=== PATIENT | female | born 1955 | race Caucasian/White ===

== ENCOUNTER 2020-03-09 13:12 | Inpatient (IN) | payer OTHER, MEDICAID ==
[~2020-03-09] VITALS: Ht 152.4 cm; Wt 48.9 kg
[~2020-03-09 13:12] MED LIST: AMIT50TA PO; ARIP2TAB3 PO; AZIT250T6 PO; DOXY100T PO; FLUO20CA16 PO; HYDR-2761 PO; IPRA4AER IH; LEVO75TA5 PO; LORA0.5T PO; POTA10TA12 PO; PRED-220 PO; SIMV40TA18 PO; SULF1TAB24 PO
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
[2020-03-09] MEDS ORDERED: IPRATRPIUM/ALBUTEROL 0.5/2.5MG 3 ML NEBU. NEB ONE (13:30)
[2020-03-09] MEDS ORDERED: IV NORMAL SALINE 1000ML BAG 1,000 ML IV ONE ×2 (13:30→14:30)
[2020-03-09] MEDS ORDERED: ASPIRIN CHEWABLE 81 MG TABLET. PO ONE (13:30)
[2020-03-09] MEDS ORDERED: predniSONE 20 MG TABLET PO ONE (13:30)
--- NOTE | 2020-03-09 13:42 | EKG ---
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
[2020-03-09 13:58] LABS: BASO # 0.1 x10^3/uL (0.0-0.2); BASO % 1 % (0-3); EOS # 0.1 x10^3/uL (0.0-0.7); EOS % 1 % (0-3); HEMATOCRIT 27.5 % (36.0-47.0); HEMOGLOBIN 9.2 g/dL (12.0-15.5); LYMPH # 0.8 x10^3/uL (1.0-4.8); LYMPH % 14 % (24-48); MEAN CORPUSCULAR HEMOGLOBIN 31 pg (25-35); MEAN CORPUSCULAR HGB CONC 34 g/dL (31-37); MEAN CORPUSCULAR VOLUME 92 fL (79-100); MONO # 0.2 x10^3/uL (0.0-1.1); MONO % 4 % (0-9); NEUT # 4.7 x10^3/uL (1.8-7.7); NEUT % 80 % (31-73); PLATELET COUNT 336 x10^3/uL (140-400); RED CELL DISTRIBUTION WIDTH 12.9 % (11.5-14.5); WHITE BLOOD COUNT 5.9 x10^3/uL (4.0-11.0)
[2020-03-09 14:05] LABS: CALCIUM 8.6 mg/dL (8.5-10.1); CREATININE 3.4 mg/dL (0.6-1.0); GFR 13.6; POTASSIUM 4.2 mmol/L (3.5-5.1)
[2020-03-09 14:13] LABS: ALBUMIN 3.9 g/dL (3.4-5.0); ALBUMIN/GLOBULIN RATIO 1.1 (1.0-1.7); MAGNESIUM 1.9 mg/dL (1.8-2.4); TOTAL BILIRUBIN 0.3 mg/dL (0.2-1.0); TOTAL PROTEIN 7.5 g/dL (6.4-8.2)
[2020-03-09] MEDS ORDERED: LIDOCAINE 1% Multi-Dose 20 ML VIAL. ONE (14:26)
--- NOTE | 2020-03-09 14:26 | RAD ---
CHEST AP ONLY 03/09/2020 1:21 PM INDICATION: Chest pain COMPARISON: 03/10/2016 TECHNIQUE: Portable frontal view of the chest is provided. FINDINGS: The cardiomediastinal silhouette is within normal limits. There is a large right sided pneumothorax with right apical pleural separation measuring 2.3 cm, lateral mid thoracic pleural separation measuring 6.7 cm and right basilar pleural separation of 6.8 cm. No significant mediastinal shift. There is atelectasis of the right lower lobe. Chronic interstitial changes are present. No new airspace consolidation is identified. Pulmonary emphysematous changes are suspected. Biapical pleural-parenchymal scarring. No suspicious osseous abnormality. IMPRESSION: Large right-sided pneumothorax without definite mediastinal shift. Chronic interstitial changes are present without new airspace consolidation. FOR INTERNAL CODING PURPOSES Critical result: Findings discussed with ONIEL VANCE at 03/09/2020 2:23 PM. RESULT CODE: (C) Electronically signed by: Krista Painter MD (03/09/2020 2:24 PM) [id number]
[2020-03-09] MEDS ORDERED: fentaNYL PF VIAL 100 MCG/2 ML VIAL IVP ONE (14:30)
[2020-03-09] MEDS ORDERED: LIDOCAINE 1% Multi-Dose 20 ML VIAL. INJ ONE (14:30)
--- NOTE | 2020-03-09 15:28 | RAD ---
CHEST AP ONLY 03/09/2020 12:00 AM INDICATION: Chest tube placement COMPARISON: 03/09/2020 TECHNIQUE: Portable frontal view of the chest is provided. FINDINGS: The cardiomediastinal silhouette is within normal limits. Right-sided thoracostomy catheter is identified projecting over the right midlung. Near complete resolution of right-sided pneumothorax with 4 mm persistent pleural separation. Patchy interstitial changes within the lungs may be chronic. No significant reexpansion edema is noted. Left lung is similar in appearance. No suspicious osseous abnormality. IMPRESSION: Right-sided thoracostomy tube has been placed with interval reexpansion the right lung with tiny persistent right-sided pneumothorax. Electronically signed by: Krista Painter MD (03/09/2020 3:25 PM) [id number]
[2020-03-09] MEDS ORDERED: ONDANSETRON PF 4 MG/2 ML VIAL. IV PRN (15:45)
--- NOTE | 2020-03-09 17:54 | RAD ---
EXAM: AP View of the chest DATE: 03/09/2020 5:22 PM INDICATION: Shortness of breath COMPARISON: 03/09/2020 FINDINGS/ IMPRESSION: Right chest tube is in position. Trace right apical pneumothorax is again seen, grossly unchanged. There are now new/increasing airspace opacities in the right mid and lower lung may represent atelectasis or consolidation although reexpansion syndrome is not excluded. Nodular opacity left midlung may represent focal consolidation. Imaging follow-up to resolution is recommended. No pleural effusion. Electronically signed by: Ady Colon MD (03/09/2020 5:51 PM) ANGELI
--- NOTE | 2020-03-09 19:15 | NUR ---
ADMISSION Pt arrival to room 256 at this time via ER bed. Pt transferred from bed to bed with assist. Pt has patent R upper chest tube in place. No sub Q air palpated at this time. Pt chest tube placed to continuous suction at -20. No air leak noted, connections all secured with tape. Dressing is CDI. Chest tube is draining a small amount of serosanguineous drainage into chest tube chamber. Admission questions completed with patient at this time. She complains of R sided chest tenderness, especially after coughing an intermittent dry cough. Pt updated on plan of care and education done about chest tube, pt verbalized understanding and questions answered. Dr. Reyez was called regarding pain management, home medications and code status as pt states she is a DNR with paperwork on file here at the hospital. Orders received. Order to change code status to DNR also received with Beni Peña RN as witness for this telephone order. service was also paged to notify of new consult with acute renal failure. 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 Pt resting comfortably in bed, items and call light in reach. [place] tray provided for meal.
[2020-03-09 19:25] VITALS: BP 143/73
[2020-03-09] MEDS ORDERED: LEVO88TA4 PO (20:00)
[2020-03-09] MEDS ORDERED: ASPI1TAB31 PO (20:00)
[2020-03-09] MEDS: HYDROcodone/APAP 5/325MG 1 TAB TABLET PO PRN (21:18)
[2020-03-09] MEDS: AMITRIPTYLINE HCL 25 MG TABLET. PO SCH (21:18)
[2020-03-09] MEDS: IV NORMAL SALINE 1000ML BAG 1,000 ML IV SCH (21:23)
[2020-03-09] MEDS: LORazepam 0.5 MG TABLET PO PRN (21:36)
[2020-03-09 23:00] VITALS: BP 121/72
[2020-03-10 03:03] VITALS: BP 129/64
[2020-03-10 05:06] LABS: BASO % 0 % (0-3); EOS % 0 % (0-3); HEMATOCRIT 22.7 % (36.0-47.0); HEMOGLOBIN 7.8 g/dL (12.0-15.5); LYMPH # 0.5 x10^3/uL (1.0-4.8); LYMPH % 5 % (24-48); MEAN CORPUSCULAR HEMOGLOBIN 31 pg (25-35); MEAN CORPUSCULAR HGB CONC 34 g/dL (31-37); MEAN CORPUSCULAR VOLUME 91 fL (79-100); MONO # 0.4 x10^3/uL (0.0-1.1); MONO % 3 % (0-9); NEUT # 11.2 x10^3/uL (1.8-7.7); NEUT % 92 % (31-73); PLATELET COUNT 266 x10^3/uL (140-400); RED CELL DISTRIBUTION WIDTH 13.4 % (11.5-14.5); WHITE BLOOD COUNT 12.1 x10^3/uL (4.0-11.0)
[2020-03-10 05:34] LABS: ALBUMIN 2.5 g/dL (3.4-5.0); ALBUMIN/GLOBULIN RATIO 0.9 (1.0-1.7); CREATININE 3.2 mg/dL (0.6-1.0); GFR 14.6; POTASSIUM 4.1 mmol/L (3.5-5.1); TOTAL BILIRUBIN 0.2 mg/dL (0.2-1.0); TOTAL PROTEIN 5.4 g/dL (6.4-8.2)
[2020-03-10] MEDS: HYDROcodone/APAP 5/325MG 1 TAB TABLET PO PRN ×3 (05:39→23:29)
[2020-03-10] MEDS: IV NORMAL SALINE 1000ML BAG 1,000 ML IV SCH ×2 (05:40→21:21)
--- NOTE | 2020-03-10 06:20 | RAD ---
Examination: Ultrasound kidneys HISTORY: History of renal failure COMPARISON: None available FINDINGS: The right kidney measures 8.0 x 4.5 x 4.2 cm. The left kidney measures 8.7 x 3.9 x 3.2 cm. Echogenic appearing bilateral kidneys. Small cysts identified in the bilateral kidneys. Urinary bladder is mildly distended. Partially visualized right pleural effusion. IMPRESSION: 1.Echogenic appearing bilateral kidneys probably medical renal disease. 2. Cystic structures identified in the bilateral kidneys probably cysts. Electronically signed by: Jean Carlos Blanc MD (03/10/2020 6:17 AM) [id number]
[2020-03-10 07:00] VITALS: BP 163/77
[2020-03-10 07:37] LABS: % BANDS 1 % (0-9); % LYMPHS 6 % (24-48); % MONOS 2 % (0-10); % SEGS 91 % (35-66); PLT ESTIMATE ADEQUATE (ADEQUATE)
[2020-03-10] MEDS ORDERED: FLU VACC QS 2020-21(6MOS+)/PF 0.5 ML SYRINGE. VAX IM ONE (09:00)
--- NOTE | 2020-03-10 09:47 | RAD ---
PORTABLE CHEST 1V Clinical indications: Chest tube. Follow-up study COMPARISON: March 09, 2020. FINDINGS/ IMPRESSION: Right-sided chest tube is unchanged in position. No pneumothorax is seen. No pleural effusion is seen. Consolidative infiltrate within the right lower lung zone is unchanged. There is an increase in interstitial infiltrate within the left midlung zone. Heart size and mediastinum are stable. There is moderate gaseous distention of the stomach. Electronically signed by: Darwin Rob MD (03/10/2020 9:44 AM) [id number]
[2020-03-10] MEDS: LEVOTHYROXINE 88 MCG TABLET PO SCH (10:51)
--- NOTE | 2020-03-10 10:54 | PDOC ---
Provider Note Date of Service: DATE: 03/10/20 TIME: 10:53 Provider Note Pt seen.H&P dictated.#[id number]. Justifications for Admission Other Justification SUZAN HEARD MD Mar 10, 2020 10:54
[2020-03-10 11:00] VITALS: BP 150/75
--- NOTE | 2020-03-10 11:39 | HP ---
ADMIT DATE: 03/09/2020 REASON FOR ADMISSION TO THE HOSPITAL: Spontaneous pneumothorax. HISTORY OF PRESENT ILLNESS: The patient is a 64-year-old female with chronic COPD, on home oxygen; poor functional status; anxiety; depression. She noticed to have worsening shortness of breath yesterday. She denies any injury or fall and was brought to the hospital. She had pneumothorax in the right. She has had a chest tube placed, was admitted to the second floor. The patient was seen by Pulmonology. PAST MEDICAL HISTORY: Has chronic COPD, anxiety, depression, chronic kidney disease. PAST SURGICAL HISTORY: Previous surgeries, no major surgeries. ALLERGIES: PENICILLIN. PERSONAL HISTORY: Former smoker, smoked for at least 30 years, 1 pack, stopped smoking 20 years ago. Denies alcohol or street drugs. MEDICATIONS AT HOME: The patient is on Excedrin p.r.n., amitriptyline 50 mg daily, hydrocodone 5/325 twice a day, levothyroxine 88 mcg daily, lorazepam 0.5 three times a day. She is on home oxygen. FAMILY HISTORY: Her mom had severe COPD and bad lungs; she . Dad had some cardiac problems, . REVIEW OF SYSTEMS: Denies any chest pain, worsening shortness of breath when she came in, she feels better, had some pain at the chest tube site. Denies any fever, denies any fall or injuries. PHYSICAL EXAMINATION: GENERAL: The patient looks chronically older than her age. VITAL SIGNS: Temperature 98, pulse 111, respirations 28, blood pressure 195/102, 95 on room air. The patient is on oxygen. HEENT: Head is atraumatic. Pupils equal. Oral cavity, no teeth. NECK: Supple. . CHEST: Chronic obstructive pulmonary disease. She is emaciated. CARDIOVASCULAR: S1, S2. LUNGS: Has a chest tube on the right side, diminished breath sounds. ABDOMEN: Soft, no mass palpable. The patient has a Gaspar catheter. RECTAL: Deferred. EXTREMITIES: No calf tenderness, no edema. The patient is having a conversation. NEUROLOGIC: Moving upper extremities and lower extremities. LABORATORY DATA: White count 6, hemoglobin 9, platelets 336. Electrolytes show sodium 140, potassium 4.2, chloride 105, bicarb 15, anion gap 20, BUN 33, creatinine 3.4. Lactic acid 0.6, magnesium 1.9. LFTs normal. Troponin is negative. Chest x-ray at admission shows pneumothorax on the right side. FINAL IMPRESSION: 1. Spontaneous right pneumothorax. 2. Chronic obstructive pulmonary disease with emphysema. 3. Chronic kidney disease, creatinine of 3. 4. Hypothyroidism. 5. Anxiety with depression. PLAN: At this time, the patient was admitted to the hospital, had a chest tube placed in the Emergency Room with water seal. Patient was admitted to the second floor. Pulmonary is consulted and the patient also has kidney failure with creatinine of 3.5 and 1.5 two years ago. We will do ultrasound of the kidneys, renal consult, cautious hydration and see if that improves her renal function. SUZAN HEARD MD DR: ANGELA/lei JOB#: [id number] / [id number]
--- NOTE | 2020-03-10 11:39 | CONS ---
DATE OF CONSULTATION: PULMONARY CONSULTATION ATTENDING PHYSICIAN: Tita Reyez MD REASON FOR CONSULTATION: Pneumothorax. HISTORY OF PRESENT ILLNESS: The patient is a 64-year-old who has history of tobacco use for 25-30 years, but quit 20 years ago. She is not on home oxygen. She came into the hospital with complaint of chest pain. It was mostly heaviness over the last 2 weeks. She has some dyspnea for the same duration. No headaches. No trauma. No nausea, vomiting or diarrhea. No significant weight loss. She was seen in the Emergency Room and she was found to have a large pneumothorax. As a result, she underwent chest tube. The lung is now almost reexpanded. However, there were some interstitial infiltrates seen bilaterally, which did increase since admission. She is getting IV fluids for SY versus CKD. She still has an air leak. This is the first time she has a pneumothorax. PAST MEDICAL HISTORY: Significant for COPD, unknown FEV1. History of CHF, dementia, depression, migraines and pneumonia. History of lupus. Anemia and anxiety. PAST SURGICAL HISTORY: No surgeries. SOCIAL HISTORY: Quit tobacco 20 years ago, before the smoke for about 25-30 years. ALLERGIES: PENICILLIN. MEDICATIONS: Reviewed as listed in the MRAD. REVIEW OF SYSTEMS: A 12-point system review obtained. Pertinent positives discussed in my history of present illness, otherwise noncontributory. All systems that were negative were reviewed as well. FAMILY HISTORY: non contributary to lungs PHYSICAL EXAMINATION: VITAL SIGNS: Reviewed, pulse ox 100% on 2 liters. NECK: Supple. LUNGS: With few crackles, right base. CARDIOVASCULAR: With a regular rate. ABDOMEN: Soft. EXTREMITIES: With no pitting edema. LABORATORY DATA: Reviewed. White cell count 12.1, hemoglobin 7.8, and platelets are 266. Her BUN and creatinine are 39 and 3.2. IMPRESSION: 1. Nontraumatic spontaneous right-sided pneumothorax. This is the first time she had the pneumothorax, likely related to chronic obstructive pulmonary disease. 2. Interstitial infiltrates, more on the right than on the left. Could be related to mild interstitial edema. She is getting IV fluids for her acute kidney injury versus chronic kidney disease. Need to closely watch. At this point, her saturations are stable on 2 liters. 3. Underlying chronic obstructive pulmonary disease. RECOMMENDATIONS: 1. Continue chest tube to suction. She has an air leak. 2. Follow daily chest x-rays. 3. Need to closely watch her oxygenation while getting her IV fluids. 4. Obtain proBNP and procalcitonin level. Clinically, less likely pneumonia. 5. We will follow along with you. Discussed with Dr. Reyez. GAIVN MATHIAS MD DR: YOGESH/lei JOB#: [id number] / [id number] FAN
[2020-03-10 15:00] VITALS: BP 128/72
[2020-03-10 20:00] VITALS: BP 136/72
--- NOTE | 2020-03-10 21:14 | CONS ---
DATE OF CONSULTATION: NEPHROLOGY CONSULTATION REQUESTING PHYSICIAN: Tita Reyez MD. REASON FOR CONSULTATION: Renal failure. HISTORY OF PRESENT ILLNESS: This is a 64-year-old female with history of COPD and hypothyroidism. She has no history of diabetes mellitus, nephrolithiasis, gross hematuria, difficulty with urination or hypertension. She has no history of malignancies. She now presents with spontaneous pneumothorax, being evaluated for the same. Per discussion with Dr. Reyez, the patient's serum creatinine was 1.5 mg percent 2 years prior to this evaluation; 2 months prior to evaluation, it was 3. She was instructed to see a reservations and ticketing agent, but has not pursued the same. Currently, creatinine is 3.2, GFR 14.6. Potassium 4.1, CO2 of 15. No nausea, vomiting or diarrhea. PAST MEDICAL HISTORY: COPD, hypothyroidism, anxiety, depression. ALLERGIES: PENICILLIN. MEDICATIONS: Reviewed per medication list. FAMILY HISTORY: Noncontributory. SOCIAL HISTORY: The patient is a former smoker, discontinued 20 years ago, [id number] prior to that time. REVIEW OF SYSTEMS: No headache, sinus problem, nasal drainage, epistaxis, change in vision or hearing. No difficulty swallowing. No fever, chills, cough, sputum, hemoptysis. No chest pain or shortness of breath at this time. No abdominal pain. No nausea, vomiting, diarrhea. No seizures or malignancies. She does have chest tube in place. PHYSICAL EXAMINATION: GENERAL APPEARANCE: The patient is awake, conversant. She looks older than her stated age. HEENT: Bitemporal wasting. Eyes are sunken, sallow complexion. NECK: No increased JVD. No thyromegaly, mass or adenopathy. LUNGS: Clear. CARDIAC: Without S3 or rub. ABDOMEN: Scaphoid, nontender. EXTREMITIES: Diffuse muscle wasting. No edema. NEUROLOGIC: Nonfocal, nonlocalized. PSYCHIATRIC: Fair attention to detail, appropriate affect. LABORATORY DATA: Sodium 140, potassium 4.1, chloride 109, CO2 of 15, BUN 39, creatinine 3.2, GFR 14.6, glucose 145, total protein 5.4, albumin 2.5. Hemoglobin 7.8, hematocrit 22.7, white count 12.1, platelets 266. IMPRESSION: Renal failure, chronic. Has been progressive over at least several years. Renal ultrasound revealed right kidney 8 cm and left 8.7 cm, both echogenic and small. Chronic kidney disease - very likely end-stage renal disease status. She has small kidneys and has markedly reduced GFR. No history of diabetes mellitus or hypertension per her report and records. May have underlying chronic interstitial nephritis or chronic glomerulonephritis. PLAN: 1. 24-hour urine for total protein. 2. Trend labs. 3. May require initiation of dialysis. RADHA HOWE MD DR: CIPRIANO/lei JOB#: [id number] / [id number]
[2020-03-10] MEDS: AMITRIPTYLINE HCL 25 MG TABLET. PO SCH (21:19)
[2020-03-10 23:35] VITALS: BP 166/67
[2020-03-11] MEDS: IV NORMAL SALINE 1000ML BAG 1,000 ML IV SCH ×3 (02:15→19:17)
[2020-03-11] MEDS: LORazepam 0.5 MG TABLET PO PRN ×3 (02:34→19:15)
[2020-03-11 03:35] VITALS: BP 143/64
[2020-03-11 04:38] LABS: BASO % 0 % (0-3); EOS % 0 % (0-3); HEMATOCRIT 21.4 % (36.0-47.0); HEMOGLOBIN 7.1 g/dL (12.0-15.5); LYMPH % 12 % (24-48); MEAN CORPUSCULAR HEMOGLOBIN 31 pg (25-35); MEAN CORPUSCULAR HGB CONC 33 g/dL (31-37); MEAN CORPUSCULAR VOLUME 93 fL (79-100); MONO # 0.6 x10^3/uL (0.0-1.1); MONO % 7 % (0-9); NEUT # 7.1 x10^3/uL (1.8-7.7); NEUT % 81 % (31-73); PLATELET COUNT 236 x10^3/uL (140-400); RED BLOOD COUNT 2.31 x10^6/uL (3.50-5.40); RED CELL DISTRIBUTION WIDTH 13.4 % (11.5-14.5); WHITE BLOOD COUNT 8.8 x10^3/uL (4.0-11.0)
[2020-03-11 04:52] LABS: ALBUMIN 2.7 g/dL (3.4-5.0); CALCIUM 7.9 mg/dL (8.5-10.1); CREATININE 3.1 mg/dL (0.6-1.0); GFR 15.2; POTASSIUM 3.4 mmol/L (3.5-5.1); TOTAL BILIRUBIN 0.2 mg/dL (0.2-1.0); TOTAL PROTEIN 5.5 g/dL (6.4-8.2)
[2020-03-11] MEDS: LEVOTHYROXINE 88 MCG TABLET PO SCH (06:18)
[2020-03-11 07:00] VITALS: BP 128/61
--- NOTE | 2020-03-11 08:47 | RAD ---
EXAM: CHEST AP ONLY INDICATION: Reason: pneumohtorax / Spl. Instructions: / History: . TECHNIQUE: Single view COMPARISON: 03/10/2020 chest x-ray FINDINGS: Stable right chest tube. The heart size is normal. The great vessels show aortic calcification and otherwise appear unremarkable. There is no hilar or mediastinal mass. Lungs show biapical pleural thickening and scarring in the setting of COPD with residual opacity in the right lung, gradually improved in the interval. No radiographically apparent pneumothorax or pleural effusion. There are no significant osseous abnormalities. IMPRESSION: COPD with improving aeration in the right lung with a right chest tube in place. No definite residual pneumothorax or pleural effusion seen. Electronically signed by: Eufemia Moran MD (03/11/2020 8:44 AM) [facility] [place]
--- NOTE | 2020-03-11 10:28 | PDOC ---
PULMONARY PROGRESS NOTES DATE: 03/11/20 TIME: 10:16 Subjective no overnight concerns no increased SOB, no cough chest tube still has air leak Vitals Vital Signs Date Time Temp Pulse Resp B/P (MAP) Pulse Ox O2 Delivery O2 Flow Rate FiO2 03/11/20 08:00 Nasal Cannula 2.0 03/11/20 07:00 98.0 80 16 128/61 (83) 100 98.0 ROS: No Nausea, No Chest Pain, No Abdominal Pain, No Increase Cough General: Alert, Oriented X4 Lungs: Clear Cardiovascular: S1, S2 Abdomen: Soft Neuro Exam: Alert Extremities: No Edema Skin: Warm, Dry Labs Laboratory Tests Test 03/09/20 13:42 03/09/20 14:17 03/10/20 02:00 03/10/20 04:00 White Blood Count 5.9 x10^3/uL (4.0-11.0) 12.1 x10^3/uL (4.0-11.0) Red Blood Count 3.00 x10^6/uL (3.50-5.40) 2.50 x10^6/uL (3.50-5.40) Hemoglobin 9.2 g/dL (12.0-15.5) 7.8 g/dL (12.0-15.5) Hematocrit 27.5 % (36.0-47.0) 22.7 % (36.0-47.0) Mean Corpuscular Volume 92 fL (79-100) 91 fL (79-100) Mean Corpuscular Hemoglobin 31 pg (25-35) 31 pg (25-35) Mean Corpuscular Hemoglobin Concent 34 g/dL (31-37) 34 g/dL (31-37) Red Cell Distribution Width 12.9 % (11.5-14.5) 13.4 % (11.5-14.5) Platelet Count 336 x10^3/uL (140-400) 266 x10^3/uL (140-400) Neutrophils (%) (Auto) 80 % (31-73) 92 % (31-73) Lymphocytes (%) (Auto) 14 % (24-48) 5 % (24-48) Monocytes (%) (Auto) 4 % (0-9) 3 % (0-9) Eosinophils (%) (Auto) 1 % (0-3) 0 % (0-3) Basophils (%) (Auto) 1 % (0-3) 0 % (0-3) Neutrophils # (Auto) 4.7 x10^3/uL (1.8-7.7) 11.2 x10^3/uL (1.8-7.7) Lymphocytes # (Auto) 0.8 x10^3/uL (1.0-4.8) 0.5 x10^3/uL (1.0-4.8) Monocytes # (Auto) 0.2 x10^3/uL (0.0-1.1) 0.4 x10^3/uL (0.0-1.1) Eosinophils # (Auto) 0.1 x10^3/uL (0.0-0.7) 0.0 x10^3/uL (0.0-0.7) Basophils # (Auto) 0.1 x10^3/uL (0.0-0.2) 0.0 x10^3/uL (0.0-0.2) Sodium Level 140 mmol/L (136-145) 140 mmol/L (136-145) Potassium Level 4.2 mmol/L (3.5-5.1) 4.1 mmol/L (3.5-5.1) Chloride Level 105 mmol/L (98-107) 109 mmol/L (98-107) Carbon Dioxide Level 15 mmol/L (21-32) 15 mmol/L (21-32) Anion Gap 20 (6-14) 16 (6-14) Blood Urea Nitrogen 33 mg/dL (7-20) 39 mg/dL (7-20) Creatinine 3.4 mg/dL (0.6-1.0) 3.2 mg/dL (0.6-1.0) Estimated GFR (Cockcroft-Gault) 13.6 14.6 BUN/Creatinine Ratio 10 (6-20) 12 (6-20) Glucose Level 81 mg/dL (70-99) 145 mg/dL (70-99) Calcium Level 8.6 mg/dL (8.5-10.1) 8.0 mg/dL (8.5-10.1) Magnesium Level 1.9 mg/dL (1.8-2.4) Total Bilirubin 0.3 mg/dL (0.2-1.0) 0.2 mg/dL (0.2-1.0) Aspartate Amino Transf (AST/SGOT) 17 U/L (15-37) 15 U/L (15-37) Alanine Aminotransferase (ALT/SGPT) 12 U/L (14-59) 7 U/L (14-59) Alkaline Phosphatase 90 U/L (46-116) 71 U/L (46-116) Creatine Kinase 38 U/L (26-192) Troponin I Quantitative < 0.017 ng/mL (0.000-0.055) TT-Thc-Z-Type Natriuretic Peptide 1918 pg/mL (0-124) 1864 pg/mL (0-124) Total Protein 7.5 g/dL (6.4-8.2) 5.4 g/dL (6.4-8.2) Albumin 3.9 g/dL (3.4-5.0) 2.5 g/dL (3.4-5.0) Albumin/Globulin Ratio 1.1 (1.0-1.7) 0.9 (1.0-1.7) Lipase 139 U/L (73-393) Lactic Acid Level 0.6 mmol/L (0.4-2.0) Procalcitonin 1.12 ng/mL (0.00-0.10) Segmented Neutrophils % 91 % (35-66) Band Neutrophils % 1 % (0-9) Lymphocytes % 6 % (24-48) Monocytes % 2 % (0-10) Platelet Estimate Adequate (ADEQUATE) Test 03/11/20 04:00 White Blood Count 8.8 x10^3/uL (4.0-11.0) Red Blood Count 2.31 x10^6/uL (3.50-5.40) Hemoglobin 7.1 g/dL (12.0-15.5) Hematocrit 21.4 % (36.0-47.0) Mean Corpuscular Volume 93 fL (79-100) Mean Corpuscular Hemoglobin 31 pg (25-35) Mean Corpuscular Hemoglobin Concent 33 g/dL (31-37) Red Cell Distribution Width 13.4 % (11.5-14.5) Platelet Count 236 x10^3/uL (140-400) Neutrophils (%) (Auto) 81 % (31-73) Lymphocytes (%) (Auto) 12 % (24-48) Monocytes (%) (Auto) 7 % (0-9) Eosinophils (%) (Auto) 0 % (0-3) Basophils (%) (Auto) 0 % (0-3) Neutrophils # (Auto) 7.1 x10^3/uL (1.8-7.7) Lymphocytes # (Auto) 1.0 x10^3/uL (1.0-4.8) Monocytes # (Auto) 0.6 x10^3/uL (0.0-1.1) Eosinophils # (Auto) 0.0 x10^3/uL (0.0-0.7) Basophils # (Auto) 0.0 x10^3/uL (0.0-0.2) Sodium Level 141 mmol/L (136-145) Potassium Level 3.4 mmol/L (3.5-5.1) Chloride Level 110 mmol/L (98-107) Carbon Dioxide Level 19 mmol/L (21-32) Anion Gap 12 (6-14) Blood Urea Nitrogen 38 mg/dL (7-20) Creatinine 3.1 mg/dL (0.6-1.0) Estimated GFR (Cockcroft-Gault) 15.2 BUN/Creatinine Ratio 12 (6-20) Glucose Level 69 mg/dL (70-99) Calcium Level 7.9 mg/dL (8.5-10.1) Total Bilirubin 0.2 mg/dL (0.2-1.0) Aspartate Amino Transf (AST/SGOT) 14 U/L (15-37) Alanine Aminotransferase (ALT/SGPT) 11 U/L (14-59) Alkaline Phosphatase 63 U/L (46-116) Total Protein 5.5 g/dL (6.4-8.2) Albumin 2.7 g/dL (3.4-5.0) Albumin/Globulin Ratio 1.0 (1.0-1.7) Laboratory Tests Test 03/11/20 04:00 White Blood Count 8.8 x10^3/uL (4.0-11.0) Red Blood Count 2.31 x10^6/uL (3.50-5.40) Hemoglobin 7.1 g/dL (12.0-15.5) Hematocrit 21.4 % (36.0-47.0) Mean Corpuscular Volume 93 fL (79-100) Mean Corpuscular Hemoglobin 31 pg (25-35) Mean Corpuscular Hemoglobin Concent 33 g/dL (31-37) Red Cell Distribution Width 13.4 % (11.5-14.5) Platelet Count 236 x10^3/uL (140-400) Neutrophils (%) (Auto) 81 % (31-73) Lymphocytes (%) (Auto) 12 % (24-48) Monocytes (%) (Auto) 7 % (0-9) Eosinophils (%) (Auto) 0 % (0-3) Basophils (%) (Auto) 0 % (0-3) Neutrophils # (Auto) 7.1 x10^3/uL (1.8-7.7) Lymphocytes # (Auto) 1.0 x10^3/uL (1.0-4.8) Monocytes # (Auto) 0.6 x10^3/uL (0.0-1.1) Eosinophils # (Auto) 0.0 x10^3/uL (0.0-0.7) Basophils # (Auto) 0.0 x10^3/uL (0.0-0.2) Sodium Level 141 mmol/L (136-145) Potassium Level 3.4 mmol/L (3.5-5.1) Chloride Level 110 mmol/L (98-107) Carbon Dioxide Level 19 mmol/L (21-32) Anion Gap 12 (6-14) Blood Urea Nitrogen 38 mg/dL (7-20) Creatinine 3.1 mg/dL (0.6-1.0) Estimated GFR (Cockcroft-Gault) 15.2 BUN/Creatinine Ratio 12 (6-20) Glucose Level 69 mg/dL (70-99) Calcium Level 7.9 mg/dL (8.5-10.1) Total Bilirubin 0.2 mg/dL (0.2-1.0) Aspartate Amino Transf (AST/SGOT) 14 U/L (15-37) Alanine Aminotransferase (ALT/SGPT) 11 U/L (14-59) Alkaline Phosphatase 63 U/L (46-116) Total Protein 5.5 g/dL (6.4-8.2) Albumin 2.7 g/dL (3.4-5.0) Albumin/Globulin Ratio 1.0 (1.0-1.7) Medications Active Scripts Medications Dose Route/Sig Max Daily Dose Days Date Category Excedrin Migraine Caplet (Aspirin/Acetaminophen/Caffeine) 1 Each Tablet 1 Each PO PRN BID PRN 03/09/20 Reported Levothyroxine Sodium 88 Mcg Tablet 1 Tab PO DAILY 03/09/20 Reported Amitriptyline Hcl 50 Mg Tablet 1 Tab PO QHS 10/14/15 Reported Hydrocodone-Apap 5-325 (Hydrocodone Bit/Acetaminophen) 1 Each Tablet 1 Tab PO PRN Q12HRS PRN 10/14/15 Reported Lorazepam 0.5 Mg Tablet 0.5 Mg PO TID PRN 10/13/15 Reported Comments CXR IMPRESSION: COPD with improving aeration in the right lung with a right chest tube in place. No definite residual pneumothorax or pleural effusion seen. Impression . IMPRESSION: 1. Nontraumatic spontaneous right-sided pneumothorax. This is the first time she had the pneumothorax, likely related to chronic obstructive pulmonary disease. 2. Interstitial infiltrates, more on the right than on the left. Could be related to mild re-expansion interstitial edema. She is getting IV fluids for her acute kidney injury versus chronic kidney disease. Need to closely watch. At this point, her saturations are stable on 2 liters. 3. Underlying chronic obstructive pulmonary disease. 4. SY--- ongoing Plan . RECOMMENDATIONS: Continue supplemental oxygen to keep sats above 92% Continue chest tube to suction. She still has an air leak. Follow daily chest x-rays--- CXR- worsening bilateral infiltrates re-expansion pulm. edema vs. pneumonia Will initiate abx today Hold of on lasix 2/2 renal function Follow Renal recommendations DVT/GI PPX D/W RN and PT. DNR GAVIN MATHIAS MD Mar 11, 2020 10:28
[2020-03-11 11:00] VITALS: BP 134/65
--- NOTE | 2020-03-11 11:55 | PDOC ---
PROGRESS NOTES Date of Service: DATE: 03/11/20 TIME: 11:52 Subjective Subjective anxious and pain at chest tube site Objective Objective Vital Signs Date Time Temp Pulse Resp B/P (MAP) Pulse Ox O2 Delivery O2 Flow Rate FiO2 03/11/20 08:00 Nasal Cannula 2.0 03/11/20 07:00 98.0 80 16 128/61 (83) 100 98.0 Intake and Output 03/11/20 07:00 Intake Total 418 ml Output Total 2240 ml Balance -1822 ml Intake Oral 418 ml Output Urine Total 2050 ml Chest Tube Drainage Total 190 ml # Voids 1 # Bowel Movements 2 Physical Exam Abdomen: Soft Heart: Normal S1, Normal S2 Extremities: No clubbing General: Alert HEENT: Atraumatic Lungs: Clear to auscultation MUSCULOSKELETAL: No deformity Neck: Supple Neuro: Normal speech Psych/Mental Status: Mental status NL Skin: No breakdown COMMENT Rt chest tube Diagnosis Problem List Problems Medical Problems: (1) Acute renal failure Status: Acute (2) Adult failure to thrive Status: Acute (3) Anemia Status: Acute (4) Secondary spontaneous pneumothorax Status: Acute Assessment Assessment Problems Medical Problems: (1) Acute renal failure Status: Acute (2) Adult failure to thrive Status: Acute (3) Anemia Status: Acute (4) Secondary spontaneous pneumothorax Status: Acute FINAL IMPRESSION: 1. Spontaneous right Pneumothorax. 2. Chronic obstructive pulmonary disease with emphysema. 3. Chronic kidney disease, creatinine of 3. 4. Hypothyroidism. 5. Anxiety with depression. PLAN: chest t ub eplaced in ER water seal cxr improvement cr 3.1. sono kidneys, shows ch kidney diasese. dvt prevention. xanax+lortab At this time, the patient was admitted to the hospital, had a chest tube placed in the Emergency Room with water seal. Patient was admitted to the second floor. Pulmonary is consulted and the patient also has kidney failure with creatinine of 3.5 and 1.5 two years ago. We will do ultrasound of the kidneys, renal consult, cautious hydration and see if that improves her renal function. Plan Plan of Care Problems Medical Problems: (1) Acute renal failure Status: Acute (2) Adult failure to thrive Status: Acute (3) Anemia Status: Acute (4) Secondary spontaneous pneumothorax Status: Acute Comment Review of Relevant I have reviewed the following items rené (where applicable) has been applied. Labs Laboratory Tests Test 03/11/20 04:00 White Blood Count 8.8 x10^3/uL (4.0-11.0) Red Blood Count 2.31 x10^6/uL (3.50-5.40) Hemoglobin 7.1 g/dL (12.0-15.5) Hematocrit 21.4 % (36.0-47.0) Mean Corpuscular Volume 93 fL (79-100) Mean Corpuscular Hemoglobin 31 pg (25-35) Mean Corpuscular Hemoglobin Concent 33 g/dL (31-37) Red Cell Distribution Width 13.4 % (11.5-14.5) Platelet Count 236 x10^3/uL (140-400) Neutrophils (%) (Auto) 81 % (31-73) Lymphocytes (%) (Auto) 12 % (24-48) Monocytes (%) (Auto) 7 % (0-9) Eosinophils (%) (Auto) 0 % (0-3) Basophils (%) (Auto) 0 % (0-3) Neutrophils # (Auto) 7.1 x10^3/uL (1.8-7.7) Lymphocytes # (Auto) 1.0 x10^3/uL (1.0-4.8) Monocytes # (Auto) 0.6 x10^3/uL (0.0-1.1) Eosinophils # (Auto) 0.0 x10^3/uL (0.0-0.7) Basophils # (Auto) 0.0 x10^3/uL (0.0-0.2) Sodium Level 141 mmol/L (136-145) Potassium Level 3.4 mmol/L (3.5-5.1) Chloride Level 110 mmol/L (98-107) Carbon Dioxide Level 19 mmol/L (21-32) Anion Gap 12 (6-14) Blood Urea Nitrogen 38 mg/dL (7-20) Creatinine 3.1 mg/dL (0.6-1.0) Estimated GFR (Cockcroft-Gault) 15.2 BUN/Creatinine Ratio 12 (6-20) Glucose Level 69 mg/dL (70-99) Calcium Level 7.9 mg/dL (8.5-10.1) Total Bilirubin 0.2 mg/dL (0.2-1.0) Aspartate Amino Transf (AST/SGOT) 14 U/L (15-37) Alanine Aminotransferase (ALT/SGPT) 11 U/L (14-59) Alkaline Phosphatase 63 U/L (46-116) Total Protein 5.5 g/dL (6.4-8.2) Albumin 2.7 g/dL (3.4-5.0) Albumin/Globulin Ratio 1.0 (1.0-1.7) Vitals/I & O Vital Sign - Last 24 Hours 03/10/20 03/10/20 03/10/20 03/10/20 15:00 17:05 18:05 20:00 Temp 98.2 97.6 98.2 97.6 Pulse 84 82 Resp 16 18 B/P (MAP) 128/72 (90) 136/72 (93) Pulse Ox 99 100 O2 Delivery Nasal Cannula Nasal Cannula Nasal Cannula Nasal Cannula O2 Flow Rate 2.0 2.0 2.0 2.0 03/10/20 03/10/20 03/10/20 03/11/20 20:00 23:29 23:35 00:30 Temp 97.8 97.8 Pulse 83 Resp 18 B/P (MAP) 166/67 (100) Pulse Ox 100 O2 Delivery Nasal Cannula Room Air Nasal Cannula Nasal Cannula O2 Flow Rate 2.0 2.0 2.0 03/11/20 03/11/20 03/11/20 03:35 07:00 08:00 Temp 97.7 98.0 97.7 98.0 Pulse 83 80 Resp 18 16 B/P (MAP) 143/64 (90) 128/61 (83) Pulse Ox 97 100 O2 Delivery Nasal Cannula Nasal Cannula Nasal Cannula O2 Flow Rate 2.0 2.0 2.0 Intake and Output 03/10/20 03/10/20 03/11/20 15:00 23:00 07:00 Intake Total 118 ml 300 ml Output Total 400 ml 390 ml 1450 ml Balance -282 ml -390 ml -1150 ml Justifications for Admission Other Justification SUZAN HEARD MD Mar 11, 2020 11:55
[2020-03-11] MEDS: ENOXAPARIN 30 MG/0.3 ML SYRINGE. SQ SCH (12:24)
[2020-03-11 15:00] VITALS: BP 111/55
[2020-03-11 19:50] VITALS: BP 167/75
[2020-03-11] MEDS: AMITRIPTYLINE HCL 25 MG TABLET. PO SCH (22:18)
[2020-03-11 23:05] VITALS: BP 156/74
[2020-03-12] MEDS: HYDROcodone/APAP 5/325MG 1 TAB TABLET PO PRN ×4 (01:22→22:03)
[2020-03-12 03:30] VITALS: BP 135/70
[2020-03-12] MEDS: IV NORMAL SALINE 1000ML BAG 1,000 ML IV SCH ×3 (04:55→21:57)
[2020-03-12] MEDS: LEVOTHYROXINE 88 MCG TABLET PO SCH (05:51)
[2020-03-12 07:00] VITALS: BP 146/78
[2020-03-12 07:07] LABS: CALCIUM 7.5 mg/dL (8.5-10.1); CREATININE 2.6 mg/dL (0.6-1.0); GFR 18.6; POTASSIUM 3.5 mmol/L (3.5-5.1)
[2020-03-12 07:21] LABS: BASO % 1 % (0-3); EOS # 0.3 x10^3/uL (0.0-0.7); EOS % 4 % (0-3); HEMATOCRIT 22.1 % (36.0-47.0); HEMOGLOBIN 7.3 g/dL (12.0-15.5); LYMPH # 1.6 x10^3/uL (1.0-4.8); LYMPH % 20 % (24-48); MEAN CORPUSCULAR HEMOGLOBIN 30 pg (25-35); MEAN CORPUSCULAR HGB CONC 33 g/dL (31-37); MEAN CORPUSCULAR VOLUME 92 fL (79-100); MONO # 0.4 x10^3/uL (0.0-1.1); MONO % 6 % (0-9); NEUT # 5.5 x10^3/uL (1.8-7.7); NEUT % 70 % (31-73); PLATELET COUNT 221 x10^3/uL (140-400); RED BLOOD COUNT 2.39 x10^6/uL (3.50-5.40); RED CELL DISTRIBUTION WIDTH 14.1 % (11.5-14.5); WHITE BLOOD COUNT 7.9 x10^3/uL (4.0-11.0)
--- NOTE | 2020-03-12 08:26 | PDOC ---
PROGRESS NOTES Date of Service: DATE: 03/12/20 TIME: 08:22 Subjective Subjective no new problems Objective Objective Vital Signs Date Time Temp Pulse Resp B/P (MAP) Pulse Ox O2 Delivery O2 Flow Rate FiO2 03/12/20 03:30 98.1 78 18 135/70 (91) 96 Room Air 98.1 03/11/20 20:10 2.0 Intake and Output 03/12/20 07:00 Intake Total 1118 ml Output Total 3050 ml Balance -1932 ml Intake Oral 1118 ml Output Urine Total 2800 ml Chest Tube Drainage Total 180 ml Drainage Total 70 ml Physical Exam Abdomen: Soft Heart: Normal S1, Normal S2 Extremities: No clubbing General: Alert HEENT: Atraumatic Lungs: Clear to auscultation MUSCULOSKELETAL: No deformity Neck: Supple Neuro: Normal speech Psych/Mental Status: Mental status NL Skin: No breakdown COMMENT Rt chest tube Diagnosis Problem List Problems Medical Problems: (1) Acute renal failure Status: Acute (2) Adult failure to thrive Status: Acute (3) Anemia Status: Acute (4) Secondary spontaneous pneumothorax Status: Acute Assessment Assessment Problems Medical Problems: (1) Acute renal failure Status: Acute (2) Adult failure to thrive Status: Acute (3) Anemia Status: Acute (4) Secondary spontaneous pneumothorax Status: Acute FINAL IMPRESSION: 1. Spontaneous right Pneumothorax. 2. Chronic obstructive pulmonary disease with emphysema. 3. Chronic kidney disease, creatinine of 3. 4. Hypothyroidism. 5. Anxiety with depression. PLAN: cxr improvement chest tube placed in ER water seal cxr improvement cr 2.5 improving.24 urine test sono kidneys, shows ch kidney diasese. dvt prevention. xanax+lortab. ? remove chest tube today At this time, the patient was admitted to the hospital, had a chest tube placed in the Emergency Room with water seal. Patient was admitted to the second floor. Pulmonary is consulted and the patient also has kidney failure with creatinine of 3.5 and 1.5 two years ago. We will do ultrasound of the kidneys, renal consult, cautious hydration and see if that improves her renal function. Plan Plan of Care Problems Medical Problems: (1) Acute renal failure Status: Acute (2) Adult failure to thrive Status: Acute (3) Anemia Status: Acute (4) Secondary spontaneous pneumothorax Status: Acute Comment Review of Relevant I have reviewed the following items rené (where applicable) has been applied. Labs Laboratory Tests Test 03/12/20 05:45 White Blood Count 7.9 x10^3/uL (4.0-11.0) Red Blood Count 2.40 x10^6/uL (3.50-5.70) Hemoglobin 7.3 g/dL (12.0-15.5) Hematocrit 22.1 % (36.0-47.0) Mean Corpuscular Volume 92 fL (79-100) Mean Corpuscular Hemoglobin 30 pg (25-35) Mean Corpuscular Hemoglobin Concent 33 g/dL (31-37) Red Cell Distribution Width 14.1 % (11.5-14.5) Platelet Count 221 x10^3/uL (140-400) Neutrophils (%) (Auto) 70 % (31-73) Lymphocytes (%) (Auto) 20 % (24-48) Monocytes (%) (Auto) 6 % (0-9) Eosinophils (%) (Auto) 4 % (0-3) Basophils (%) (Auto) 1 % (0-3) Neutrophils # (Auto) 5.5 x10^3/uL (1.8-7.7) Lymphocytes # (Auto) 1.6 x10^3/uL (1.0-4.8) Monocytes # (Auto) 0.4 x10^3/uL (0.0-1.1) Eosinophils # (Auto) 0.3 x10^3/uL (0.0-0.7) Basophils # (Auto) 0.0 x10^3/uL (0.0-0.2) Absolute Reticulocyte Count 0.023 x10^6/uL (0.020-0.120) Percent Reticulocyte Count 1.0 % (0.5-2.3) Immature Reticulocyte Fraction 0.34 (0.20-0.60) Sodium Level 143 mmol/L (136-145) Potassium Level 3.5 mmol/L (3.5-5.1) Chloride Level 115 mmol/L (98-107) Carbon Dioxide Level 15 mmol/L (21-32) Anion Gap 13 (6-14) Blood Urea Nitrogen 29 mg/dL (7-20) Creatinine 2.6 mg/dL (0.6-1.0) Estimated GFR (Cockcroft-Gault) 18.6 Glucose Level 73 mg/dL (70-99) Calcium Level 7.5 mg/dL (8.5-10.1) Iron Level 17 ug/dL (50-170) Total Iron Binding Capacity 166 ug/dL (250-450) Iron Saturation 10 % (15-34) Medications Current Medications Enoxaparin Sodium (Lovenox 30mg Syringe) 30 mg Q24H SQ Last administered on 03/11/20at 12:24; Start 03/11/20 at 12:00 Vitals/I & O Vital Sign - Last 24 Hours 03/11/20 03/11/20 03/11/20 03/11/20 11:00 15:00 19:50 20:10 Temp 97.7 97.9 98.7 97.7 97.9 98.7 Pulse 87 82 85 Resp 16 16 20 B/P (MAP) 134/65 (88) 111/55 (73) 167/75 (105) Pulse Ox 99 97 100 O2 Delivery Nasal Cannula Room Air Nasal Cannula Nasal Cannula O2 Flow Rate 2.0 2.0 2.0 2.0 03/11/20 03/12/20 03/12/20 03/12/20 23:05 01:22 02:22 03:30 Temp 98.5 98.1 98.5 98.1 Pulse 86 78 Resp 18 18 B/P (MAP) 156/74 (101) 135/70 (91) Pulse Ox 96 96 O2 Delivery Room Air Room Air Room Air Room Air Intake and Output 03/11/20 03/11/20 03/12/20 15:00 23:00 07:00 Intake Total 118 ml 400 ml 600 ml Output Total 1000 ml 1000 ml 1050 ml Balance -882 ml -600 ml -450 ml Justifications for Admission Other Justification SUZAN HEARD MD Mar 12, 2020 08:26
--- NOTE | 2020-03-12 10:13 | PDOC ---
DATE OF SERVICE DATE: 03/12/20 TIME: 10:12 SUBJECTIVE ROS Stable OBJECTIVE Vital Signs Vital Signs Date Time Temp Pulse Resp B/P (MAP) Pulse Ox O2 Delivery O2 Flow Rate FiO2 03/12/20 09:08 96 Room Air 03/12/20 07:00 98.3 75 18 146/78 (100) 98.3 03/11/20 20:10 2.0 I & 0 Intake and Output 03/12/20 07:00 Intake Total 1118 ml Output Total 3050 ml Balance -1932 ml Intake Oral 1118 ml Output Urine Total 2800 ml Chest Tube Drainage Total 180 ml Drainage Total 70 ml PHYSICAL EXAM Physical Exam GENERAL APPEARANCE: NAD HEENT: Bitemporal wasting. Eyes are sunken, sallow complexion. NECK: No increased JVD. No thyromegaly, mass or adenopathy. LUNGS: Clear. CARDIAC: Without S3 or rub. ABDOMEN: Scaphoid, nontender. EXTREMITIES: Diffuse muscle wasting. No edema. NEUROLOGIC: Nonfocal, nonlocalized. PSYCHIATRIC: Fair attention to detail, appropriate affect. DIAGNOSIS/ASSESSMENT Assessment & Plan SY - Vasomotor, improving Supportive care , I/O, avoid nephrotoxins CKD Abnormal renal function since 2016, No interval labs in [facility] records .Echogenic and small appearing bilateral kidneys probably medical renal disease. No history of diabetes mellitus or hypertension per her report and records. Cystic structures identified in the bilateral kidneys probably cysts. COPD improving with a right chest tube in place. COMMENT/RELEVANT DATA Meds Current Medications Medications (Trade) Dose Ordered Sig/Eliza Start Time Stop Time Status Last Admin Dose Admin Acetaminophen/ Hydrocodone Bitart (Lortab 5/325) 1 tab PRN Q6HRS PRN 03/09/20 20:15 03/12/20 09:08 1 TAB Albuterol/ Ipratropium (Duoneb) 9 ml 1X ONCE 03/09/20 13:30 03/09/20 13:31 DC 03/09/20 13:52 9 ML Amitriptyline HCl (Elavil) 50 mg QHS 03/09/20 21:00 03/11/20 22:18 50 MG Aspirin (Aspirin Chewable) 324 mg 1X ONCE 03/09/20 13:30 03/09/20 13:31 DC 03/09/20 13:59 324 MG Enoxaparin Sodium (Lovenox 30mg Syringe) 30 mg Q24H 03/11/20 12:00 03/11/20 12:24 30 MG Fentanyl Citrate (Fentanyl 2ml Vial) 50 mcg 1X ONCE 03/09/20 14:30 03/09/20 14:31 DC 03/09/20 14:41 50 MCG Influenza Virus Vaccine Quadrival (Fluzone Quad [id number] Syringe) 0.5 ml ONCE ONCE 03/10/20 09:00 03/10/20 09:01 DC 03/10/20 09:37 0.5 ML Levothyroxine Sodium (Synthroid) 88 mcg DAILY06 03/10/20 09:00 03/12/20 05:51 88 MCG Lidocaine HCl (Lidocaine 1% 20ml Vial) 40 ml 1X ONCE 03/09/20 14:30 03/09/20 14:31 DC 03/09/20 14:48 40 ML Lorazepam (Ativan Inj) 1 mg 1X ONCE 03/09/20 14:30 03/09/20 14:31 DC 03/09/20 14:40 1 MG Lorazepam (Ativan) 0.5 mg PRN TID PRN 03/09/20 20:15 03/11/20 19:15 0.5 MG Ondansetron HCl (Zofran) 4 mg PRN Q8HRS PRN 03/09/20 15:45 03/10/20 15:44 DC Prednisone (Prednisone) 60 mg 1X ONCE 03/09/20 13:30 03/09/20 13:31 DC 03/09/20 14:00 60 MG Sodium Chloride 1,000 ml @ 100 mls/hr Q10H 03/09/20 20:15 03/12/20 04:55 100 MLS/HR Lab Laboratory Tests Test 03/12/20 05:45 White Blood Count 7.9 x10^3/uL (4.0-11.0) Red Blood Count 2.40 x10^6/uL (3.50-5.70) Hemoglobin 7.3 g/dL (12.0-15.5) Hematocrit 22.1 % (36.0-47.0) Mean Corpuscular Volume 92 fL (79-100) Mean Corpuscular Hemoglobin 30 pg (25-35) Mean Corpuscular Hemoglobin Concent 33 g/dL (31-37) Red Cell Distribution Width 14.1 % (11.5-14.5) Platelet Count 221 x10^3/uL (140-400) Neutrophils (%) (Auto) 70 % (31-73) Lymphocytes (%) (Auto) 20 % (24-48) Monocytes (%) (Auto) 6 % (0-9) Eosinophils (%) (Auto) 4 % (0-3) Basophils (%) (Auto) 1 % (0-3) Neutrophils # (Auto) 5.5 x10^3/uL (1.8-7.7) Lymphocytes # (Auto) 1.6 x10^3/uL (1.0-4.8) Monocytes # (Auto) 0.4 x10^3/uL (0.0-1.1) Eosinophils # (Auto) 0.3 x10^3/uL (0.0-0.7) Basophils # (Auto) 0.0 x10^3/uL (0.0-0.2) Absolute Reticulocyte Count 0.023 x10^6/uL (0.020-0.120) Percent Reticulocyte Count 1.0 % (0.5-2.3) Immature Reticulocyte Fraction 0.34 (0.20-0.60) Sodium Level 143 mmol/L (136-145) Potassium Level 3.5 mmol/L (3.5-5.1) Chloride Level 115 mmol/L (98-107) Carbon Dioxide Level 15 mmol/L (21-32) Anion Gap 13 (6-14) Blood Urea Nitrogen 29 mg/dL (7-20) Creatinine 2.6 mg/dL (0.6-1.0) Estimated GFR (Cockcroft-Gault) 18.6 Glucose Level 73 mg/dL (70-99) Calcium Level 7.5 mg/dL (8.5-10.1) Iron Level 17 ug/dL (50-170) Total Iron Binding Capacity 166 ug/dL (250-450) Iron Saturation 10 % (15-34) Ferritin 38 ng/mL (8-252) Vitamin B12 Level 205 pg/mL (247-911) Results All relevant outside records, renal labs, imaging studies, telemetry/EKG's were reviewed. Justicifation of Admission Dx: Justifications for Admission: Justification of Admission Dx: Yes MARISELA PRIETO MD Mar 12, 2020 10:13
[2020-03-12] MEDS ORDERED: levOFLOXacin PER PHARMACY. MC PRN (10:15)
[2020-03-12 11:00] VITALS: BP 149/74
--- NOTE | 2020-03-12 11:14 | PDOC ---
PULMONARY PROGRESS NOTES DATE: 03/12/20 TIME: 11:04 Subjective no overnight concerns Now on room air no increased SOB, no cough chest tube still has air leak Vitals Vital Signs Date Time Temp Pulse Resp B/P (MAP) Pulse Ox O2 Delivery O2 Flow Rate FiO2 03/12/20 11:00 98.0 81 18 149/74 (99) 98 Room Air 98.0 03/11/20 20:10 2.0 ROS: No Nausea, No Chest Pain, No Abdominal Pain, No Increase Cough General: Alert, Oriented X4 Lungs: Clear Cardiovascular: S1, S2 Abdomen: Soft Neuro Exam: Alert Extremities: No Edema Skin: Warm, Dry Labs Laboratory Tests Test 03/11/20 04:00 03/12/20 05:45 White Blood Count 8.8 x10^3/uL (4.0-11.0) 7.9 x10^3/uL (4.0-11.0) Red Blood Count 2.31 x10^6/uL (3.50-5.40) 2.40 x10^6/uL (3.50-5.70) Hemoglobin 7.1 g/dL (12.0-15.5) 7.3 g/dL (12.0-15.5) Hematocrit 21.4 % (36.0-47.0) 22.1 % (36.0-47.0) Mean Corpuscular Volume 93 fL (79-100) 92 fL (79-100) Mean Corpuscular Hemoglobin 31 pg (25-35) 30 pg (25-35) Mean Corpuscular Hemoglobin Concent 33 g/dL (31-37) 33 g/dL (31-37) Red Cell Distribution Width 13.4 % (11.5-14.5) 14.1 % (11.5-14.5) Platelet Count 236 x10^3/uL (140-400) 221 x10^3/uL (140-400) Neutrophils (%) (Auto) 81 % (31-73) 70 % (31-73) Lymphocytes (%) (Auto) 12 % (24-48) 20 % (24-48) Monocytes (%) (Auto) 7 % (0-9) 6 % (0-9) Eosinophils (%) (Auto) 0 % (0-3) 4 % (0-3) Basophils (%) (Auto) 0 % (0-3) 1 % (0-3) Neutrophils # (Auto) 7.1 x10^3/uL (1.8-7.7) 5.5 x10^3/uL (1.8-7.7) Lymphocytes # (Auto) 1.0 x10^3/uL (1.0-4.8) 1.6 x10^3/uL (1.0-4.8) Monocytes # (Auto) 0.6 x10^3/uL (0.0-1.1) 0.4 x10^3/uL (0.0-1.1) Eosinophils # (Auto) 0.0 x10^3/uL (0.0-0.7) 0.3 x10^3/uL (0.0-0.7) Basophils # (Auto) 0.0 x10^3/uL (0.0-0.2) 0.0 x10^3/uL (0.0-0.2) Sodium Level 141 mmol/L (136-145) 143 mmol/L (136-145) Potassium Level 3.4 mmol/L (3.5-5.1) 3.5 mmol/L (3.5-5.1) Chloride Level 110 mmol/L (98-107) 115 mmol/L (98-107) Carbon Dioxide Level 19 mmol/L (21-32) 15 mmol/L (21-32) Anion Gap 12 (6-14) 13 (6-14) Blood Urea Nitrogen 38 mg/dL (7-20) 29 mg/dL (7-20) Creatinine 3.1 mg/dL (0.6-1.0) 2.6 mg/dL (0.6-1.0) Estimated GFR (Cockcroft-Gault) 15.2 18.6 BUN/Creatinine Ratio 12 (6-20) Glucose Level 69 mg/dL (70-99) 73 mg/dL (70-99) Calcium Level 7.9 mg/dL (8.5-10.1) 7.5 mg/dL (8.5-10.1) Total Bilirubin 0.2 mg/dL (0.2-1.0) Aspartate Amino Transf (AST/SGOT) 14 U/L (15-37) Alanine Aminotransferase (ALT/SGPT) 11 U/L (14-59) Alkaline Phosphatase 63 U/L (46-116) Total Protein 5.5 g/dL (6.4-8.2) Albumin 2.7 g/dL (3.4-5.0) Albumin/Globulin Ratio 1.0 (1.0-1.7) Absolute Reticulocyte Count 0.023 x10^6/uL (0.020-0.120) Percent Reticulocyte Count 1.0 % (0.5-2.3) Immature Reticulocyte Fraction 0.34 (0.20-0.60) Iron Level 17 ug/dL (50-170) Total Iron Binding Capacity 166 ug/dL (250-450) Iron Saturation 10 % (15-34) Ferritin 38 ng/mL (8-252) Vitamin B12 Level 205 pg/mL (247-911) Laboratory Tests Test 03/12/20 05:45 White Blood Count 7.9 x10^3/uL (4.0-11.0) Red Blood Count 2.40 x10^6/uL (3.50-5.70) Hemoglobin 7.3 g/dL (12.0-15.5) Hematocrit 22.1 % (36.0-47.0) Mean Corpuscular Volume 92 fL (79-100) Mean Corpuscular Hemoglobin 30 pg (25-35) Mean Corpuscular Hemoglobin Concent 33 g/dL (31-37) Red Cell Distribution Width 14.1 % (11.5-14.5) Platelet Count 221 x10^3/uL (140-400) Neutrophils (%) (Auto) 70 % (31-73) Lymphocytes (%) (Auto) 20 % (24-48) Monocytes (%) (Auto) 6 % (0-9) Eosinophils (%) (Auto) 4 % (0-3) Basophils (%) (Auto) 1 % (0-3) Neutrophils # (Auto) 5.5 x10^3/uL (1.8-7.7) Lymphocytes # (Auto) 1.6 x10^3/uL (1.0-4.8) Monocytes # (Auto) 0.4 x10^3/uL (0.0-1.1) Eosinophils # (Auto) 0.3 x10^3/uL (0.0-0.7) Basophils # (Auto) 0.0 x10^3/uL (0.0-0.2) Absolute Reticulocyte Count 0.023 x10^6/uL (0.020-0.120) Percent Reticulocyte Count 1.0 % (0.5-2.3) Immature Reticulocyte Fraction 0.34 (0.20-0.60) Sodium Level 143 mmol/L (136-145) Potassium Level 3.5 mmol/L (3.5-5.1) Chloride Level 115 mmol/L (98-107) Carbon Dioxide Level 15 mmol/L (21-32) Anion Gap 13 (6-14) Blood Urea Nitrogen 29 mg/dL (7-20) Creatinine 2.6 mg/dL (0.6-1.0) Estimated GFR (Cockcroft-Gault) 18.6 Glucose Level 73 mg/dL (70-99) Calcium Level 7.5 mg/dL (8.5-10.1) Iron Level 17 ug/dL (50-170) Total Iron Binding Capacity 166 ug/dL (250-450) Iron Saturation 10 % (15-34) Ferritin 38 ng/mL (8-252) Vitamin B12 Level 205 pg/mL (247-911) Medications Active Scripts Medications Dose Route/Sig Max Daily Dose Days Date Category Excedrin Migraine Caplet (Aspirin/Acetaminophen/Caffeine) 1 Each Tablet 1 Each PO PRN BID PRN 03/09/20 Reported Levothyroxine Sodium 88 Mcg Tablet 1 Tab PO DAILY 03/09/20 Reported Amitriptyline Hcl 50 Mg Tablet 1 Tab PO QHS 10/14/15 Reported Hydrocodone-Apap 5-325 (Hydrocodone Bit/Acetaminophen) 1 Each Tablet 1 Tab PO PRN Q12HRS PRN 10/14/15 Reported Lorazepam 0.5 Mg Tablet 0.5 Mg PO TID PRN 10/13/15 Reported Comments CXR IMPRESSION: COPD with improving aeration in the right lung with a right chest tube in place. No definite residual pneumothorax or pleural effusion seen. Impression . IMPRESSION: 1. Nontraumatic spontaneous right-sided pneumothorax. This is the first time she had the pneumothorax, likely related to chronic obstructive pulmonary disease. 2. Interstitial infiltrates, more on the right than on the left. Could be related to mild re-expansion interstitial edema. She is getting IV fluids for her acute kidney injury versus chronic kidney disease. Need to closely watch. At this point, her saturations are stable on 2 liters. 3. Underlying chronic obstructive pulmonary disease. 4. SY--- ongoing Plan . RECOMMENDATIONS: Continue supplemental oxygen to keep sats above 92%--- now on room air Continue chest tube to suction. She still has an air leak. Follow daily chest x-rays--- CXR- improved infiltrates Cont. levaquin for ABX Hold of on lasix 2/2 renal function Follow Renal recommendations DVT/GI PPX D/W RN and PT. DNR GAVIN MATHIAS MD Mar 12, 2020 11:14
[2020-03-12] MEDS: ENOXAPARIN 30 MG/0.3 ML SYRINGE. SQ SCH (12:27)
[2020-03-12] MEDS: LORazepam 0.5 MG TABLET PO PRN (13:43)
--- NOTE | 2020-03-12 14:01 | NUR ---
SS following for discharge planning. SS reviewed pt chart and discussed with pt RN. Pt is from home and is currently on room air. Pt has chest tube and is on IV Levaquin. SS will continue to follow for discharge planning.
[2020-03-12 15:00] VITALS: BP 177/85
--- NOTE | 2020-03-12 15:41 | RAD ---
EXAM: CHEST 1 VIEW History: Pneumothorax COMPARISON: 03/11/2020 TECHNIQUE: Single portable radiograph of the chest Findings/ impression: The cardiac silhouette is unremarkable. Trace left pleural effusion. Patchy airspace opacities identified in the right lower lobe lung slightly improved since prior exam likely pneumonia or atelectasis. Right chest tube is unchanged. Small right pneumothorax similar to prior exam. Electronically signed by: Jean Carlos Blanc MD (03/12/2020 3:38 PM) [id number]
[2020-03-12 16:14] LABS: BILIRUBIN,URINE NEGATIVE (NEG); CLARITY,URINE CLEAR; COLOR,URINE YELLOW; NITRITE,URINE NEGATIVE (NEG); PH,URINE 5.5 (<5.0-8.0); PROTEIN,URINE NEGATIVE (NEG-TRACE); UROBILINOGEN,URINE 0.2 mg/dL (0.2 mg/dL)
[2020-03-12] MEDS: ONDANSETRON ODT 4 MG TAB.RAPDIS. PO PRN (16:14)
[2020-03-12 16:24] LABS: BACTERIA,URINE FEW /HPF (0-FEW); SQUAMOUS EPITHELIAL CELL,UR OCC /LPF
[2020-03-12 19:35] VITALS: BP 147/72
--- NOTE | 2020-03-12 21:10 | PDOC2 ---
CONSULT Date of Consult Date of Consult DATE: 03/12/20 TIME: 20:43 Reason for Consult Reason for Consult: Anemia Referring Physician Referring Physician: Dr Reyez Identification/Chief Complaint Chief Complaint Pneumothorax Source Source: Chart review, Patient History of Present Illness Reason for Visit: Sarah Grace is a 64 year old female who has been admitted for further management of a spontaneous pneumothorax. She initially presented to the hospital reporting chest pain and tightness for the past 2 weeks. She reported associated dyspnea. She was seen in the Emergency Room and she was found to have a large pneumothorax. She underwent placement of a chest tube. She has had long standing anemia. She also has chronic kidney disease that has progressed over time and initiation of HD is being considered. Hematology consultation has been sought for recommendations for managing her anemia Past Medical History Cardiovascular: CHF Pulmonary: Bronchitis, COPD, Pneumonia CENTRAL NERVOUS SYSTEM: Dementia, Migraine GI: No pertinent hx Heme/Onc: Anemia NOS Hepatobiliary: No pertinent hx Psych: Schizophrenia Musculoskeletal: Muscle atrophy Rheumatologic: No pertinent hx Infectious disease: No pertinent hx Renal/: No pertinent hx Endocrine: No pertinent hx Past Surgical History Past Surgical History: No pertinent history Family History Family History: Coronary Artery Disease Social History ALCOHOL: none Drugs: None Lives: with Family Current Problem List Problem List Problems Medical Problems: (1) Acute renal failure Status: Acute (2) Adult failure to thrive Status: Acute (3) Anemia Status: Acute (4) Secondary spontaneous pneumothorax Status: Acute Current Medications Current Medications Current Medications Sodium Chloride 1,000 ml @ 1,000 mls/hr 1X ONCE IV Last administered on 03/09/20at 14:00; Start 03/09/20 at 13:30; Stop 03/09/20 at 14:29; Status DC Aspirin (Aspirin Chewable) 324 mg 1X ONCE PO Last administered on 03/09/20at 13:59; Start 03/09/20 at 13:30; Stop 03/09/20 at 13:31; Status DC Albuterol/ Ipratropium (Duoneb) 9 ml 1X ONCE NEB Last administered on 03/09/20at 13:52; Start 03/09/20 at 13:30; Stop 03/09/20 at 13:31; Status DC Prednisone (Prednisone) 60 mg 1X ONCE PO Last administered on 03/09/20at 14:00; Start 03/09/20 at 13:30; Stop 03/09/20 at 13:31; Status DC Sodium Chloride 1,000 ml @ 1,000 mls/hr 1X ONCE IV Last administered on 03/09/20at 16:27; Start 03/09/20 at 14:30; Stop 03/09/20 at 15:29; Status DC Lidocaine HCl (Lidocaine 1% 20ml Vial) 20 ml STK-MED ONCE .ROUTE ; Start 03/09/20 at 14:26; Stop 03/09/20 at 14:27; Status DC Lidocaine HCl (Lidocaine 1% 20ml Vial) 40 ml 1X ONCE INJ Last administered on 03/09/20at 14:48; Start 03/09/20 at 14:30; Stop 03/09/20 at 14:31; Status DC Lorazepam (Ativan Inj) 1 mg 1X ONCE IVP Last administered on 03/09/20at 14:40; Start 03/09/20 at 14:30; Stop 03/09/20 at 14:31; Status DC Fentanyl Citrate (Fentanyl 2ml Vial) 50 mcg 1X ONCE IVP Last administered on 03/09/20at 14:41; Start 03/09/20 at 14:30; Stop 03/09/20 at 14:31; Status DC Ondansetron HCl (Zofran) 4 mg PRN Q8HRS PRN IV NAUSEA/VOMITING; Start 03/09/20 at 15:45; Stop 03/10/20 at 15:44; Status DC Acetaminophen/ Hydrocodone Bitart (Lortab 5/325) 1 tab PRN Q6HRS PRN PO PAIN Last administered on 03/12/20 16:14; Start 03/09/20 at 20:15 Levothyroxine Sodium (Synthroid) 88 mcg DAILY06 PO Last administered on 03/12/20 05:51; Start 03/10/20 at 09:00 Lorazepam (Ativan) 0.5 mg PRN TID PRN PO ANXIETY / AGITATION Last administered on 03/12/20 13:43; Start 03/09/20 at 20:15 Amitriptyline HCl (Elavil) 50 mg QHS PO Last administered on 03/11/20at 22:18; Start 03/09/20 at 21:00 Sodium Chloride 1,000 ml @ 100 mls/hr Q10H IV Last administered on 9/21/20at 16:14; Start 03/09/20 at 20:15 Influenza Virus Vaccine Quadrival (Fluzone Quad Syringe) 0.5 ml ONCE ONCE VAX IM Last administered on 03/10/20at 09:37; Start 03/10/20 at 09:00; Stop 03/10/20 at 09:01; Status DC Enoxaparin Sodium (Lovenox 30mg Syringe) 30 mg Q24H SQ Last administered on 03/12/20at 12:27; Start 03/11/20 at 12:00 Levofloxacin/ Dextrose (Levaquin Per Pharmacy) 1 each PRN DAILY PRN MC SEE COMMENTS; Start 03/12/20 at 10:15 Levofloxacin/ Dextrose 100 ml @ 100 mls/hr Q48H IV Last administered on 03/12/20at 11:02; Start 03/12/20 at 11:00 Cyanocobalamin (Vitamin B-12) 1,000 mcg DAILY IM ; Start 03/13/20 at 09:00 Lactobacillus Rhamnosus (Culturelle) 1 cap BID PO ; Start 03/12/20 at 21:00 Ondansetron HCl (Zofran Odt) 4 mg PRN Q6HRS PRN PO NAUSEA/VOMITING Last administered on 03/12/20at 16:14; Start 03/12/20 at 14:15 Active Scripts Active Reported Excedrin Migraine Caplet (Aspirin/Acetaminophen/Caffeine) 1 Each Tablet 1 Each PO PRN BID PRN Levothyroxine Sodium 88 Mcg Tablet 1 Tab PO DAILY Amitriptyline Hcl 50 Mg Tablet 1 Tab PO QHS Hydrocodone-Apap 5-325 (Hydrocodone Bit/Acetaminophen) 1 Each Tablet 1 Tab PO PRN Q12HRS PRN Lorazepam 0.5 Mg Tablet 0.5 Mg PO TID PRN Allergies Allergies: Coded Allergies: Penicillins (Verified Allergy, Intermediate, 10/18/15) ROS General: No: Chills, Night Sweats PSYCHOLOGICAL ROS: No: Anxiety, Behavioral Disorder Eyes: No Blurry vision, No Decreased vision HEENT: No: Heacaches, Visual Changes ALLERGY AND IMMUNOLOGY: No: Nasal Congestion, Post Nasal Drip Hematological and Lymphatic: No: Brusing, Night Sweats ENDOCRINE: YES: Malaise/lethargy; No: Mood Swings Respiratory: YES: Cough, Pleuritic Pain, Shortness of breath; No: Hemoptysis, Sputum Changes Cardiovascular: yes Chest Pain; No Palpitations, No Edema Gastrointestinal: No Nausea, No Vomiting Genitourinary: No Dysuria, No Flank Pain Musculoskeletal: No Gait Disturbance, No Joint Pain Neurological: No Behavorial Changes Skin: No Dry Skin, No Rash Physical Exam General: Alert, Oriented X3 HEENT: Atraumatic Lungs: Clear to auscultation Heart: Regular rate Abdomen: Normal bowel sounds, Soft Extremities: No clubbing Skin: No rashes Neuro: Normal speech Psych/Mental Status: Mental status NL MUSCULOSKELETAL: No joint tenderness Vitals VITALS Vital Signs Date Time Temp Pulse Resp B/P (MAP) Pulse Ox O2 Delivery O2 Flow Rate FiO2 03/12/20 19:35 98.5 80 18 147/72 (97) 98 Room Air 98.5 03/11/20 20:10 2.0 Labs Labs Laboratory Tests Test 03/11/20 04:00 03/12/20 05:45 03/12/20 16:04 White Blood Count 8.8 x10^3/uL (4.0-11.0) 7.9 x10^3/uL (4.0-11.0) Red Blood Count 2.31 x10^6/uL (3.50-5.40) 2.40 x10^6/uL (3.50-5.70) Hemoglobin 7.1 g/dL (12.0-15.5) 7.3 g/dL (12.0-15.5) Hematocrit 21.4 % (36.0-47.0) 22.1 % (36.0-47.0) Mean Corpuscular Volume 93 fL (79-100) 92 fL (79-100) Mean Corpuscular Hemoglobin 31 pg (25-35) 30 pg (25-35) Mean Corpuscular Hemoglobin Concent 33 g/dL (31-37) 33 g/dL (31-37) Red Cell Distribution Width 13.4 % (11.5-14.5) 14.1 % (11.5-14.5) Platelet Count 236 x10^3/uL (140-400) 221 x10^3/uL (140-400) Neutrophils (%) (Auto) 81 % (31-73) 70 % (31-73) Lymphocytes (%) (Auto) 12 % (24-48) 20 % (24-48) Monocytes (%) (Auto) 7 % (0-9) 6 % (0-9) Eosinophils (%) (Auto) 0 % (0-3) 4 % (0-3) Basophils (%) (Auto) 0 % (0-3) 1 % (0-3) Neutrophils # (Auto) 7.1 x10^3/uL (1.8-7.7) 5.5 x10^3/uL (1.8-7.7) Lymphocytes # (Auto) 1.0 x10^3/uL (1.0-4.8) 1.6 x10^3/uL (1.0-4.8) Monocytes # (Auto) 0.6 x10^3/uL (0.0-1.1) 0.4 x10^3/uL (0.0-1.1) Eosinophils # (Auto) 0.0 x10^3/uL (0.0-0.7) 0.3 x10^3/uL (0.0-0.7) Basophils # (Auto) 0.0 x10^3/uL (0.0-0.2) 0.0 x10^3/uL (0.0-0.2) Sodium Level 141 mmol/L (136-145) 143 mmol/L (136-145) Potassium Level 3.4 mmol/L (3.5-5.1) 3.5 mmol/L (3.5-5.1) Chloride Level 110 mmol/L (98-107) 115 mmol/L (98-107) Carbon Dioxide Level 19 mmol/L (21-32) 15 mmol/L (21-32) Anion Gap 12 (6-14) 13 (6-14) Blood Urea Nitrogen 38 mg/dL (7-20) 29 mg/dL (7-20) Creatinine 3.1 mg/dL (0.6-1.0) 2.6 mg/dL (0.6-1.0) Estimated GFR (Cockcroft-Gault) 15.2 18.6 BUN/Creatinine Ratio 12 (6-20) Glucose Level 69 mg/dL (70-99) 73 mg/dL (70-99) Calcium Level 7.9 mg/dL (8.5-10.1) 7.5 mg/dL (8.5-10.1) Total Bilirubin 0.2 mg/dL (0.2-1.0) Aspartate Amino Transf (AST/SGOT) 14 U/L (15-37) Alanine Aminotransferase (ALT/SGPT) 11 U/L (14-59) Alkaline Phosphatase 63 U/L (46-116) Total Protein 5.5 g/dL (6.4-8.2) Albumin 2.7 g/dL (3.4-5.0) Albumin/Globulin Ratio 1.0 (1.0-1.7) Absolute Reticulocyte Count 0.023 x10^6/uL (0.020-0.120) Percent Reticulocyte Count 1.0 % (0.5-2.3) Immature Reticulocyte Fraction 0.34 (0.20-0.60) Iron Level 17 ug/dL (50-170) Total Iron Binding Capacity 166 ug/dL (250-450) Iron Saturation 10 % (15-34) Ferritin 38 ng/mL (8-252) Vitamin B12 Level 205 pg/mL (247-911) Urine Collection Type Unknown Urine Color Yellow Urine Clarity Clear Urine pH 5.5 (<5.0-8.0) Urine Specific [place] <=1.005 (1.000-1.030) Urine Protein Negative mg/dL (NEG-TRACE) Urine Glucose (UA) Negative mg/dL (NEG) Urine Ketones (Stick) Negative mg/dL (NEG) Urine Blood Negative (NEG) Urine Nitrite Negative (NEG) Urine Bilirubin Negative (NEG) Urine Urobilinogen Dipstick 0.2 mg/dL (0.2 mg/dL) Urine Leukocyte Esterase Negative (NEG) Urine RBC 1-2 /HPF (0-2) Urine WBC 1-4 /HPF (0-4) Urine Squamous Epithelial Cells Occ /LPF Urine Bacteria Few /HPF (0-FEW) Laboratory Tests Test 03/12/20 05:45 03/12/20 16:04 White Blood Count 7.9 x10^3/uL (4.0-11.0) Red Blood Count 2.40 x10^6/uL (3.50-5.70) Hemoglobin 7.3 g/dL (12.0-15.5) Hematocrit 22.1 % (36.0-47.0) Mean Corpuscular Volume 92 fL (79-100) Mean Corpuscular Hemoglobin 30 pg (25-35) Mean Corpuscular Hemoglobin Concent 33 g/dL (31-37) Red Cell Distribution Width 14.1 % (11.5-14.5) Platelet Count 221 x10^3/uL (140-400) Neutrophils (%) (Auto) 70 % (31-73) Lymphocytes (%) (Auto) 20 % (24-48) Monocytes (%) (Auto) 6 % (0-9) Eosinophils (%) (Auto) 4 % (0-3) Basophils (%) (Auto) 1 % (0-3) Neutrophils # (Auto) 5.5 x10^3/uL (1.8-7.7) Lymphocytes # (Auto) 1.6 x10^3/uL (1.0-4.8) Monocytes # (Auto) 0.4 x10^3/uL (0.0-1.1) Eosinophils # (Auto) 0.3 x10^3/uL (0.0-0.7) Basophils # (Auto) 0.0 x10^3/uL (0.0-0.2) Absolute Reticulocyte Count 0.023 x10^6/uL (0.020-0.120) Percent Reticulocyte Count 1.0 % (0.5-2.3) Immature Reticulocyte Fraction 0.34 (0.20-0.60) Sodium Level 143 mmol/L (136-145) Potassium Level 3.5 mmol/L (3.5-5.1) Chloride Level 115 mmol/L (98-107) Carbon Dioxide Level 15 mmol/L (21-32) Anion Gap 13 (6-14) Blood Urea Nitrogen 29 mg/dL (7-20) Creatinine 2.6 mg/dL (0.6-1.0) Estimated GFR (Cockcroft-Gault) 18.6 Glucose Level 73 mg/dL (70-99) Calcium Level 7.5 mg/dL (8.5-10.1) Iron Level 17 ug/dL (50-170) Total Iron Binding Capacity 166 ug/dL (250-450) Iron Saturation 10 % (15-34) Ferritin 38 ng/mL (8-252) Vitamin B12 Level 205 pg/mL (247-911) Urine Collection Type Unknown Urine Color Yellow Urine Clarity Clear Urine pH 5.5 (<5.0-8.0) Urine Specific [place] <=1.005 (1.000-1.030) Urine Protein Negative mg/dL (NEG-TRACE) Urine Glucose (UA) Negative mg/dL (NEG) Urine Ketones (Stick) Negative mg/dL (NEG) Urine Blood Negative (NEG) Urine Nitrite Negative (NEG) Urine Bilirubin Negative (NEG) Urine Urobilinogen Dipstick 0.2 mg/dL (0.2 mg/dL) Urine Leukocyte Esterase Negative (NEG) Urine RBC 1-2 /HPF (0-2) Urine WBC 1-4 /HPF (0-4) Urine Squamous Epithelial Cells Occ /LPF Urine Bacteria Few /HPF (0-FEW) Assessment/Plan Assessment/Plan Assessment: Normocytic anemia B12 deficiency Chronic kidney disease, stage IV COPD Spontaneous PTX, improving Recommendations: -I recommended iron studies, B12. B12 level was low. I discussed this with the patient and recommended B12 supplementation. Start B12 1000 mcg daily and add PO multivitamin at discharge. -Given CKD of unclear etiology, will check SPEP and free K/L chains -Check Epo level -Consider RAUDEL if anemia does not improve with replacement of B12. Can arrange follow-up in my office to discuss this further. -Management of CKD per nephrology -Rest per Dr Reyez Please call me at [phone] with any questions. GENARO CHACKO MD Mar 12, 2020 21:10
[2020-03-12] MEDS: LACTOBACILLUS RHAMNOSUS GG 1 CAPSULE. PO SCH (21:56)
[2020-03-12] MEDS: AMITRIPTYLINE HCL 25 MG TABLET. PO SCH (21:56)
[2020-03-12 22:07] VITALS: BP 166/84
[2020-03-13 01:08] LABS: UR PROTEIN 4.7 mg/dL (Not Estab.)
[2020-03-13 02:27] VITALS: BP 155/79
[2020-03-13] MEDS: LEVOTHYROXINE 88 MCG TABLET PO SCH (05:25)
[2020-03-13] MEDS: HYDROcodone/APAP 5/325MG 1 TAB TABLET PO PRN ×3 (05:25→22:39)
[2020-03-13 07:00] VITALS: BP 142/74
[2020-03-13 07:30] LABS: BASO % 1 % (0-3); EOS # 0.6 x10^3/uL (0.0-0.7); EOS % 9 % (0-3); HEMATOCRIT 21.3 % (36.0-47.0); HEMOGLOBIN 7.1 g/dL (12.0-15.5); LYMPH # 1.2 x10^3/uL (1.0-4.8); LYMPH % 19 % (24-48); MEAN CORPUSCULAR HEMOGLOBIN 30 pg (25-35); MEAN CORPUSCULAR HGB CONC 33 g/dL (31-37); MEAN CORPUSCULAR VOLUME 91 fL (79-100); MONO # 0.5 x10^3/uL (0.0-1.1); MONO % 8 % (0-9); NEUT % 64 % (31-73); PLATELET COUNT 207 x10^3/uL (140-400); RED CELL DISTRIBUTION WIDTH 13.9 % (11.5-14.5); WHITE BLOOD COUNT 6.3 x10^3/uL (4.0-11.0)
[2020-03-13 07:36] LABS: RED BLOOD COUNT 2.31 x10^6/uL (3.50-5.40)
[2020-03-13 07:52] LABS: CALCIUM 7.6 mg/dL (8.5-10.1); CREATININE 2.5 mg/dL (0.6-1.0); GFR 19.5; POTASSIUM 3.4 mmol/L (3.5-5.1)
[2020-03-13] MEDS ORDERED: POTASSIUM CHLORIDE 20 MEQ TABLET.ER. PO ONE (08:45)
--- NOTE | 2020-03-13 08:46 | PDOC ---
PROGRESS NOTES Date of Service: DATE: 03/13/20 TIME: 08:46 Subjective Subjective want chest tube out Objective Objective Vital Signs Date Time Temp Pulse Resp B/P (MAP) Pulse Ox O2 Delivery O2 Flow Rate FiO2 03/13/20 07:00 98.8 79 16 142/74 (96) 96 Room Air 98.8 Intake and Output 03/13/20 07:00 Intake Total 920 ml Output Total 2865 ml Balance -1945 ml Intake Oral 920 ml Output Urine Total 2750 ml Chest Tube Drainage Total 115 ml Physical Exam Abdomen: Normal bowel sounds, Soft Heart: Regular rate Extremities: No clubbing General: Alert, Oriented X3 HEENT: Atraumatic Lungs: Clear to auscultation MUSCULOSKELETAL: No joint tenderness Neck: Supple Neuro: Normal speech Psych/Mental Status: Mental status NL Skin: No rashes COMMENT Rt chest tube Diagnosis Problem List Problems Medical Problems: (1) Acute renal failure Status: Acute (2) Adult failure to thrive Status: Acute (3) Anemia Status: Acute (4) Secondary spontaneous pneumothorax Status: Acute Assessment Assessment Problems Medical Problems: (1) Acute renal failure Status: Acute (2) Adult failure to thrive Status: Acute (3) Anemia Status: Acute (4) Secondary spontaneous pneumothorax Status: Acute FINAL IMPRESSION: 1. Spontaneous right Pneumothorax. 2. Chronic obstructive pulmonary disease with emphysema. 3. Chronic kidney disease, creatinine of 3. 4. Hypothyroidism. 5. Anxiety with depression. PLAN: d/c iv fluids cxr pending chest tube placed in ER at admission water seal cxr improvement cr 2.5 improving.24 urine test sono kidneys, shows ch kidney diasese. dvt prevention. xanax+lortab. ? remove chest tube today At this time, the patient was admitted to the hospital, had a chest tube placed in the Emergency Room with water seal. Patient was admitted to the second floor. Pulmonary is consulted and the patient also has kidney failure with creatinine of 3.5 and 1.5 two years ago. We will do ultrasound of the kidneys, renal consult, cautious hydration and see if that improves her renal function. Plan Plan of Care Problems Medical Problems: (1) Acute renal failure Status: Acute (2) Adult failure to thrive Status: Acute (3) Anemia Status: Acute (4) Secondary spontaneous pneumothorax Status: Acute Comment Review of Relevant I have reviewed the following items rené (where applicable) has been applied. Labs Laboratory Tests Test 03/12/20 16:04 03/13/20 06:20 03/13/20 06:25 Urine Collection Type Unknown Urine Color Yellow Urine Clarity Clear Urine pH 5.5 (<5.0-8.0) Urine Specific [place] <=1.005 (1.000-1.030) Urine Protein Negative mg/dL (NEG-TRACE) Urine Glucose (UA) Negative mg/dL (NEG) Urine Ketones (Stick) Negative mg/dL (NEG) Urine Blood Negative (NEG) Urine Nitrite Negative (NEG) Urine Bilirubin Negative (NEG) Urine Urobilinogen Dipstick 0.2 mg/dL (0.2 mg/dL) Urine Leukocyte Esterase Negative (NEG) Urine RBC 1-2 /HPF (0-2) Urine WBC 1-4 /HPF (0-4) Urine Squamous Epithelial Cells Occ /LPF Urine Bacteria Few /HPF (0-FEW) Sodium Level 142 mmol/L (136-145) Potassium Level 3.4 mmol/L (3.5-5.1) Chloride Level 113 mmol/L (98-107) Carbon Dioxide Level 18 mmol/L (21-32) Anion Gap 11 (6-14) Blood Urea Nitrogen 24 mg/dL (7-20) Creatinine 2.5 mg/dL (0.6-1.0) Estimated GFR (Cockcroft-Gault) 19.5 Glucose Level 78 mg/dL (70-99) Calcium Level 7.6 mg/dL (8.5-10.1) White Blood Count 6.3 x10^3/uL (4.0-11.0) Red Blood Count 2.31 x10^6/uL (3.50-5.70) Hemoglobin 7.1 g/dL (12.0-15.5) Hematocrit 21.3 % (36.0-47.0) Mean Corpuscular Volume 91 fL (79-100) Mean Corpuscular Hemoglobin 30 pg (25-35) Mean Corpuscular Hemoglobin Concent 33 g/dL (31-37) Red Cell Distribution Width 13.9 % (11.5-14.5) Platelet Count 207 x10^3/uL (140-400) Neutrophils (%) (Auto) 64 % (31-73) Lymphocytes (%) (Auto) 19 % (24-48) Monocytes (%) (Auto) 8 % (0-9) Eosinophils (%) (Auto) 9 % (0-3) Basophils (%) (Auto) 1 % (0-3) Neutrophils # (Auto) 4.0 x10^3/uL (1.8-7.7) Lymphocytes # (Auto) 1.2 x10^3/uL (1.0-4.8) Monocytes # (Auto) 0.5 x10^3/uL (0.0-1.1) Eosinophils # (Auto) 0.6 x10^3/uL (0.0-0.7) Basophils # (Auto) 0.0 x10^3/uL (0.0-0.2) Absolute Reticulocyte Count 0.019 x10^6/uL (0.020-0.120) Percent Reticulocyte Count 0.8 % (0.5-2.3) Immature Reticulocyte Fraction 0.22 (0.20-0.60) Medications Current Medications Cyanocobalamin (Vitamin B-12) 1,000 mcg DAILY IM ; Start 03/13/20 at 09:00 Lactobacillus Rhamnosus (Culturelle) 1 cap BID PO Last administered on 03/12/20at 21:56; Start 03/12/20 at 21:00 Levofloxacin/ Dextrose 100 ml @ 100 mls/hr Q48H IV Last administered on 03/12/20at 11:02; Start 03/12/20 at 11:00 Levofloxacin/ Dextrose (Levaquin Per Pharmacy) 1 each PRN DAILY PRN MC SEE COMMENTS; Start 03/12/20 at 10:15 Ondansetron HCl (Zofran Odt) 4 mg PRN Q6HRS PRN PO NAUSEA/VOMITING Last administered on 03/12/20at 16:14; Start 03/12/20 at 14:15 Vitals/I & O Vital Sign - Last 24 Hours 03/12/20 03/12/20 03/12/20 03/12/20 09:08 10:08 11:00 15:00 Temp 98.0 98.4 98.0 98.4 Pulse 81 85 Resp 18 18 B/P (MAP) 149/74 (99) 177/85 (115) Pulse Ox 96 96 98 97 O2 Delivery Room Air Room Air Room Air Room Air 03/12/20 03/12/20 03/12/20 03/12/20 16:14 19:35 20:26 22:03 Temp 98.5 98.5 Pulse 80 Resp 18 B/P (MAP) 147/72 (97) Pulse Ox 98 98 O2 Delivery Room Air Room Air Room Air Room Air 03/12/20 03/13/20 03/13/20 03/13/20 22:07 02:27 05:25 07:00 Temp 97.8 98.0 98.8 97.8 98.0 98.8 Pulse 85 93 79 Resp 18 20 16 B/P (MAP) 166/84 (111) 155/79 (104) 142/74 (96) Pulse Ox 97 97 96 O2 Delivery Room Air Room Air Room Air Room Air Intake and Output 03/12/20 03/12/20 03/13/20 15:00 23:00 07:00 Intake Total 500 ml 120 ml 300 ml Output Total 1150 ml 840 ml 875 ml Balance -650 ml -720 ml -575 ml Justifications for Admission Other Justification SUZAN HEARD MD Mar 13, 2020 08:46
--- NOTE | 2020-03-13 08:50 | PDOC ---
PULMONARY PROGRESS NOTES DATE: 03/13/20 TIME: 08:50 Subjective Patient with no increasing shortness of breath no chest pain no pressure Vitals Vital Signs Date Time Temp Pulse Resp B/P (MAP) Pulse Ox O2 Delivery O2 Flow Rate FiO2 03/13/20 07:00 98.8 79 16 142/74 (96) 96 Room Air 98.8 ROS: No Nausea, No Chest Pain, No Abdominal Pain, No Increase Cough General: Alert, Oriented X4 Lungs: Clear Cardiovascular: S1, S2 Abdomen: Soft Neuro Exam: Alert Extremities: No Edema Skin: Warm, Dry Labs Laboratory Tests Test 03/11/20 19:00 03/12/20 05:45 03/12/20 16:04 03/13/20 06:20 Urine Protein 4.7 mg/dL (Not Estab.) Negative mg/dL (NEG-TRACE) Urine Protein 24 Hr Calculated 113 mg/24 hr (30-150) White Blood Count 7.9 x10^3/uL (4.0-11.0) Red Blood Count 2.40 x10^6/uL (3.50-5.70) Hemoglobin 7.3 g/dL (12.0-15.5) Hematocrit 22.1 % (36.0-47.0) Mean Corpuscular Volume 92 fL (79-100) Mean Corpuscular Hemoglobin 30 pg (25-35) Mean Corpuscular Hemoglobin Concent 33 g/dL (31-37) Red Cell Distribution Width 14.1 % (11.5-14.5) Platelet Count 221 x10^3/uL (140-400) Neutrophils (%) (Auto) 70 % (31-73) Lymphocytes (%) (Auto) 20 % (24-48) Monocytes (%) (Auto) 6 % (0-9) Eosinophils (%) (Auto) 4 % (0-3) Basophils (%) (Auto) 1 % (0-3) Neutrophils # (Auto) 5.5 x10^3/uL (1.8-7.7) Lymphocytes # (Auto) 1.6 x10^3/uL (1.0-4.8) Monocytes # (Auto) 0.4 x10^3/uL (0.0-1.1) Eosinophils # (Auto) 0.3 x10^3/uL (0.0-0.7) Basophils # (Auto) 0.0 x10^3/uL (0.0-0.2) Absolute Reticulocyte Count 0.023 x10^6/uL (0.020-0.120) Percent Reticulocyte Count 1.0 % (0.5-2.3) Immature Reticulocyte Fraction 0.34 (0.20-0.60) Sodium Level 143 mmol/L (136-145) 142 mmol/L (136-145) Potassium Level 3.5 mmol/L (3.5-5.1) 3.4 mmol/L (3.5-5.1) Chloride Level 115 mmol/L (98-107) 113 mmol/L (98-107) Carbon Dioxide Level 15 mmol/L (21-32) 18 mmol/L (21-32) Anion Gap 13 (6-14) 11 (6-14) Blood Urea Nitrogen 29 mg/dL (7-20) 24 mg/dL (7-20) Creatinine 2.6 mg/dL (0.6-1.0) 2.5 mg/dL (0.6-1.0) Estimated GFR (Cockcroft-Gault) 18.6 19.5 Glucose Level 73 mg/dL (70-99) 78 mg/dL (70-99) Calcium Level 7.5 mg/dL (8.5-10.1) 7.6 mg/dL (8.5-10.1) Iron Level 17 ug/dL (50-170) Total Iron Binding Capacity 166 ug/dL (250-450) Iron Saturation 10 % (15-34) Ferritin 38 ng/mL (8-252) Vitamin B12 Level 205 pg/mL (247-911) Urine Collection Type Unknown Urine Color Yellow Urine Clarity Clear Urine pH 5.5 (<5.0-8.0) Urine Specific [place] <=1.005 (1.000-1.030) Urine Glucose (UA) Negative mg/dL (NEG) Urine Ketones (Stick) Negative mg/dL (NEG) Urine Blood Negative (NEG) Urine Nitrite Negative (NEG) Urine Bilirubin Negative (NEG) Urine Urobilinogen Dipstick 0.2 mg/dL (0.2 mg/dL) Urine Leukocyte Esterase Negative (NEG) Urine RBC 1-2 /HPF (0-2) Urine WBC 1-4 /HPF (0-4) Urine Squamous Epithelial Cells Occ /LPF Urine Bacteria Few /HPF (0-FEW) Test 03/13/20 06:25 White Blood Count 6.3 x10^3/uL (4.0-11.0) Red Blood Count 2.31 x10^6/uL (3.50-5.70) Hemoglobin 7.1 g/dL (12.0-15.5) Hematocrit 21.3 % (36.0-47.0) Mean Corpuscular Volume 91 fL (79-100) Mean Corpuscular Hemoglobin 30 pg (25-35) Mean Corpuscular Hemoglobin Concent 33 g/dL (31-37) Red Cell Distribution Width 13.9 % (11.5-14.5) Platelet Count 207 x10^3/uL (140-400) Neutrophils (%) (Auto) 64 % (31-73) Lymphocytes (%) (Auto) 19 % (24-48) Monocytes (%) (Auto) 8 % (0-9) Eosinophils (%) (Auto) 9 % (0-3) Basophils (%) (Auto) 1 % (0-3) Neutrophils # (Auto) 4.0 x10^3/uL (1.8-7.7) Lymphocytes # (Auto) 1.2 x10^3/uL (1.0-4.8) Monocytes # (Auto) 0.5 x10^3/uL (0.0-1.1) Eosinophils # (Auto) 0.6 x10^3/uL (0.0-0.7) Basophils # (Auto) 0.0 x10^3/uL (0.0-0.2) Absolute Reticulocyte Count 0.019 x10^6/uL (0.020-0.120) Percent Reticulocyte Count 0.8 % (0.5-2.3) Immature Reticulocyte Fraction 0.22 (0.20-0.60) Laboratory Tests Test 03/12/20 16:04 03/13/20 06:20 03/13/20 06:25 Urine Collection Type Unknown Urine Color Yellow Urine Clarity Clear Urine pH 5.5 (<5.0-8.0) Urine Specific [place] <=1.005 (1.000-1.030) Urine Protein Negative mg/dL (NEG-TRACE) Urine Glucose (UA) Negative mg/dL (NEG) Urine Ketones (Stick) Negative mg/dL (NEG) Urine Blood Negative (NEG) Urine Nitrite Negative (NEG) Urine Bilirubin Negative (NEG) Urine Urobilinogen Dipstick 0.2 mg/dL (0.2 mg/dL) Urine Leukocyte Esterase Negative (NEG) Urine RBC 1-2 /HPF (0-2) Urine WBC 1-4 /HPF (0-4) Urine Squamous Epithelial Cells Occ /LPF Urine Bacteria Few /HPF (0-FEW) Sodium Level 142 mmol/L (136-145) Potassium Level 3.4 mmol/L (3.5-5.1) Chloride Level 113 mmol/L (98-107) Carbon Dioxide Level 18 mmol/L (21-32) Anion Gap 11 (6-14) Blood Urea Nitrogen 24 mg/dL (7-20) Creatinine 2.5 mg/dL (0.6-1.0) Estimated GFR (Cockcroft-Gault) 19.5 Glucose Level 78 mg/dL (70-99) Calcium Level 7.6 mg/dL (8.5-10.1) White Blood Count 6.3 x10^3/uL (4.0-11.0) Red Blood Count 2.31 x10^6/uL (3.50-5.70) Hemoglobin 7.1 g/dL (12.0-15.5) Hematocrit 21.3 % (36.0-47.0) Mean Corpuscular Volume 91 fL (79-100) Mean Corpuscular Hemoglobin 30 pg (25-35) Mean Corpuscular Hemoglobin Concent 33 g/dL (31-37) Red Cell Distribution Width 13.9 % (11.5-14.5) Platelet Count 207 x10^3/uL (140-400) Neutrophils (%) (Auto) 64 % (31-73) Lymphocytes (%) (Auto) 19 % (24-48) Monocytes (%) (Auto) 8 % (0-9) Eosinophils (%) (Auto) 9 % (0-3) Basophils (%) (Auto) 1 % (0-3) Neutrophils # (Auto) 4.0 x10^3/uL (1.8-7.7) Lymphocytes # (Auto) 1.2 x10^3/uL (1.0-4.8) Monocytes # (Auto) 0.5 x10^3/uL (0.0-1.1) Eosinophils # (Auto) 0.6 x10^3/uL (0.0-0.7) Basophils # (Auto) 0.0 x10^3/uL (0.0-0.2) Absolute Reticulocyte Count 0.019 x10^6/uL (0.020-0.120) Percent Reticulocyte Count 0.8 % (0.5-2.3) Immature Reticulocyte Fraction 0.22 (0.20-0.60) Medications Active Scripts Medications Dose Route/Sig Max Daily Dose Days Date Category Excedrin Migraine Caplet (Aspirin/Acetaminophen/Caffeine) 1 Each Tablet 1 Each PO PRN BID PRN 03/09/20 Reported Levothyroxine Sodium 88 Mcg Tablet 1 Tab PO DAILY 03/09/20 Reported Amitriptyline Hcl 50 Mg Tablet 1 Tab PO QHS 10/14/15 Reported Hydrocodone-Apap 5-325 (Hydrocodone Bit/Acetaminophen) 1 Each Tablet 1 Tab PO PRN Q12HRS PRN 10/14/15 Reported Lorazepam 0.5 Mg Tablet 0.5 Mg PO TID PRN 10/13/15 Reported Comments Chest x-ray reviewed pneumothorax right lower chest Impression . IMPRESSION: 1. Nontraumatic spontaneous right-sided pneumothorax. This is the first time she had the pneumothorax, likely related to chronic obstructive pulmonary disease. 2. Interstitial infiltrates, more on the right than on the left. Could be related to mild re-expansion interstitial edema. 3. Underlying chronic obstructive pulmonary disease. 4. SY--- ongoing Chest x-ray Right basilar thoracostomy tube is in similar position with interval increase in right basilar pneumothorax measuring 2.2 cm pleural separation, previously 1.0 cm pleural separation. Increase in trace right pleural effusion. Similar aeration of the left lung with small left pleural effusion and adjacent compressive atelectasis versus infiltrate. Pulmonary emphysematous changes appear similar with biapical pleural-parenchymal scarring. Plan . CT chest Continue supplemental oxygen to keep sats above 92%--- now on room air Continue chest tube to suction. I did not appreciate an air leak Cont. levaquin for ABX Hold of on lasix 2/2 renal function Follow Renal recommendations DVT/GI PPX D/W RN and PT. DNR DEACON HINES MD Mar 13, 2020 08:50
[2020-03-13] MEDS: LACTOBACILLUS RHAMNOSUS GG 1 CAPSULE. PO SCH ×2 (08:59→22:15)
[2020-03-13] MEDS: CYANOCOBALAMIN (VITAMIN B-12) 1,000 MCG/ML VIAL IM SCH (09:01)
[2020-03-13] MEDS: LORazepam 0.5 MG TABLET PO PRN ×2 (09:09→16:21)
--- NOTE | 2020-03-13 09:26 | PDOC ---
DATE OF SERVICE DATE: 03/13/20 TIME: 09:26 SUBJECTIVE ROS Stable OBJECTIVE Vital Signs Vital Signs Date Time Temp Pulse Resp B/P (MAP) Pulse Ox O2 Delivery O2 Flow Rate FiO2 03/13/20 07:00 98.8 79 16 142/74 (96) 96 Room Air 98.8 I & 0 Intake and Output 03/13/20 07:00 Intake Total 920 ml Output Total 2865 ml Balance -1945 ml Intake Oral 920 ml Output Urine Total 2750 ml Chest Tube Drainage Total 115 ml PHYSICAL EXAM Physical Exam GENERAL APPEARANCE: NAD HEENT: Eyes are sunken, sallow complexion. NECK: No increased JVD. LUNGS: Clear, non labored CARDIAC: S1S2 ABDOMEN: Scaphoid, nontender. EXTREMITIES: Diffuse muscle wasting. No edema. NEUROLOGIC: Nonfocal, nonlocalized. DIAGNOSIS/ASSESSMENT Assessment & Plan SY - Vasomotor, improving 3.4-->2.5 Supportive care , I/O, avoid nephrotoxins CKD Abnormal renal function since 2016, No interval labs in [facility] records .Echogenic and small appearing bilateral kidneys probably medical renal disease. No history of diabetes mellitus or hypertension per her report and records. Recommned fu with Renal as OP(Non urgent ) Cystic structures identified in the bilateral kidneys probably cysts. COPD improving with a right chest tube in place, Pulm managing COMMENT/RELEVANT DATA Meds Current Medications Medications (Trade) Dose Ordered Sig/Eliza Start Time Stop Time Status Last Admin Dose Admin Acetaminophen/ Hydrocodone Bitart (Lortab 5/325) 1 tab PRN Q6HRS PRN 03/09/20 20:15 03/13/20 05:25 1 TAB Albuterol/ Ipratropium (Duoneb) 9 ml 1X ONCE 03/09/20 13:30 03/09/20 13:31 DC 03/09/20 13:52 9 ML Amitriptyline HCl (Elavil) 50 mg QHS 03/09/20 21:00 03/12/20 21:56 50 MG Aspirin (Aspirin Chewable) 324 mg 1X ONCE 03/09/20 13:30 03/09/20 13:31 DC 03/09/20 13:59 324 MG Cyanocobalamin (Vitamin B-12) 1,000 mcg DAILY 03/13/20 09:00 03/13/20 09:01 1,000 MCG Enoxaparin Sodium (Lovenox 30mg Syringe) 30 mg Q24H 03/11/20 12:00 03/12/20 12:27 30 MG Fentanyl Citrate (Fentanyl 2ml Vial) 50 mcg 1X ONCE 03/09/20 14:30 03/09/20 14:31 DC 03/09/20 14:41 50 MCG Influenza Virus Vaccine Quadrival (Fluzone Quad Syringe) 0.5 ml ONCE ONCE 03/10/20 09:00 03/10/20 09:01 DC 03/10/20 09:37 0.5 ML Lactobacillus Rhamnosus (Culturelle) 1 cap BID 03/12/20 21:00 03/13/20 08:59 1 CAP Levofloxacin/ Dextrose 100 ml @ 100 mls/hr Q48H 03/12/20 11:00 03/12/20 11:02 100 MLS/HR Levofloxacin/ Dextrose (Levaquin Per Pharmacy) 1 each PRN DAILY PRN 03/12/20 10:15 Levothyroxine Sodium (Synthroid) 88 mcg DAILY06 03/10/20 09:00 03/13/20 05:25 88 MCG Lidocaine HCl (Lidocaine 1% 20ml Vial) 40 ml 1X ONCE 03/09/20 14:30 03/09/20 14:31 DC 03/09/20 14:48 40 ML Lorazepam (Ativan Inj) 1 mg 1X ONCE 03/09/20 14:30 03/09/20 14:31 DC 03/09/20 14:40 1 MG Lorazepam (Ativan) 0.5 mg PRN TID PRN 03/09/20 20:15 03/13/20 09:09 0.5 MG Ondansetron HCl (Zofran Odt) 4 mg PRN Q6HRS PRN 03/12/20 14:15 03/12/20 16:14 4 MG Ondansetron HCl (Zofran) 4 mg PRN Q8HRS PRN 03/09/20 15:45 03/10/20 15:44 DC Potassium Chloride (Klor-Con) 20 meq 1X ONCE 03/13/20 08:45 03/13/20 08:50 DC 03/13/20 08:59 20 MEQ Prednisone (Prednisone) 60 mg 1X ONCE 03/09/20 13:30 03/09/20 13:31 DC 03/09/20 14:00 60 MG Sodium Chloride 1,000 ml @ 100 mls/hr Q10H 03/09/20 20:15 03/13/20 08:48 DC 03/12/20 21:57 100 MLS/HR Lab Laboratory Tests Test 03/12/20 16:04 03/13/20 06:20 03/13/20 06:25 Urine Collection Type Unknown Urine Color Yellow Urine Clarity Clear Urine pH 5.5 (<5.0-8.0) Urine Specific [place] <=1.005 (1.000-1.030) Urine Protein Negative mg/dL (NEG-TRACE) Urine Glucose (UA) Negative mg/dL (NEG) Urine Ketones (Stick) Negative mg/dL (NEG) Urine Blood Negative (NEG) Urine Nitrite Negative (NEG) Urine Bilirubin Negative (NEG) Urine Urobilinogen Dipstick 0.2 mg/dL (0.2 mg/dL) Urine Leukocyte Esterase Negative (NEG) Urine RBC 1-2 /HPF (0-2) Urine WBC 1-4 /HPF (0-4) Urine Squamous Epithelial Cells Occ /LPF Urine Bacteria Few /HPF (0-FEW) Sodium Level 142 mmol/L (136-145) Potassium Level 3.4 mmol/L (3.5-5.1) Chloride Level 113 mmol/L (98-107) Carbon Dioxide Level 18 mmol/L (21-32) Anion Gap 11 (6-14) Blood Urea Nitrogen 24 mg/dL (7-20) Creatinine 2.5 mg/dL (0.6-1.0) Estimated GFR (Cockcroft-Gault) 19.5 Glucose Level 78 mg/dL (70-99) Calcium Level 7.6 mg/dL (8.5-10.1) White Blood Count 6.3 x10^3/uL (4.0-11.0) Red Blood Count 2.31 x10^6/uL (3.50-5.70) Hemoglobin 7.1 g/dL (12.0-15.5) Hematocrit 21.3 % (36.0-47.0) Mean Corpuscular Volume 91 fL (79-100) Mean Corpuscular Hemoglobin 30 pg (25-35) Mean Corpuscular Hemoglobin Concent 33 g/dL (31-37) Red Cell Distribution Width 13.9 % (11.5-14.5) Platelet Count 207 x10^3/uL (140-400) Neutrophils (%) (Auto) 64 % (31-73) Lymphocytes (%) (Auto) 19 % (24-48) Monocytes (%) (Auto) 8 % (0-9) Eosinophils (%) (Auto) 9 % (0-3) Basophils (%) (Auto) 1 % (0-3) Neutrophils # (Auto) 4.0 x10^3/uL (1.8-7.7) Lymphocytes # (Auto) 1.2 x10^3/uL (1.0-4.8) Monocytes # (Auto) 0.5 x10^3/uL (0.0-1.1) Eosinophils # (Auto) 0.6 x10^3/uL (0.0-0.7) Basophils # (Auto) 0.0 x10^3/uL (0.0-0.2) Absolute Reticulocyte Count 0.019 x10^6/uL (0.020-0.120) Percent Reticulocyte Count 0.8 % (0.5-2.3) Immature Reticulocyte Fraction 0.22 (0.20-0.60) Results All relevant outside records, renal labs, imaging studies, telemetry/EKG's were reviewed. Other Right basilar thoracostomy tube is in similar position with interval increase in right basilar pneumothorax measuring 2.2 cm pleural separation, previously 1.0 cm pleural separation. Increase in trace right pleural effusion. Similar aeration of the left lung with small left pleural effusion and adjacent compressive atelectasis versus infiltrate. Pulmonary emphysematous changes appear similar with biapical pleural-parenchymal scarring. Justicifation of Admission Dx: Justifications for Admission: Justification of Admission Dx: Yes MARISELA PRIETO MD Mar 13, 2020 09:26
--- NOTE | 2020-03-13 10:04 | RAD ---
CHEST AP ONLY 03/13/2020 8:58 AM INDICATION: Pneumothorax COMPARISON: 03/12/2020 TECHNIQUE: Portable frontal view of the chest is provided. FINDINGS: The cardiomediastinal silhouette is similar in appearance. Right basilar thoracostomy tube is in similar position. There is increase in size of right basilar pneumothorax with 2.2 cm pleural separation, previously measuring 1.0 cm. Trace right pleural effusion. Small left pleural effusion with adjacent compressive atelectasis versus infiltrate appears similar. Patchy interstitial changes at the lung bases appear similar. There is pulmonary emphysematous changes noted. Biapical pleural-parenchymal scarring is present. Right chest wall subcutaneous emphysema is noted. No suspicious osseous abnormality. IMPRESSION: Right basilar thoracostomy tube is in similar position with interval increase in right basilar pneumothorax measuring 2.2 cm pleural separation, previously 1.0 cm pleural separation. Increase in trace right pleural effusion. Similar aeration of the left lung with small left pleural effusion and adjacent compressive atelectasis versus infiltrate. Pulmonary emphysematous changes appear similar with biapical pleural-parenchymal scarring. Electronically signed by: Krista Painter MD (03/13/2020 10:02 AM) [id number]
--- NOTE | 2020-03-13 10:23 | NUR ---
SS following up with discharge planning. SS reviewed pt chart and discussed with pt RN. Chest tube remains at this time. Pt on IV Levaquin. PT/OT ordered. Pt is currently on room air. SS will continue to follow for discharge planning.
[2020-03-13 11:00] VITALS: BP 164/77
[2020-03-13] MEDS: ENOXAPARIN 30 MG/0.3 ML SYRINGE. SQ SCH (12:30)
[2020-03-13 14:12] LABS: ALBUM 3.1 g/dL (2.9-4.4); ALPHA 1 0.2 g/dL (0.0-0.4); ALPHA 2 0.8 g/dL (0.4-1.0); BETA 0.6 g/dL (0.7-1.3); GAMMA 0.6 g/dL (0.4-1.8); PROTEIN TOTAL 5.2 g/dL (6.0-8.5); SPEP AG RATIO 1.5 (0.7-1.7)
[2020-03-13 15:00] VITALS: BP 156/73
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
[2020-03-13 19:45] VITALS: BP 171/78
[2020-03-13] MEDS: AMITRIPTYLINE HCL 25 MG TABLET. PO SCH (22:15)
[2020-03-13 23:10] VITALS: BP 191/89
[2020-03-14] VITALS (10 sets, daily range): BP systolic 136–211; BP diastolic 63–108
[2020-03-14 05:26] LABS: CREATININE 2.8 mg/dL (0.6-1.0); GFR 17.1; POTASSIUM 3.3 mmol/L (3.5-5.1)
[2020-03-14] MEDS: LEVOTHYROXINE 88 MCG TABLET PO SCH (06:15)
--- NOTE | 2020-03-14 08:33 | PDOC ---
PULMONARY PROGRESS NOTES DATE: 03/14/20 TIME: 08:33 Subjective Patient wishes to go home, I have informed her that she will still have 2 to 3 days before should go home She is not more short of air. Vitals Vital Signs Date Time Temp Pulse Resp B/P (MAP) Pulse Ox O2 Delivery O2 Flow Rate FiO2 03/14/20 03:20 98.9 85 18 153/78 (103) 92 Room Air 98.9 03/13/20 15:00 2.0 ROS: No Nausea, No Chest Pain, No Abdominal Pain, No Increase Cough General: Alert, Oriented X4 Lungs: Clear Cardiovascular: S1, S2 Abdomen: Soft Neuro Exam: Alert Extremities: No Edema Skin: Warm, Dry Labs Laboratory Tests Test 03/12/20 16:04 03/13/20 06:20 03/13/20 06:25 03/14/20 04:10 Urine Collection Type Unknown Urine Color Yellow Urine Clarity Clear Urine pH 5.5 (<5.0-8.0) Urine Specific [place] <=1.005 (1.000-1.030) Urine Protein Negative mg/dL (NEG-TRACE) Urine Glucose (UA) Negative mg/dL (NEG) Urine Ketones (Stick) Negative mg/dL (NEG) Urine Blood Negative (NEG) Urine Nitrite Negative (NEG) Urine Bilirubin Negative (NEG) Urine Urobilinogen Dipstick 0.2 mg/dL (0.2 mg/dL) Urine Leukocyte Esterase Negative (NEG) Urine RBC 1-2 /HPF (0-2) Urine WBC 1-4 /HPF (0-4) Urine Squamous Epithelial Cells Occ /LPF Urine Bacteria Few /HPF (0-FEW) Sodium Level 142 mmol/L (136-145) 143 mmol/L (136-145) Potassium Level 3.4 mmol/L (3.5-5.1) 3.3 mmol/L (3.5-5.1) Chloride Level 113 mmol/L (98-107) 112 mmol/L (98-107) Carbon Dioxide Level 18 mmol/L (21-32) 18 mmol/L (21-32) Anion Gap 11 (6-14) 13 (6-14) Blood Urea Nitrogen 24 mg/dL (7-20) 23 mg/dL (7-20) Creatinine 2.5 mg/dL (0.6-1.0) 2.8 mg/dL (0.6-1.0) Estimated GFR (Cockcroft-Gault) 19.5 17.1 Glucose Level 78 mg/dL (70-99) 93 mg/dL (70-99) Calcium Level 7.6 mg/dL (8.5-10.1) 8.0 mg/dL (8.5-10.1) White Blood Count 6.3 x10^3/uL (4.0-11.0) Red Blood Count 2.31 x10^6/uL (3.50-5.70) Hemoglobin 7.1 g/dL (12.0-15.5) Hematocrit 21.3 % (36.0-47.0) Mean Corpuscular Volume 91 fL (79-100) Mean Corpuscular Hemoglobin 30 pg (25-35) Mean Corpuscular Hemoglobin Concent 33 g/dL (31-37) Red Cell Distribution Width 13.9 % (11.5-14.5) Platelet Count 207 x10^3/uL (140-400) Neutrophils (%) (Auto) 64 % (31-73) Lymphocytes (%) (Auto) 19 % (24-48) Monocytes (%) (Auto) 8 % (0-9) Eosinophils (%) (Auto) 9 % (0-3) Basophils (%) (Auto) 1 % (0-3) Neutrophils # (Auto) 4.0 x10^3/uL (1.8-7.7) Lymphocytes # (Auto) 1.2 x10^3/uL (1.0-4.8) Monocytes # (Auto) 0.5 x10^3/uL (0.0-1.1) Eosinophils # (Auto) 0.6 x10^3/uL (0.0-0.7) Basophils # (Auto) 0.0 x10^3/uL (0.0-0.2) Absolute Reticulocyte Count 0.019 x10^6/uL (0.020-0.120) Percent Reticulocyte Count 0.8 % (0.5-2.3) Immature Reticulocyte Fraction 0.22 (0.20-0.60) Laboratory Tests Test 03/14/20 04:10 Sodium Level 143 mmol/L (136-145) Potassium Level 3.3 mmol/L (3.5-5.1) Chloride Level 112 mmol/L (98-107) Carbon Dioxide Level 18 mmol/L (21-32) Anion Gap 13 (6-14) Blood Urea Nitrogen 23 mg/dL (7-20) Creatinine 2.8 mg/dL (0.6-1.0) Estimated GFR (Cockcroft-Gault) 17.1 Glucose Level 93 mg/dL (70-99) Calcium Level 8.0 mg/dL (8.5-10.1) Medications Active Scripts Medications Dose Route/Sig Max Daily Dose Days Date Category Excedrin Migraine Caplet (Aspirin/Acetaminophen/Caffeine) 1 Each Tablet 1 Each PO PRN BID PRN 03/09/20 Reported Levothyroxine Sodium 88 Mcg Tablet 1 Tab PO DAILY 03/09/20 Reported Amitriptyline Hcl 50 Mg Tablet 1 Tab PO QHS 10/14/15 Reported Hydrocodone-Apap 5-325 (Hydrocodone Bit/Acetaminophen) 1 Each Tablet 1 Tab PO PRN Q12HRS PRN 10/14/15 Reported Lorazepam 0.5 Mg Tablet 0.5 Mg PO TID PRN 10/13/15 Reported Comments Chest x-ray reviewed pneumothorax right lower chest Impression . IMPRESSION: 1. Nontraumatic spontaneous right-sided pneumothorax. This is the first time she had the pneumothorax, likely related to chronic obstructive pulmonary disease. 2. Interstitial infiltrates, more on the right than on the left. Could be related to mild re-expansion interstitial edema. 3. Underlying chronic obstructive pulmonary disease. 4. SY--- ongoing CT chest reviewed, chest tube needs to be replaced Chest x-ray Right basilar thoracostomy tube is in similar position with interval increase in right basilar pneumothorax measuring 2.2 cm pleural separation, previously 1.0 cm pleural separation. Increase in trace right pleural effusion. Similar aeration of the left lung with small left pleural effusion and adjacent compressive atelectasis versus infiltrate. Pulmonary emphysematous changes appear similar with biapical pleural-parenchymal scarring. Plan . CT chest reviewed, I informed the patient that the chest tube need to be replaced She continues to have an air leak on chest current tube Continue supplemental oxygen to keep sats above 92%--- now on room air Cont. levaquin for ABX Hold of on lasix 2/2 renal function Follow Renal recommendations DVT/GI PPX D/W RN and PT. DNR DEACON HINES MD Mar 14, 2020 08:33
[2020-03-14] MEDS: LACTOBACILLUS RHAMNOSUS GG 1 CAPSULE. PO SCH ×2 (08:37→20:48)
[2020-03-14] MEDS: CYANOCOBALAMIN (VITAMIN B-12) 1,000 MCG/ML VIAL IM SCH (08:38)
--- NOTE | 2020-03-14 08:51 | PDOC ---
PROGRESS NOTES Date of Service: DATE: 03/14/20 TIME: 08:51 Subjective Subjective no new problems Objective Objective Vital Signs Date Time Temp Pulse Resp B/P (MAP) Pulse Ox O2 Delivery O2 Flow Rate FiO2 03/14/20 03:20 98.9 85 18 153/78 (103) 92 Room Air 98.9 03/13/20 15:00 2.0 Intake and Output 03/14/20 07:00 Intake Total 918 ml Output Total 3850 ml Balance -2932 ml Intake Oral 918 ml Output Urine Total 3850 ml Physical Exam Abdomen: Normal bowel sounds, Soft Heart: Regular rate Extremities: No clubbing General: Alert, Oriented X3 HEENT: Atraumatic Lungs: Clear to auscultation MUSCULOSKELETAL: No joint tenderness Neck: Supple Neuro: Normal speech Psych/Mental Status: Mental status NL Skin: No rashes COMMENT Rt chest tube Diagnosis Problem List Problems Medical Problems: (1) Acute renal failure Status: Acute (2) Adult failure to thrive Status: Acute (3) Anemia Status: Acute (4) Secondary spontaneous pneumothorax Status: Acute Assessment Assessment Problems Medical Problems: (1) Acute renal failure Status: Acute (2) Adult failure to thrive Status: Acute (3) Anemia Status: Acute (4) Secondary spontaneous pneumothorax Status: Acute FINAL IMPRESSION: 1. Spontaneous right Pneumothorax.worsened. 2. Chronic obstructive pulmonary disease with emphysema. 3. Chronic kidney disease, creatinine of 3. 4. Hypothyroidism. 5. Anxiety with depression. PLAN:CT chest today d/c iv fluids cxr pending chest tube placed in ER at admission water seal cxr worsening pneumothorax cr 2.8, stabilized sono kidneys, shows ch kidney diasese. dvt prevention. xanax+lortab. At this time, the patient was admitted to the hospital, had a chest tube placed in the Emergency Room with water seal. Patient was admitted to the second floor. Pulmonary is consulted and the patient also has kidney failure with creatinine of 3.5 and 1.5 two years ago. We will do ultrasound of the kidneys, renal consult, cautious hydration and see if that improves her renal function. Plan Plan of Care Problems Medical Problems: (1) Acute renal failure Status: Acute (2) Adult failure to thrive Status: Acute (3) Anemia Status: Acute (4) Secondary spontaneous pneumothorax Status: Acute Comment Review of Relevant I have reviewed the following items rené (where applicable) has been applied. Labs Laboratory Tests Test 03/14/20 04:10 Sodium Level 143 mmol/L (136-145) Potassium Level 3.3 mmol/L (3.5-5.1) Chloride Level 112 mmol/L (98-107) Carbon Dioxide Level 18 mmol/L (21-32) Anion Gap 13 (6-14) Blood Urea Nitrogen 23 mg/dL (7-20) Creatinine 2.8 mg/dL (0.6-1.0) Estimated GFR (Cockcroft-Gault) 17.1 Glucose Level 93 mg/dL (70-99) Calcium Level 8.0 mg/dL (8.5-10.1) Medications Current Medications Cyanocobalamin (Vitamin B-12) 1,000 mcg DAILY IM Last administered on 03/14/20at 08:38; Start 03/13/20 at 09:00 Vitals/I & O Vital Sign - Last 24 Hours 03/13/20 03/13/20 03/13/20 03/13/20 11:00 12:29 13:45 15:00 Temp 98.8 98.6 98.8 98.6 Pulse 83 90 Resp 16 18 B/P (MAP) 164/77 (106) 156/73 (100) Pulse Ox 95 99 O2 Delivery Nasal Cannula Room Air Room Air Nasal Cannula O2 Flow Rate 2.0 2.0 03/13/20 03/13/20 03/13/20 03/13/20 19:45 20:00 22:39 23:10 Temp 98.0 98.0 98.0 98.0 Pulse 89 93 Resp 20 20 B/P (MAP) 171/78 (109) 191/89 (123) Pulse Ox 94 94 95 O2 Delivery Room Air Room Air Room Air Room Air 03/13/20 03/14/20 23:39 03:20 Temp 98.9 98.9 Pulse 85 Resp 18 B/P (MAP) 153/78 (103) Pulse Ox 95 92 O2 Delivery Room Air Room Air Intake and Output 03/13/20 03/13/20 03/14/20 15:00 23:00 07:00 Intake Total 318 ml 200 ml 400 ml Output Total 800 ml 1450 ml 1600 ml Balance -482 ml -1250 ml -1200 ml Justifications for Admission Other Justification SUZAN HEARD MD Mar 14, 2020 08:51
[2020-03-14] MEDS ORDERED: POTASSIUM CHLORIDE 20 MEQ TABLET.ER. PO ONE (09:30)
[2020-03-14] MEDS: HYDROcodone/APAP 5/325MG 1 TAB TABLET PO PRN ×2 (09:56→20:49)
--- NOTE | 2020-03-14 11:50 | NUR ---
SS following for discharge planning. SS reviewed pt chart and discussed with pt RN. Chest tube remains at this time. Pt having CT scan today. Pt currently on room air. COVID19 negative. Pt on IV Levaquin. PT recommended home with home healthcare. SS will continue to follow for discharge planning.
--- NOTE | 2020-03-14 11:58 | RAD ---
EXAM: CHEST 1 VIEW History: Pneumothorax COMPARISON: 03/13/2020 TECHNIQUE: Single portable radiograph of the chest Findings/ impression: The cardiac silhouette is unremarkable. Right chest tube unchanged. Interval decrease in the right-sided pneumothorax with small residual right basal pneumothorax. Small right and left pleural effusion. Mild prominent bilateral interstitial lung markings likely congestive changes. Electronically signed by: Jean Carlos Blanc MD (03/14/2020 11:56 AM) [id number]
[2020-03-14] MEDS: ENOXAPARIN 30 MG/0.3 ML SYRINGE. SQ SCH (12:00)
--- NOTE | 2020-03-14 12:26 | RAD ---
EXAM: CT CHEST WITHOUT CONTRAST HISTORY: Chest tube COMPARISON: Chest radiograph 03/13/2020 TECHNIQUE: Helical CT of the chest performed without contrast. Coronal and sagittal reformats were obtained. One or more of the following individualized dose reduction techniques were utilized for this examination: 1. Automated exposure control 2. Adjustment of the mA and/or kV according to patient size 3. Use of iterative reconstruction technique. FINDINGS: Thyroid gland and thoracic inlet: Thyroid gland is atrophic or absent. Heart and great vessels: Heart is normal in size. No pericardial effusion. There are coronary artery calcifications. The thoracic aorta is normal in caliber with mild calcified atherosclerosis. Mediastinum and gaston: No lymphadenopathy. There are few calcified nodes Lungs and pleura: A pleural catheter is in the right hemithorax with approximately 4 cm of the distal catheter extending along the major fissure and most sideholes likely within the fissure rather than the peripheral pleural space. There is a small right hydropneumothorax, with pneumothorax component greatest at the lung base. There are 2 nodular consolidative opacities in the right middle lobe near the chest tube insertion site. One of these is irregular in appearance and measures 1 cm and the other measures 1.5 cm and has adjacent focal pleural thickening or fluid. Small amount of pleural retraction adjacent to the nodules. There is moderate apical predominant centrilobular and paraseptal with a few large blebs in the apices and pleural parenchymal scarring in both apices. There are pleural calcifications at the right apex. Small left pleural effusion with pleural thickening and calcifications. Chest wall and axillae: There is subcutaneous gas in the anterior chest wall, likely from chest tube insertion. No axillary lymphadenopathy. Upper abdomen: Calcified splenic granulomas. Upper abdomen is otherwise unremarkable. Bones: Mild atherosclerosis of the thoracic spine. No acute osseous abnormality IMPRESSION: 1. Small right hydropneumothorax. The pleural catheter extends along the major fissure with most sideholes likely along the fissure rather than the peripheral pleural space. Consider repositioning/replacing the catheter. 2. Moderate apical predominant centrilobular emphysema with several blebs at the apices and biapical pleural-parenchymal scarring. 3. Two nodular opacities in the right middle lobe near chest tube insertion site, measuring up to 1.5 cm. These may be residual opacities related to the acute process in the right lower lobe on recent chest radiographs, however neoplasm is not excluded. Recommend short interval follow-up CT to ensure resolution. Findings regarding pleural catheter positioning were discussed by Dr. Sexton with nurse Moody at 12:10 PM on 03/14/2020. Electronically signed by: Nina Sexton MD (03/14/2020 12:23 PM) [id number]
--- NOTE | 2020-03-14 14:01 | PDOC ---
DATE OF SERVICE DATE: 03/14/20 TIME: 13:57 SUBJECTIVE ROS Stable OBJECTIVE Vital Signs Vital Signs Date Time Temp Pulse Resp B/P (MAP) Pulse Ox O2 Delivery O2 Flow Rate FiO2 03/14/20 11:00 98.7 89 16 159/80 (106) 96 Room Air 98.7 03/14/20 08:00 2.0 I & 0 Intake and Output 03/14/20 07:00 Intake Total 918 ml Output Total 3850 ml Balance -2932 ml Intake Oral 918 ml Output Urine Total 3850 ml PHYSICAL EXAM Physical Exam GENERAL APPEARANCE: NAD HEENT: Eyes are sunken, sallow complexion. NECK: No increased JVD. LUNGS: Clear, non labored CARDIAC: S1S2 ABDOMEN: Scaphoid, nontender. EXTREMITIES: Diffuse muscle wasting. No edema. NEUROLOGIC: Nonfocal, nonlocalized. DIAGNOSIS/ASSESSMENT Assessment & Plan SY - Vasomotor, improving , stable Supportive care , I/O, avoid nephrotoxins HypoKalemia- replace as needed CKD Abnormal renal function since 2015, No interval labs in [facility] records .Echogenic and small appearing bilateral kidneys probably medical renal disease. No history of diabetes mellitus or hypertension per her report and records. Recommned fu with Renal as OP(Non urgent ) Cystic structures identified in the bilateral kidneys probably cysts. Nontraumatic spontaneous right-sided pneumothorax. likely related to chronic obstructive pulmonary disease. Anemia - Fe def , r/o causes for Fe def - per primary Can consider IV Fe infusion COMMENT/RELEVANT DATA Meds Current Medications Medications (Trade) Dose Ordered Sig/Eliza Start Time Stop Time Status Last Admin Dose Admin Acetaminophen/ Hydrocodone Bitart (Lortab 5/325) 1 tab PRN Q6HRS PRN 03/09/20 20:15 03/14/20 09:56 1 TAB Albuterol/ Ipratropium (Duoneb) 9 ml 1X ONCE 03/09/20 13:30 03/09/20 13:31 DC 03/09/20 13:52 9 ML Amitriptyline HCl (Elavil) 50 mg QHS 03/09/20 21:00 03/13/20 22:15 50 MG Aspirin (Aspirin Chewable) 324 mg 1X ONCE 03/09/20 13:30 03/09/20 13:31 DC 03/09/20 13:59 324 MG Cyanocobalamin (Vitamin B-12) 1,000 mcg DAILY 03/13/20 09:00 03/14/20 08:38 1,000 MCG Enoxaparin Sodium (Lovenox 30mg Syringe) 30 mg Q24H 03/11/20 12:00 03/13/20 12:30 30 MG Fentanyl Citrate (Fentanyl 2ml Vial) 50 mcg 1X ONCE 03/09/20 14:30 03/09/20 14:31 DC 03/09/20 14:41 50 MCG Influenza Virus Vaccine Quadrival (Fluzone Quad Syringe) 0.5 ml ONCE ONCE 03/10/20 09:00 03/10/20 09:01 DC 03/10/20 09:37 0.5 ML Lactobacillus Rhamnosus (Culturelle) 1 cap BID 03/12/20 21:00 03/14/20 08:37 1 CAP Levofloxacin/ Dextrose 100 ml @ 100 mls/hr Q48H 03/12/20 11:00 03/14/20 11:49 100 MLS/HR Levofloxacin/ Dextrose (Levaquin Per Pharmacy) 1 each PRN DAILY PRN 03/12/20 10:15 Levothyroxine Sodium (Synthroid) 88 mcg DAILY06 03/10/20 09:00 03/14/20 06:15 88 MCG Lidocaine HCl (Lidocaine 1% 20ml Vial) 40 ml 1X ONCE 03/09/20 14:30 03/09/20 14:31 DC 03/09/20 14:48 40 ML Lorazepam (Ativan Inj) 1 mg 1X ONCE 03/09/20 14:30 03/09/20 14:31 DC 03/09/20 14:40 1 MG Lorazepam (Ativan) 0.5 mg PRN TID PRN 03/09/20 20:15 03/13/20 16:21 0.5 MG Ondansetron HCl (Zofran Odt) 4 mg PRN Q6HRS PRN 03/12/20 14:15 03/12/20 16:14 4 MG Ondansetron HCl (Zofran) 4 mg PRN Q8HRS PRN 03/09/20 15:45 03/10/20 15:44 DC Potassium Chloride (Klor-Con) 20 meq DAILYWBKFT 03/15/20 08:00 Prednisone (Prednisone) 60 mg 1X ONCE 03/09/20 13:30 03/09/20 13:31 DC 03/09/20 14:00 60 MG Sodium Chloride 1,000 ml @ 100 mls/hr Q10H 03/09/20 20:15 03/13/20 08:48 DC 03/12/20 21:57 100 MLS/HR Lab Laboratory Tests Test 03/14/20 04:10 Sodium Level 143 mmol/L (136-145) Potassium Level 3.3 mmol/L (3.5-5.1) Chloride Level 112 mmol/L (98-107) Carbon Dioxide Level 18 mmol/L (21-32) Anion Gap 13 (6-14) Blood Urea Nitrogen 23 mg/dL (7-20) Creatinine 2.8 mg/dL (0.6-1.0) Estimated GFR (Cockcroft-Gault) 17.1 Glucose Level 93 mg/dL (70-99) Calcium Level 8.0 mg/dL (8.5-10.1) Results All relevant outside records, renal labs, imaging studies, telemetry/EKG's were reviewed. Justicifation of Admission Dx: Justifications for Admission: Justification of Admission Dx: Yes MARISELA PRIETO MD Mar 14, 2020 14:01
[2020-03-14] MEDS: ONDANSETRON ODT 4 MG TAB.RAPDIS. PO PRN (14:04)
[2020-03-14] MEDS ORDERED: LIDOCAINE WITH 8.4% SOD BICARB 3 ML DISP.SYRIN. ONE (14:09)
--- NOTE | 2020-03-14 14:37 | NUR ---
Have reviewed documentation completed by internet marketing executive and have made changes as needed
[2020-03-14] MEDS: LORazepam 0.5 MG TABLET PO PRN (14:58)
[2020-03-14] MEDS ORDERED: LIDOCAINE WITH 8.4% SOD BICARB 3 ML DISP.SYRIN. INJ ONE (15:00)
[2020-03-14 15:14] LABS: KAPPA FREE 34.5 mg/L (3.3-19.4); KAPPA LAMBDA RATIO 1.19 (0.26-1.65); LAMBDA FREE 29.1 mg/L (5.7-26.3)
[2020-03-14] MEDS: dilTIAZem HCL 30 MG TABLET PO SCH ×2 (17:31→23:13)
[2020-03-14] MEDS: AMITRIPTYLINE HCL 25 MG TABLET. PO SCH (20:48)
[2020-03-15] VITALS (10 sets, daily range): BP systolic 110–157; BP diastolic 54–74
[2020-03-15] MEDS: LORazepam 0.5 MG TABLET PO PRN ×2 (00:40→20:21)
[2020-03-15] MEDS: HYDROcodone/APAP 5/325MG 1 TAB TABLET PO PRN ×3 (02:50→15:20)
[2020-03-15] MEDS: dilTIAZem HCL 30 MG TABLET PO SCH ×3 (05:48→20:21)
[2020-03-15] MEDS: LEVOTHYROXINE 88 MCG TABLET PO SCH (05:48)
[2020-03-15 06:15] LABS: BASO % 1 % (0-3); EOS # 0.6 x10^3/uL (0.0-0.7); EOS % 10 % (0-3); LYMPH # 1.4 x10^3/uL (1.0-4.8); LYMPH % 23 % (24-48); MEAN CORPUSCULAR HEMOGLOBIN 31 pg (25-35); MEAN CORPUSCULAR HGB CONC 34 g/dL (31-37); MEAN CORPUSCULAR VOLUME 90 fL (79-100); MONO # 0.5 x10^3/uL (0.0-1.1); MONO % 9 % (0-9); NEUT # 3.6 x10^3/uL (1.8-7.7); NEUT % 58 % (31-73); PLATELET COUNT 197 x10^3/uL (140-400); RED BLOOD COUNT 2.17 x10^6/uL (3.50-5.40); RED CELL DISTRIBUTION WIDTH 13.3 % (11.5-14.5); WHITE BLOOD COUNT 6.3 x10^3/uL (4.0-11.0)
[2020-03-15 06:39] LABS: CALCIUM 7.7 mg/dL (8.5-10.1); CREATININE 2.8 mg/dL (0.6-1.0); GFR 17.1; POTASSIUM 4.1 mmol/L (3.5-5.1)
[2020-03-15 07:24] LABS: HEMATOCRIT 19.4 % (36.0-47.0); HEMOGLOBIN 6.7 g/dL (12.0-15.5)
[2020-03-15] MEDS: POTASSIUM CHLORIDE 20 MEQ TABLET.ER. PO SCH (08:00)
--- NOTE | 2020-03-15 08:17 | PDOC ---
PULMONARY PROGRESS NOTES DATE: 03/15/20 TIME: 08:17 Subjective Patient feels better status post second chest tube placement yesterday Vitals Vital Signs Date Time Temp Pulse Resp B/P (MAP) Pulse Ox O2 Delivery O2 Flow Rate FiO2 03/15/20 05:48 79 142/65 03/15/20 03:50 97 Room Air 03/15/20 03:21 98.4 16 98.4 03/14/20 08:00 2.0 ROS: No Nausea, No Chest Pain, No Abdominal Pain, No Increase Cough General: Alert, Oriented X4 Lungs: Clear Cardiovascular: S1, S2 Abdomen: Soft Neuro Exam: Alert Extremities: No Edema Skin: Warm, Dry Labs Laboratory Tests Test 03/14/20 04:10 03/15/20 05:00 Sodium Level 143 mmol/L (136-145) 140 mmol/L (136-145) Potassium Level 3.3 mmol/L (3.5-5.1) 4.1 mmol/L (3.5-5.1) Chloride Level 112 mmol/L (98-107) 109 mmol/L (98-107) Carbon Dioxide Level 18 mmol/L (21-32) 21 mmol/L (21-32) Anion Gap 13 (6-14) 10 (6-14) Blood Urea Nitrogen 23 mg/dL (7-20) 27 mg/dL (7-20) Creatinine 2.8 mg/dL (0.6-1.0) 2.8 mg/dL (0.6-1.0) Estimated GFR (Cockcroft-Gault) 17.1 17.1 Glucose Level 93 mg/dL (70-99) 81 mg/dL (70-99) Calcium Level 8.0 mg/dL (8.5-10.1) 7.7 mg/dL (8.5-10.1) White Blood Count 6.3 x10^3/uL (4.0-11.0) Red Blood Count 2.17 x10^6/uL (3.50-5.40) Hemoglobin 6.7 g/dL (12.0-15.5) Hematocrit 19.4 % (36.0-47.0) Mean Corpuscular Volume 90 fL (79-100) Mean Corpuscular Hemoglobin 31 pg (25-35) Mean Corpuscular Hemoglobin Concent 34 g/dL (31-37) Red Cell Distribution Width 13.3 % (11.5-14.5) Platelet Count 197 x10^3/uL (140-400) Neutrophils (%) (Auto) 58 % (31-73) Lymphocytes (%) (Auto) 23 % (24-48) Monocytes (%) (Auto) 9 % (0-9) Eosinophils (%) (Auto) 10 % (0-3) Basophils (%) (Auto) 1 % (0-3) Neutrophils # (Auto) 3.6 x10^3/uL (1.8-7.7) Lymphocytes # (Auto) 1.4 x10^3/uL (1.0-4.8) Monocytes # (Auto) 0.5 x10^3/uL (0.0-1.1) Eosinophils # (Auto) 0.6 x10^3/uL (0.0-0.7) Basophils # (Auto) 0.0 x10^3/uL (0.0-0.2) Laboratory Tests Test 03/15/20 05:00 White Blood Count 6.3 x10^3/uL (4.0-11.0) Red Blood Count 2.17 x10^6/uL (3.50-5.40) Hemoglobin 6.7 g/dL (12.0-15.5) Hematocrit 19.4 % (36.0-47.0) Mean Corpuscular Volume 90 fL (79-100) Mean Corpuscular Hemoglobin 31 pg (25-35) Mean Corpuscular Hemoglobin Concent 34 g/dL (31-37) Red Cell Distribution Width 13.3 % (11.5-14.5) Platelet Count 197 x10^3/uL (140-400) Neutrophils (%) (Auto) 58 % (31-73) Lymphocytes (%) (Auto) 23 % (24-48) Monocytes (%) (Auto) 9 % (0-9) Eosinophils (%) (Auto) 10 % (0-3) Basophils (%) (Auto) 1 % (0-3) Neutrophils # (Auto) 3.6 x10^3/uL (1.8-7.7) Lymphocytes # (Auto) 1.4 x10^3/uL (1.0-4.8) Monocytes # (Auto) 0.5 x10^3/uL (0.0-1.1) Eosinophils # (Auto) 0.6 x10^3/uL (0.0-0.7) Basophils # (Auto) 0.0 x10^3/uL (0.0-0.2) Sodium Level 140 mmol/L (136-145) Potassium Level 4.1 mmol/L (3.5-5.1) Chloride Level 109 mmol/L (98-107) Carbon Dioxide Level 21 mmol/L (21-32) Anion Gap 10 (6-14) Blood Urea Nitrogen 27 mg/dL (7-20) Creatinine 2.8 mg/dL (0.6-1.0) Estimated GFR (Cockcroft-Gault) 17.1 Glucose Level 81 mg/dL (70-99) Calcium Level 7.7 mg/dL (8.5-10.1) Medications Active Scripts Medications Dose Route/Sig Max Daily Dose Days Date Category Excedrin Migraine Caplet (Aspirin/Acetaminophen/Caffeine) 1 Each Tablet 1 Each PO PRN BID PRN 03/09/20 Reported Levothyroxine Sodium 88 Mcg Tablet 1 Tab PO DAILY 03/09/20 Reported Amitriptyline Hcl 50 Mg Tablet 1 Tab PO QHS 10/14/15 Reported Hydrocodone-Apap 5-325 (Hydrocodone Bit/Acetaminophen) 1 Each Tablet 1 Tab PO PRN Q12HRS PRN 10/14/15 Reported Lorazepam 0.5 Mg Tablet 0.5 Mg PO TID PRN 10/13/15 Reported Comments Chest x-ray reviewed pneumothorax right lower chest Impression . IMPRESSION: 1. Nontraumatic spontaneous right-sided pneumothorax. This is the first time she had the pneumothorax, likely related to chronic obstructive pulmonary disease. 2. Interstitial infiltrates, more on the right than on the left. Could be related to mild re-expansion interstitial edema. 3. Underlying chronic obstructive pulmonary disease. 4. SY--- ongoing CT chest reviewed, chest tube needs to be replaced Chest x-ray Right basilar thoracostomy tube is in similar position with interval increase in right basilar pneumothorax measuring 2.2 cm pleural separation, previously 1.0 cm pleural separation. Increase in trace right pleural effusion. Similar aeration of the left lung with small left pleural effusion and adjacent compressive atelectasis versus infiltrate. Pulmonary emphysematous changes appear similar with biapical pleural-parenchymal scarring. Plan . New tube placed yesterday, now with air leak, chest x-ray has improved Repeat chest x-ray in the a.m. Continue supplemental oxygen to keep sats above 92%--- now on room air Cont. levaquin for ABX Hold of on lasix 2/2 renal function Follow Renal recommendations DVT/GI PPX D/W RN and PT. DNR DEACON HINES MD Mar 15, 2020 08:17
--- NOTE | 2020-03-15 08:23 | RAD ---
03/15/2020 6:18 AM Procedure: CT-guided placement, right thoracostomy tube Clinical Indication: Replace R sided chest tube, right pneumothorax Discussion: The procedure was explained in its entirety to the patient or the patients designated special service representative by a member of the treatment team, including a discussion of the risks, benefits and commonly accepted alternatives to the procedure, as well as the expected consequences of no therapy whatsoever. Discussion of the risks included, but was not limited to, those that are most frequent and those that are rare but possibly severe or life-threatening, as well as the possibility of unforeseen complications. All elements of maximal sterile barrier technique including the use of a cap, mask, sterile gown, sterile gloves, large sterile sheet, appropriate hand hygiene, and 2% chlorhexidine for cutaneous antisepsis (or acceptable alternative antiseptic per current guidelines) were followed for this procedure. CT imaging redemonstrates a large right pneumothorax. The skin overlying the right lateral chest was prepped and draped using sterile barrier technique. 1% lidocaine was administered for local anesthesia. Under intermittent CT guidance a 5 Welsh Yueh needle was advanced into the pleural space. A guidewire was advanced into the pleural space over which, following dilatation a 10 Welsh pigtail drain was placed. Air was freely aspirated. The catheter was connected to Pleur-evac device at -20 cm water continuous suction. Sterile dressings were applied. No immediate complications were identified. Impression: CT-guided right thoracostomy tube placement PQRS Compliance Statement: One or more of the following individualized dose reduction techniques were utilized for this examination: 1. Automated exposure control 2. Adjustment of the mA and/or kV according to patient size 3. Use of iterative reconstruction technique
[2020-03-15] MEDS: CYANOCOBALAMIN (VITAMIN B-12) 1,000 MCG/ML VIAL IM SCH (08:55)
[2020-03-15] MEDS: LACTOBACILLUS RHAMNOSUS GG 1 CAPSULE. PO SCH ×2 (08:55→20:20)
--- NOTE | 2020-03-15 09:05 | PDOC ---
PROGRESS NOTES Date of Service: DATE: 03/15/20 TIME: 09:03 Subjective Subjective feels ok Objective Objective Vital Signs Date Time Temp Pulse Resp B/P (MAP) Pulse Ox O2 Delivery O2 Flow Rate FiO2 03/15/20 07:00 98.4 77 22 138/63 (88) 98 Room Air 98.4 03/14/20 08:00 2.0 Intake and Output 03/15/20 07:00 Intake Total 1400 ml Output Total 1845 ml Balance -445 ml Intake Oral 1400 ml Output Urine Total 1650 ml Chest Tube Drainage Total 195 ml Physical Exam Abdomen: Normal bowel sounds, Soft Heart: Regular rate Extremities: No clubbing General: Alert, Oriented X3 HEENT: Atraumatic Lungs: Clear to auscultation MUSCULOSKELETAL: No joint tenderness Neck: Supple Neuro: Normal speech Psych/Mental Status: Mental status NL Skin: No rashes COMMENT Rt chest tube Diagnosis Problem List Problems Medical Problems: (1) Acute renal failure Status: Acute (2) Adult failure to thrive Status: Acute (3) Anemia Status: Acute (4) Secondary spontaneous pneumothorax Status: Acute Assessment Assessment Problems Medical Problems: (1) Acute renal failure Status: Acute (2) Adult failure to thrive Status: Acute (3) Anemia Status: Acute (4) Secondary spontaneous pneumothorax Status: Acute FINAL IMPRESSION: 1. Spontaneous right Pneumothorax.worsened. 2. Chronic obstructive pulmonary disease with emphysema. 3. Chronic kidney disease, creatinine of 3. 4. Hypothyroidism. 5. Anxiety with depression. PLAN:CT chest showed, hydro pneumothorax. chest tube repositioned Hb 6.7 today ,transfuse 1 unit t prbc today may need skilled next week ,pt reluctant to go to SNU cr 2.8, stabilized sono kidneys, shows ch kidney diasese. dvt prevention. xanax+lortab. At this time, the patient was admitted to the hospital, had a chest tube placed in the Emergency Room with water seal. Patient was admitted to the second floor. Pulmonary is consulted and the patient also has kidney failure with creatinine of 3.5 and 1.5 two years ago. We will do ultrasound of the kidneys, renal consult, cautious hydration and see if that improves her renal function. Plan Plan of Care Problems Medical Problems: (1) Acute renal failure Status: Acute (2) Adult failure to thrive Status: Acute (3) Anemia Status: Acute (4) Secondary spontaneous pneumothorax Status: Acute Comment Review of Relevant I have reviewed the following items rené (where applicable) has been applied. Labs Laboratory Tests Test 03/15/20 05:00 White Blood Count 6.3 x10^3/uL (4.0-11.0) Red Blood Count 2.17 x10^6/uL (3.50-5.40) Hemoglobin 6.7 g/dL (12.0-15.5) Hematocrit 19.4 % (36.0-47.0) Mean Corpuscular Volume 90 fL (79-100) Mean Corpuscular Hemoglobin 31 pg (25-35) Mean Corpuscular Hemoglobin Concent 34 g/dL (31-37) Red Cell Distribution Width 13.3 % (11.5-14.5) Platelet Count 197 x10^3/uL (140-400) Neutrophils (%) (Auto) 58 % (31-73) Lymphocytes (%) (Auto) 23 % (24-48) Monocytes (%) (Auto) 9 % (0-9) Eosinophils (%) (Auto) 10 % (0-3) Basophils (%) (Auto) 1 % (0-3) Neutrophils # (Auto) 3.6 x10^3/uL (1.8-7.7) Lymphocytes # (Auto) 1.4 x10^3/uL (1.0-4.8) Monocytes # (Auto) 0.5 x10^3/uL (0.0-1.1) Eosinophils # (Auto) 0.6 x10^3/uL (0.0-0.7) Basophils # (Auto) 0.0 x10^3/uL (0.0-0.2) Sodium Level 140 mmol/L (136-145) Potassium Level 4.1 mmol/L (3.5-5.1) Chloride Level 109 mmol/L (98-107) Carbon Dioxide Level 21 mmol/L (21-32) Anion Gap 10 (6-14) Blood Urea Nitrogen 27 mg/dL (7-20) Creatinine 2.8 mg/dL (0.6-1.0) Estimated GFR (Cockcroft-Gault) 17.1 Glucose Level 81 mg/dL (70-99) Calcium Level 7.7 mg/dL (8.5-10.1) Medications Current Medications Diltiazem HCl (Cardizem) 60 mg Q8HRS PO Last administered on 03/15/20at 05:48; Start 03/14/20 at 17:00 Lidocaine HCl (Buffered Lidocaine 1%) 3 ml STK-MED ONCE .ROUTE ; Start 03/14/20 at 14:09; Stop 03/14/20 at 14:10; Status DC Lidocaine HCl (Buffered Lidocaine 1%) 6 ml 1X ONCE INJ Last administered on 03/14/20at 14:40; Start 03/14/20 at 15:00; Stop 03/14/20 at 15:01; Status DC Potassium Chloride (Klor-Con) 20 meq DAILYWBKFT PO ; Start 03/15/20 at 08:00 Potassium Chloride (Klor-Con) 40 meq 1X ONCE PO Last administered on 03/14/20at 09:57; Start 03/14/20 at 09:30; Stop 03/14/20 at 09:31; Status DC Vitals/I & O Vital Sign - Last 24 Hours 03/14/20 03/14/20 03/14/20 03/14/20 11:00 14:25 14:30 14:35 Temp 98.7 98.7 Pulse 89 102 99 94 Resp 16 22 24 20 B/P (MAP) 159/80 (106) 211/108 (142) 196/96 (129) 172/97 (122) Pulse Ox 96 95 95 96 O2 Delivery Room Air Room Air Room Air Room Air 03/14/20 03/14/20 03/14/20 03/14/20 14:40 16:00 17:31 19:30 Temp 98.6 98.5 98.6 98.5 Pulse 94 86 87 77 Resp 20 18 16 B/P (MAP) 195/94 (127) 156/71 (99) 171/85 136/63 (87) Pulse Ox 96 97 96 O2 Delivery Room Air Room Air Room Air 03/14/20 03/14/20 03/14/20 03/14/20 20:00 20:49 21:49 22:45 Temp 98.8 98.8 Pulse 83 Resp 16 B/P (MAP) 155/72 (99) Pulse Ox 96 96 96 O2 Delivery Room Air Room Air Room Air Room Air 03/14/20 03/15/20 03/15/20 03/15/20 23:13 02:50 03:21 03:50 Temp 98.4 98.4 Pulse 83 79 Resp 16 B/P (MAP) 155/72 142/65 (90) Pulse Ox 96 97 97 O2 Delivery Room Air Room Air Room Air 03/15/20 03/15/20 05:48 07:00 Temp 98.4 98.4 Pulse 79 77 Resp 22 B/P (MAP) 142/65 138/63 (88) Pulse Ox 98 O2 Delivery Room Air Intake and Output 03/14/20 03/14/20 03/15/20 15:00 23:00 07:00 Intake Total 950 ml 450 ml Output Total 500 ml 920 ml 425 ml Balance -500 ml 30 ml 25 ml Justifications for Admission Other Justification Nutrition Consultation Dietary Evaluation: Recommendations by RD: Dietary education by RD, Increase Calorie Intake, Protein supplementation Comments: REC continuing renal diet adding Nepro (vanilla, mixed bennett) BID (B&D), honoring food preferences. Expected Outcomes/Goals: pt will meet >75% of needs PO Malnutrition Findings: Food and Nutrition Intake (Sev: <50% est energy req 5days Body Fat Depletion (Non Severe: Mild Depletion Weight Status: Underweight SUZAN HEARD MD Mar 15, 2020 09:05
--- NOTE | 2020-03-15 09:32 | RAD ---
EXAM: PORTABLE CHEST 1V 03/15/2020 7:00 AM CLINICAL INDICATION:Pneumothorax COMPARISON:CT chest 03/14/2020 and chest radiograph 03/14/2020 TECHNIQUE:AP upright view of the chest FINDINGS:The previously seen pleural catheter has been removed and there is a new pigtail pleural catheter terminating at the base of the right hemithorax. The small right hydropneumothorax has decreased in size with fluid component now resolved and pneumothorax decreased. Small residual right basilar lateral pneumothorax. Small left pleural effusion is unchanged. Coarse bilateral interstitial opacities, biapical pleural parenchymal scarring, and several nodular opacities in the right midlung are unchanged. Heart and mediastinum are normal. Mild subcutaneous emphysema in the right chest wall. IMPRESSION: 1. Interval replacement of right pleural catheter with decreased, small right pneumothorax and resolution of right pleural effusion. 2. Unchanged small left pleural effusion and emphysema. 3. There are several persistent nodular opacities in the right lung, as seen on CT chest. Recommend short interval follow-up CT to ensure resolution. Electronically signed by: Nina Sexton MD (03/15/2020 9:29 AM) [id number]
--- NOTE | 2020-03-15 09:50 | PDOC ---
DATE OF SERVICE DATE: 03/15/20 TIME: 09:49 SUBJECTIVE ROS Stable , looking and feeling better OBJECTIVE Vital Signs Vital Signs Date Time Temp Pulse Resp B/P (MAP) Pulse Ox O2 Delivery O2 Flow Rate FiO2 03/15/20 07:00 98.4 77 22 138/63 (88) 98 Room Air 98.4 03/14/20 08:00 2.0 I & 0 Intake and Output 03/15/20 07:00 Intake Total 1400 ml Output Total 1845 ml Balance -445 ml Intake Oral 1400 ml Output Urine Total 1650 ml Chest Tube Drainage Total 195 ml PHYSICAL EXAM Physical Exam GENERAL APPEARANCE: NAD HEENT: Eyes are sunken, sallow complexion. NECK: No increased JVD. LUNGS: Clear, non labored CARDIAC: S1S2 ABDOMEN: Scaphoid, nontender. EXTREMITIES: Diffuse muscle wasting. No edema. NEUROLOGIC: Nonfocal, nonlocalized. DIAGNOSIS/ASSESSMENT Assessment & Plan SY - stable Supportive care , I/O, avoid nephrotoxins HypoKalemia- replace as needed CKD Abnormal renal function since 2015, No interval labs in [facility] records .Echogenic and small appearing bilateral kidneys probably medical renal disease. No history of diabetes mellitus or hypertension per her report and records. Recommned fu with Renal as OP(Non urgent ) Cystic structures identified in the bilateral kidneys probably cysts. Nontraumatic spontaneous right-sided pneumothorax. likely related to chronic obstructive pulmonary disease. Anemia - Fe def , r/o causes for Fe def - per primary PRBC today per primary COMMENT/RELEVANT DATA Meds Current Medications Medications (Trade) Dose Ordered Sig/Eliza Start Time Stop Time Status Last Admin Dose Admin Acetaminophen/ Hydrocodone Bitart (Lortab 5/325) 1 tab PRN Q6HRS PRN 03/09/20 20:15 03/15/20 02:50 1 TAB Albuterol/ Ipratropium (Duoneb) 9 ml 1X ONCE 03/09/20 13:30 03/09/20 13:31 DC 03/09/20 13:52 9 ML Amitriptyline HCl (Elavil) 50 mg QHS 03/09/20 21:00 03/14/20 20:48 50 MG Aspirin (Aspirin Chewable) 324 mg 1X ONCE 03/09/20 13:30 03/09/20 13:31 DC 03/09/20 13:59 324 MG Cyanocobalamin (Vitamin B-12) 1,000 mcg DAILY 03/13/20 09:00 03/15/20 08:55 1,000 MCG Diltiazem HCl (Cardizem) 60 mg Q8HRS 03/14/20 17:00 03/15/20 05:48 60 MG Enoxaparin Sodium (Lovenox 30mg Syringe) 30 mg Q24H 03/11/20 12:00 03/13/20 12:30 30 MG Fentanyl Citrate (Fentanyl 2ml Vial) 50 mcg 1X ONCE 03/09/20 14:30 03/09/20 14:31 DC 03/09/20 14:41 50 MCG Influenza Virus Vaccine Quadrival (Fluzone Quad Syringe) 0.5 ml ONCE ONCE 03/10/20 09:00 03/10/20 09:01 DC 03/10/20 09:37 0.5 ML Lactobacillus Rhamnosus (Culturelle) 1 cap BID 03/12/20 21:00 03/15/20 08:55 1 CAP Levofloxacin/ Dextrose 100 ml @ 100 mls/hr Q48H 03/12/20 11:00 03/14/20 11:49 100 MLS/HR Levofloxacin/ Dextrose (Levaquin Per Pharmacy) 1 each PRN DAILY PRN 03/12/20 10:15 Levothyroxine Sodium (Synthroid) 88 mcg DAILY06 03/10/20 09:00 03/15/20 05:48 88 MCG Lidocaine HCl (Buffered Lidocaine 1%) 6 ml 1X ONCE 03/14/20 15:00 03/14/20 15:01 DC 03/14/20 14:40 6 ML Lidocaine HCl (Lidocaine 1% 20ml Vial) 40 ml 1X ONCE 03/09/20 14:30 03/09/20 14:31 DC 03/09/20 14:48 40 ML Lorazepam (Ativan Inj) 1 mg 1X ONCE 03/09/20 14:30 03/09/20 14:31 DC 03/09/20 14:40 1 MG Lorazepam (Ativan) 0.5 mg PRN TID PRN 03/09/20 20:15 03/15/20 00:40 0.5 MG Ondansetron HCl (Zofran Odt) 4 mg PRN Q6HRS PRN 03/12/20 14:15 03/14/20 14:04 4 MG Ondansetron HCl (Zofran) 4 mg PRN Q8HRS PRN 03/09/20 15:45 03/10/20 15:44 DC Potassium Chloride (Klor-Con) 20 meq DAILYWBKFT 03/15/20 08:00 Prednisone (Prednisone) 60 mg 1X ONCE 03/09/20 13:30 03/09/20 13:31 DC 03/09/20 14:00 60 MG Sodium Chloride 1,000 ml @ 100 mls/hr Q10H 03/09/20 20:15 03/13/20 08:48 DC 03/12/20 21:57 100 MLS/HR Lab Laboratory Tests Test 03/15/20 05:00 White Blood Count 6.3 x10^3/uL (4.0-11.0) Red Blood Count 2.17 x10^6/uL (3.50-5.40) Hemoglobin 6.7 g/dL (12.0-15.5) Hematocrit 19.4 % (36.0-47.0) Mean Corpuscular Volume 90 fL (79-100) Mean Corpuscular Hemoglobin 31 pg (25-35) Mean Corpuscular Hemoglobin Concent 34 g/dL (31-37) Red Cell Distribution Width 13.3 % (11.5-14.5) Platelet Count 197 x10^3/uL (140-400) Neutrophils (%) (Auto) 58 % (31-73) Lymphocytes (%) (Auto) 23 % (24-48) Monocytes (%) (Auto) 9 % (0-9) Eosinophils (%) (Auto) 10 % (0-3) Basophils (%) (Auto) 1 % (0-3) Neutrophils # (Auto) 3.6 x10^3/uL (1.8-7.7) Lymphocytes # (Auto) 1.4 x10^3/uL (1.0-4.8) Monocytes # (Auto) 0.5 x10^3/uL (0.0-1.1) Eosinophils # (Auto) 0.6 x10^3/uL (0.0-0.7) Basophils # (Auto) 0.0 x10^3/uL (0.0-0.2) Sodium Level 140 mmol/L (136-145) Potassium Level 4.1 mmol/L (3.5-5.1) Chloride Level 109 mmol/L (98-107) Carbon Dioxide Level 21 mmol/L (21-32) Anion Gap 10 (6-14) Blood Urea Nitrogen 27 mg/dL (7-20) Creatinine 2.8 mg/dL (0.6-1.0) Estimated GFR (Cockcroft-Gault) 17.1 Glucose Level 81 mg/dL (70-99) Calcium Level 7.7 mg/dL (8.5-10.1) Results All relevant outside records, renal labs, imaging studies, telemetry/EKG's were reviewed. Other . Interval replacement of right pleural catheter with decreased, small right pneumothorax and resolution of right pleural effusion. 2. Unchanged small left pleural effusion and emphysema. 3. There are several persistent nodular opacities in the right lung, as seen on CT chest. Recommend short interval follow-up CT to ensure resolution. Justicifation of Admission Dx: Justifications for Admission: Justification of Admission Dx: Yes MARISELA PRIETO MD Mar 15, 2020 09:50
--- NOTE | 2020-03-15 12:36 | NUR ---
SS following up with discharge planning. SS reviewed pt chart and discussed with pt RN. Pt is currently on room air. Pt has chest tube and is on IV Levaquin. PT recommended home with home healthcare. Pt reported that she is agreeable to home healthcare with [facility], ; fax [phone]. SS will continue to follow for discharge planning. Addendum: 03/15/20 at 1240 by CANDI ROBERTSON Per RN, pt hemoglobin is low today (6.7) Pt to receive blood today.
[2020-03-15] MEDS ORDERED: diphenhydrAMINE HCL 25 MG CAPSULE PO PRN (13:15)
[2020-03-15] MEDS: ENOXAPARIN 30 MG/0.3 ML SYRINGE. SQ SCH (13:20)
[2020-03-15 14:12] LABS: ALBUM 2.5 g/dL (2.9-4.4); ALPHA 1 0.2 g/dL (0.0-0.4); ALPHA 2 0.7 g/dL (0.4-1.0); BETA 0.6 g/dL (0.7-1.3); GAMMA 0.5 g/dL (0.4-1.8); PROTEIN TOTAL 4.4 g/dL (6.0-8.5); SPEP AG RATIO 1.3 (0.7-1.7)
--- NOTE | 2020-03-15 14:36 | PDOC ---
F/U PHYSCH PROG NOTE Subjective: female with history of depression and anxiety seen for routine follow- up. Progress is reviewed with nursing staff. No major emotional or behavioral breakdown reported. He states, she is feeling a lot better, mood is stable and pleasant. However, reporting some anxiety as she is receiving blood that she has never received before. Aside from that, she denies any suicidal or homicidal thoughts. Denies auditory or visual hallucinations. No evidence of rani or hypomania. Objective: 14 point review of system is otherwise negative except for stated above Vital Signs: Vital Signs Date Time Temp Pulse Resp B/P (MAP) Pulse Ox O2 Delivery O2 Flow Rate FiO2 03/15/20 14:15 98.8 75 20 151/74 98.8 03/15/20 11:15 Room Air 03/15/20 11:00 96 03/14/20 08:00 2.0 Labs: Laboratory Tests Test 03/15/20 05:00 White Blood Count 6.3 x10^3/uL (4.0-11.0) Red Blood Count 2.17 x10^6/uL (3.50-5.40) L Hemoglobin 6.7 g/dL (12.0-15.5) *L Hematocrit 19.4 % (36.0-47.0) *L Mean Corpuscular Volume 90 fL (79-100) Mean Corpuscular Hemoglobin 31 pg (25-35) Mean Corpuscular Hemoglobin Concent 34 g/dL (31-37) Red Cell Distribution Width 13.3 % (11.5-14.5) Platelet Count 197 x10^3/uL (140-400) Neutrophils (%) (Auto) 58 % (31-73) Lymphocytes (%) (Auto) 23 % (24-48) L Monocytes (%) (Auto) 9 % (0-9) Eosinophils (%) (Auto) 10 % (0-3) H Basophils (%) (Auto) 1 % (0-3) Neutrophils # (Auto) 3.6 x10^3/uL (1.8-7.7) Lymphocytes # (Auto) 1.4 x10^3/uL (1.0-4.8) Monocytes # (Auto) 0.5 x10^3/uL (0.0-1.1) Eosinophils # (Auto) 0.6 x10^3/uL (0.0-0.7) Basophils # (Auto) 0.0 x10^3/uL (0.0-0.2) Sodium Level 140 mmol/L (136-145) Potassium Level 4.1 mmol/L (3.5-5.1) Chloride Level 109 mmol/L (98-107) H Carbon Dioxide Level 21 mmol/L (21-32) Anion Gap 10 (6-14) Blood Urea Nitrogen 27 mg/dL (7-20) H Creatinine 2.8 mg/dL (0.6-1.0) H Estimated GFR (Cockcroft-Gault) 17.1 Glucose Level 81 mg/dL (70-99) Calcium Level 7.7 mg/dL (8.5-10.1) L Laboratory Tests 03/15/20 05:00 Laboratory Tests 03/15/20 05:00 Medications: Current Medications Medications (Trade) Dose Ordered Sig/Eliza Start Time Stop Time Status Last Admin Dose Admin Acetaminophen/ Hydrocodone Bitart (Lortab 5/325) 1 tab PRN Q6HRS PRN 03/09/20 20:15 03/15/20 09:54 1 TAB Albuterol/ Ipratropium (Duoneb) 9 ml 1X ONCE 03/09/20 13:30 03/09/20 13:31 DC 03/09/20 13:52 9 ML Amitriptyline HCl (Elavil) 50 mg QHS 03/09/20 21:00 03/14/20 20:48 50 MG Aspirin (Aspirin Chewable) 324 mg 1X ONCE 03/09/20 13:30 03/09/20 13:31 DC 03/09/20 13:59 324 MG Cyanocobalamin (Vitamin B-12) 1,000 mcg DAILY 03/13/20 09:00 03/15/20 08:55 1,000 MCG Diltiazem HCl (Cardizem) 60 mg Q8HRS 03/14/20 17:00 03/15/20 13:27 60 MG Diphenhydramine HCl (Benadryl) 25 mg PRN Q6HRS PRN 03/15/20 13:15 Enoxaparin Sodium (Lovenox 30mg Syringe) 30 mg Q24H 03/11/20 12:00 9/24/20 13:20 30 MG Fentanyl Citrate (Fentanyl 2ml Vial) 50 mcg 1X ONCE 03/09/20 14:30 03/09/20 14:31 DC 03/09/20 14:41 50 MCG Influenza Virus Vaccine Quadrival (Fluzone Quad [id number] Syringe) 0.5 ml ONCE ONCE 03/10/20 09:00 03/10/20 09:01 DC 03/10/20 09:37 0.5 ML Lactobacillus Rhamnosus (Culturelle) 1 cap BID 03/12/20 21:00 03/15/20 08:55 1 CAP Levofloxacin/ Dextrose 100 ml @ 100 mls/hr Q48H 03/12/20 11:00 03/14/20 11:49 100 MLS/HR Levofloxacin/ Dextrose (Levaquin Per Pharmacy) 1 each PRN DAILY PRN 03/12/20 10:15 Levothyroxine Sodium (Synthroid) 88 mcg DAILY06 03/10/20 09:00 03/15/20 05:48 88 MCG Lidocaine HCl (Buffered Lidocaine 1%) 6 ml 1X ONCE 03/14/20 15:00 03/14/20 15:01 DC 03/14/20 14:40 6 ML Lidocaine HCl (Lidocaine 1% 20ml Vial) 40 ml 1X ONCE 03/09/20 14:30 03/09/20 14:31 DC 03/09/20 14:48 40 ML Lorazepam (Ativan Inj) 1 mg 1X ONCE 03/09/20 14:30 03/09/20 14:31 DC 03/09/20 14:40 1 MG Lorazepam (Ativan) 0.5 mg PRN TID PRN 03/09/20 20:15 03/15/20 00:40 0.5 MG Ondansetron HCl (Zofran Odt) 4 mg PRN Q6HRS PRN 03/12/20 14:15 03/14/20 14:04 4 MG Ondansetron HCl (Zofran) 4 mg PRN Q8HRS PRN 03/09/20 15:45 03/10/20 15:44 DC Potassium Chloride (Klor-Con) 20 meq DAILYWBKFT 03/15/20 08:00 Prednisone (Prednisone) 60 mg 1X ONCE 03/09/20 13:30 03/09/20 13:31 DC 03/09/20 14:00 60 MG Sertraline HCl (Zoloft) 25 mg DAILY 03/15/20 15:00 Sodium Chloride 1,000 ml @ 100 mls/hr Q10H 03/09/20 20:15 03/13/20 08:48 DC 03/12/20 21:57 100 MLS/HR Physical Exam: Mental Status Exam: female appears older than her stated age. Cooperative and interactive Alert and oriented Thought processes linear and goal-directed Denies auditory or visual hallucinations. Denies suicidal or homicidal thoughts. No abnormal perception noted Mood is improving Affect is improving Insight is good Judgment is good Impulse control is good Attention span and concentration good Recent and remote memory intact. Physical Exam: Refer to Physician's note. [employer]: No focal deficit MSK: No EPS, TDK, or abnormal involuntary movements Diagnosis: Major depressive disorder, recurrent, moderate Generalized anxiety disorder Assessment: She is a 64-year-old female with prior history of depression and anxie ty overwhelmed with her unavoidable circumstances. Previously she was on Prozac however it was discontinued due to some insurance issues. Recommended her that Zoloft will be lot better for her as she is on multiple medication and Prozac can increase the drug levels of many medications while Zoloft is safer in that respect. She is in agreement with the plan and voiced understanding . Plan: Continue Zoloft 25 mg once daily for depression and anxiety. Continue other medications as prescribed. Risks, benefits, alternatives of the treatment are discussed. She is cautioned about the use of benzodiazepines and educated. She expressed understanding but anxious to discontinue. Adverse drug reaction of the medications explained in detail with black box warnings ZAHIRA DIAZ MD Mar 15, 2020 14:36
[2020-03-15] MEDS: SERTRALINE 25 MG TABLET. PO SCH (15:19)
[2020-03-15] MEDS: ONDANSETRON ODT 4 MG TAB.RAPDIS. PO PRN (17:41)
[2020-03-15] MEDS: AMITRIPTYLINE HCL 25 MG TABLET. PO SCH (20:20)
[2020-03-16] VITALS (7 sets, daily range): BP systolic 118–152; BP diastolic 59–72
[2020-03-16] MEDS: LEVOTHYROXINE 88 MCG TABLET PO SCH (06:41)
[2020-03-16] MEDS: dilTIAZem HCL 30 MG TABLET PO SCH ×3 (06:41→21:08)
--- NOTE | 2020-03-16 08:31 | PDOC ---
PULMONARY PROGRESS NOTES DATE: 03/16/20 TIME: 08:31 Subjective Patient feels better status post second chest tube placement yesterday Vitals Vital Signs Date Time Temp Pulse Resp B/P (MAP) Pulse Ox O2 Delivery O2 Flow Rate FiO2 03/16/20 07:00 98.8 72 18 126/59 (81) 96 Room Air 98.8 ROS: No Nausea, No Chest Pain, No Abdominal Pain, No Increase Cough General: Alert, Oriented X4 Lungs: Clear Cardiovascular: S1, S2 Abdomen: Soft Neuro Exam: Alert Extremities: No Edema Skin: Warm, Dry Labs Laboratory Tests Test 03/15/20 05:00 White Blood Count 6.3 x10^3/uL (4.0-11.0) Red Blood Count 2.17 x10^6/uL (3.50-5.40) Hemoglobin 6.7 g/dL (12.0-15.5) Hematocrit 19.4 % (36.0-47.0) Mean Corpuscular Volume 90 fL (79-100) Mean Corpuscular Hemoglobin 31 pg (25-35) Mean Corpuscular Hemoglobin Concent 34 g/dL (31-37) Red Cell Distribution Width 13.3 % (11.5-14.5) Platelet Count 197 x10^3/uL (140-400) Neutrophils (%) (Auto) 58 % (31-73) Lymphocytes (%) (Auto) 23 % (24-48) Monocytes (%) (Auto) 9 % (0-9) Eosinophils (%) (Auto) 10 % (0-3) Basophils (%) (Auto) 1 % (0-3) Neutrophils # (Auto) 3.6 x10^3/uL (1.8-7.7) Lymphocytes # (Auto) 1.4 x10^3/uL (1.0-4.8) Monocytes # (Auto) 0.5 x10^3/uL (0.0-1.1) Eosinophils # (Auto) 0.6 x10^3/uL (0.0-0.7) Basophils # (Auto) 0.0 x10^3/uL (0.0-0.2) Sodium Level 140 mmol/L (136-145) Potassium Level 4.1 mmol/L (3.5-5.1) Chloride Level 109 mmol/L (98-107) Carbon Dioxide Level 21 mmol/L (21-32) Anion Gap 10 (6-14) Blood Urea Nitrogen 27 mg/dL (7-20) Creatinine 2.8 mg/dL (0.6-1.0) Estimated GFR (Cockcroft-Gault) 17.1 Glucose Level 81 mg/dL (70-99) Calcium Level 7.7 mg/dL (8.5-10.1) Medications Active Scripts Medications Dose Route/Sig Max Daily Dose Days Date Category Excedrin Migraine Caplet (Aspirin/Acetaminophen/Caffeine) 1 Each Tablet 1 Each PO PRN BID PRN 03/09/20 Reported Levothyroxine Sodium 88 Mcg Tablet 1 Tab PO DAILY 03/09/20 Reported Amitriptyline Hcl 50 Mg Tablet 1 Tab PO QHS 10/14/15 Reported Hydrocodone-Apap 5-325 (Hydrocodone Bit/Acetaminophen) 1 Each Tablet 1 Tab PO PRN Q12HRS PRN 10/14/15 Reported Lorazepam 0.5 Mg Tablet 0.5 Mg PO TID PRN 10/13/15 Reported Comments Chest x-ray reviewed pneumothorax right lower chest Impression . IMPRESSION: 1. Nontraumatic spontaneous right-sided pneumothorax. This is the first time she had the pneumothorax, likely related to chronic obstructive pulmonary disease. 2. Interstitial infiltrates, more on the right than on the left. Could be related to mild re-expansion interstitial edema. 3. Underlying chronic obstructive pulmonary disease. 4. SY--- ongoing CT chest reviewed, chest tube needs to be replaced Chest x-ray Right basilar thoracostomy tube is in similar position with interval increase in right basilar pneumothorax measuring 2.2 cm pleural separation, previously 1.0 cm pleural separation. Increase in trace right pleural effusion. Similar aeration of the left lung with small left pleural effusion and adjacent compressive atelectasis versus infiltrate. Pulmonary emphysematous changes appear similar with biapical pleural-parenchymal scarring. Plan . New tube placed yesterday, now with air leak, chest x-ray has improved Repeat chest x-ray in the a.m. Continue supplemental oxygen to keep sats above 92%--- now on room air Cont. levaquin for ABX Hold of on lasix 2/2 renal function Follow Renal recommendations DVT/GI PPX D/W RN and PT. DNR DEACON HINES MD Mar 16, 2020 08:31
--- NOTE | 2020-03-16 08:47 | PDOC ---
PROGRESS NOTES Date of Service: DATE: 03/16/20 TIME: 08:45 Subjective Subjective feels better , Objective Objective Vital Signs Date Time Temp Pulse Resp B/P (MAP) Pulse Ox O2 Delivery O2 Flow Rate FiO2 03/16/20 07:00 98.8 72 18 126/59 (81) 96 Room Air 98.8 Intake and Output 03/16/20 07:00 Intake Total 1190 ml Output Total 1500 ml Balance -310 ml Intake Oral 560 ml Blood Product IV Normal Saline Flush 630 ml Output Urine Total 1500 ml Physical Exam Abdomen: Normal bowel sounds, Soft Heart: Regular rate Extremities: No clubbing General: Alert, Oriented X3 HEENT: Atraumatic Lungs: Clear to auscultation MUSCULOSKELETAL: No joint tenderness Neck: Supple Neuro: Normal speech Psych/Mental Status: Mental status NL Skin: No rashes COMMENT Rt chest tube Diagnosis Problem List Problems Medical Problems: (1) Acute renal failure Status: Acute (2) Adult failure to thrive Status: Acute (3) Anemia Status: Acute (4) Secondary spontaneous pneumothorax Status: Acute Assessment Assessment Problems Medical Problems: (1) Acute renal failure Status: Acute (2) Adult failure to thrive Status: Acute (3) Anemia Status: Acute (4) Secondary spontaneous pneumothorax Status: Acute FINAL IMPRESSION: 1. Spontaneous right Pneumothorax.worsened. 2. Chronic obstructive pulmonary disease with emphysema. 3. Chronic kidney disease, creatinine of 3. 4. Hypothyroidism. 5. Anxiety with depression. PLAN:CT chest showed, hydro pneumothorax. chest tube repositioned by IR, repeat cxr shows improvement Hb 6.7 ,transfuse 1 unit t prbc 03/15, todays labs pending may need skilled next week ,pt reluctant to go to SNU cr 2.8, stabilized sono kidneys, shows ch kidney diasese. dvt prevention. xanax+lortab. rehab consult dr jimenez. At this time, the patient was admitted to the hospital, had a chest tube placed in the Emergency Room with water seal. Patient was admitted to the second floor. Pulmonary is consulted and the patient also has kidney failure with creatinine of 3.5 and 1.5 two years ago. We will do ultrasound of the kidneys, renal consult, cautious hydration and see if that improves her renal function. Plan Plan of Care Problems Medical Problems: (1) Acute renal failure Status: Acute (2) Adult failure to thrive Status: Acute (3) Anemia Status: Acute (4) Secondary spontaneous pneumothorax Status: Acute Comment Review of Relevant I have reviewed the following items rené (where applicable) has been applied. Medications Current Medications Diphenhydramine HCl (Benadryl) 25 mg PRN Q6HRS PRN PO ITCHING; Start 03/15/20 at 13:15 Sertraline HCl (Zoloft) 25 mg DAILY PO Last administered on 03/15/20at 15:19; Start 03/15/20 at 15:00 Vitals/I & O Vital Sign - Last 24 Hours 03/15/20 03/15/20 03/15/20 03/15/20 09:54 11:00 11:15 13:00 Temp 98.5 98.5 98.5 98.5 Pulse 72 70 Resp 20 20 B/P (MAP) 110/54 (72) 125/60 Pulse Ox 96 O2 Delivery Room Air Room Air Room Air 03/15/20 03/15/20 03/15/20 03/15/20 13:15 13:27 14:15 15:00 Temp 97.5 98.8 98.1 97.5 98.8 98.1 Pulse 76 76 75 75 Resp 20 20 20 B/P (MAP) 131/63 131/63 151/74 151/74 (99) Pulse Ox 97 O2 Delivery Room Air 03/15/20 03/15/20 03/15/20 03/15/20 15:10 15:20 16:30 19:30 Temp 98.2 98.9 98.2 98.9 Pulse 78 76 Resp 19 18 B/P (MAP) 157/72 147/72 (97) Pulse Ox 96 O2 Delivery Room Air Room Air Room Air 03/15/20 03/15/20 03/15/20 03/16/20 19:54 20:21 22:30 02:47 Temp 98.2 98.6 98.2 98.6 Pulse 76 73 70 Resp 18 18 B/P (MAP) 147/72 153/73 (99) 147/68 (94) Pulse Ox 96 96 O2 Delivery Room Air Room Air Room Air 03/16/20 03/16/20 06:41 07:00 Temp 98.8 98.8 Pulse 70 72 Resp 18 B/P (MAP) 147/68 126/59 (81) Pulse Ox 96 O2 Delivery Room Air Intake and Output 03/15/20 03/15/20 03/16/20 15:00 23:00 07:00 Intake Total 610 ml 580 ml 0 ml Output Total 1200 ml 300 ml Balance -590 ml 280 ml 0 ml Justifications for Admission Other Justification Nutrition Consultation Dietary Evaluation: Recommendations by RD: Dietary education by RD, Increase Calorie Intake, Prot ein supplementation Comments: REC continuing renal diet adding Nepro (vanilla, mixed bennett) BID (B&D), honoring food preferences. Expected Outcomes/Goals: pt will meet >75% of needs PO Malnutrition Findings: Food and Nutrition Intake (Sev: <50% est energy req 5days Body Fat Depletion (Non Severe: Mild Depletion Weight Status: Underweight SUZAN HEARD MD Mar 16, 2020 08:47
[2020-03-16] MEDS: POTASSIUM CHLORIDE 20 MEQ TABLET.ER. PO SCH (09:05)
[2020-03-16] MEDS: SERTRALINE 25 MG TABLET. PO SCH (09:05)
[2020-03-16] MEDS: LACTOBACILLUS RHAMNOSUS GG 1 CAPSULE. PO SCH ×2 (09:05→21:08)
[2020-03-16] MEDS: CYANOCOBALAMIN (VITAMIN B-12) 1,000 MCG/ML VIAL IM SCH (09:08)
--- NOTE | 2020-03-16 09:40 | RAD ---
PORTABLE CHEST 1V 03/16/2020 9:00 AM INDICATION: Pneumothorax COMPARISON: 03/15/2020 TECHNIQUE: Portable frontal view of the chest is provided. FINDINGS: The cardiomediastinal silhouette is within normal limits. Bibasilar thoracostomy tube is in similar position. There is a persistent right apical pneumothorax with 8 mm pleural separation, stable. Right chest wall subcutaneous emphysema is identified. Coarse interstitial changes are identified throughout the lungs. There is a nodular opacity in the right midlung measuring 11 mm. Pulmonary emphysema present. No suspicious osseous abnormality. IMPRESSION: Persistent right apical pneumothorax with a millimeters pleural separation. There is a millimeter nodular opacity in the right midlung. Attention on follow-up exams is recommended to ensure resolution. COPD changes are present with coarse interstitial changes and pulmonary emphysema. Electronically signed by: Krista Painter MD (03/16/2020 9:37 AM) [id number]
[2020-03-16 09:43] LABS: BASO % 1 % (0-3); EOS # 0.9 x10^3/uL (0.0-0.7); EOS % 15 % (0-3); HEMATOCRIT 30.1 % (36.0-47.0); HEMOGLOBIN 9.9 g/dL (12.0-15.5); LYMPH % 17 % (24-48); MEAN CORPUSCULAR HEMOGLOBIN 30 pg (25-35); MEAN CORPUSCULAR HGB CONC 33 g/dL (31-37); MEAN CORPUSCULAR VOLUME 90 fL (79-100); MONO # 0.4 x10^3/uL (0.0-1.1); MONO % 7 % (0-9); NEUT # 3.7 x10^3/uL (1.8-7.7); NEUT % 61 % (31-73); PLATELET COUNT 240 x10^3/uL (140-400); RED BLOOD COUNT 3.36 x10^6/uL (3.50-5.40); RED CELL DISTRIBUTION WIDTH 13.8 % (11.5-14.5); WHITE BLOOD COUNT 6.1 x10^3/uL (4.0-11.0)
[2020-03-16 09:49] LABS: CALCIUM 8.4 mg/dL (8.5-10.1); GFR 15.8; POTASSIUM 4.2 mmol/L (3.5-5.1)
--- NOTE | 2020-03-16 10:51 | PDOC ---
DATE OF SERVICE DATE: 03/16/20 TIME: 10:50 SUBJECTIVE ROS Stable OBJECTIVE Vital Signs Vital Signs Date Time Temp Pulse Resp B/P (MAP) Pulse Ox O2 Delivery O2 Flow Rate FiO2 03/16/20 10:32 98.6 86 18 135/60 (85) 97 Room Air 98.6 I & 0 Intake and Output 03/16/20 07:00 Intake Total 1190 ml Output Total 1500 ml Balance -310 ml Intake Oral 560 ml Blood Product IV Normal Saline Flush 630 ml Output Urine Total 1500 ml PHYSICAL EXAM Physical Exam GENERAL APPEARANCE: NAD HEENT: Eyes are sunken, sallow complexion. NECK: No increased JVD. LUNGS: Clear, non labored CARDIAC: S1S2 ABDOMEN: Scaphoid, nontender. EXTREMITIES: Diffuse muscle wasting. No edema. NEUROLOGIC: Nonfocal, nonlocalized. DIAGNOSIS/ASSESSMENT Assessment & Plan SY - Improved, worsening again vs new baseline IVF , Supportive care , I/O, avoid nephrotoxins HypoKalemia- replace as needed CKD Abnormal renal function since 2016, No interval labs in [facility] records .Echogenic and small appearing bilateral kidneys probably medical renal disease. No history of diabetes mellitus or hypertension per her report and records. Recommned fu with Renal as OP(Non urgent ) Cystic structures identified in the bilateral kidneys probably cysts. Nontraumatic spontaneous right-sided pneumothorax. likely related to chronic obstructive pulmonary disease. Anemia - Fe def , r/o causes for Fe def - per primary PRBC on 03/15 , per primary COMMENT/RELEVANT DATA Meds Current Medications Medications (Trade) Dose Ordered Sig/Eliza Start Time Stop Time Status Last Admin Dose Admin Acetaminophen/ Hydrocodone Bitart (Lortab 5/325) 1 tab PRN Q6HRS PRN 03/09/20 20:15 03/15/20 15:20 1 TAB Albuterol/ Ipratropium (Duoneb) 9 ml 1X ONCE 03/09/20 13:30 03/09/20 13:31 DC 03/09/20 13:52 9 ML Amitriptyline HCl (Elavil) 50 mg QHS 03/09/20 21:00 03/15/20 20:20 50 MG Aspirin (Aspirin Chewable) 324 mg 1X ONCE 03/09/20 13:30 03/09/20 13:31 DC 03/09/20 13:59 324 MG Cyanocobalamin (Vitamin B-12) 1,000 mcg DAILY 03/13/20 09:00 03/16/20 09:08 1,000 MCG Diltiazem HCl (Cardizem) 60 mg Q8HRS 03/14/20 17:00 03/16/20 06:41 60 MG Diphenhydramine HCl (Benadryl) 25 mg PRN Q6HRS PRN 03/15/20 13:15 Enoxaparin Sodium (Lovenox 30mg Syringe) 30 mg Q24H 03/11/20 12:00 03/15/20 13:20 30 MG Fentanyl Citrate (Fentanyl 2ml Vial) 50 mcg 1X ONCE 03/09/20 14:30 03/09/20 14:31 DC 03/09/20 14:41 50 MCG Influenza Virus Vaccine Quadrival (Fluzone Quad Syringe) 0.5 ml ONCE ONCE 03/10/20 09:00 03/10/20 09:01 DC 03/10/20 09:37 0.5 ML Lactobacillus Rhamnosus (Culturelle) 1 cap BID 03/12/20 21:00 03/16/20 09:05 1 CAP Levofloxacin/ Dextrose 100 ml @ 100 mls/hr Q48H 03/12/20 11:00 03/14/20 11:49 100 MLS/HR Levofloxacin/ Dextrose (Levaquin Per Pharmacy) 1 each PRN DAILY PRN 03/12/20 10:15 Levothyroxine Sodium (Synthroid) 88 mcg DAILY06 03/10/20 09:00 03/16/20 06:41 88 MCG Lidocaine HCl (Buffered Lidocaine 1%) 6 ml 1X ONCE 03/14/20 15:00 03/14/20 15:01 DC 03/14/20 14:40 6 ML Lidocaine HCl (Lidocaine 1% 20ml Vial) 40 ml 1X ONCE 03/09/20 14:30 03/09/20 14:31 DC 03/09/20 14:48 40 ML Lorazepam (Ativan Inj) 1 mg 1X ONCE 03/09/20 14:30 03/09/20 14:31 DC 03/09/20 14:40 1 MG Lorazepam (Ativan) 0.5 mg PRN TID PRN 03/09/20 20:15 03/15/20 20:21 0.5 MG Ondansetron HCl (Zofran Odt) 4 mg PRN Q6HRS PRN 03/12/20 14:15 03/15/20 17:41 4 MG Ondansetron HCl (Zofran) 4 mg PRN Q8HRS PRN 03/09/20 15:45 03/10/20 15:44 DC Potassium Chloride (Klor-Con) 20 meq DAILYWBKFT 03/15/20 08:00 03/16/20 09:05 20 MEQ Prednisone (Prednisone) 60 mg 1X ONCE 03/09/20 13:30 03/09/20 13:31 DC 03/09/20 14:00 60 MG Sertraline HCl (Zoloft) 25 mg DAILY 03/15/20 15:00 03/16/20 09:05 25 MG Sodium Chloride 1,000 ml @ 100 mls/hr Q10H 03/09/20 20:15 03/13/20 08:48 DC 03/12/20 21:57 100 MLS/HR Lab Laboratory Tests Test 03/16/20 09:12 White Blood Count 6.1 x10^3/uL (4.0-11.0) Red Blood Count 3.36 x10^6/uL (3.50-5.40) Hemoglobin 9.9 g/dL (12.0-15.5) Hematocrit 30.1 % (36.0-47.0) Mean Corpuscular Volume 90 fL (79-100) Mean Corpuscular Hemoglobin 30 pg (25-35) Mean Corpuscular Hemoglobin Concent 33 g/dL (31-37) Red Cell Distribution Width 13.8 % (11.5-14.5) Platelet Count 240 x10^3/uL (140-400) Neutrophils (%) (Auto) 61 % (31-73) Lymphocytes (%) (Auto) 17 % (24-48) Monocytes (%) (Auto) 7 % (0-9) Eosinophils (%) (Auto) 15 % (0-3) Basophils (%) (Auto) 1 % (0-3) Neutrophils # (Auto) 3.7 x10^3/uL (1.8-7.7) Lymphocytes # (Auto) 1.0 x10^3/uL (1.0-4.8) Monocytes # (Auto) 0.4 x10^3/uL (0.0-1.1) Eosinophils # (Auto) 0.9 x10^3/uL (0.0-0.7) Basophils # (Auto) 0.0 x10^3/uL (0.0-0.2) Sodium Level 138 mmol/L (136-145) Potassium Level 4.2 mmol/L (3.5-5.1) Chloride Level 106 mmol/L (98-107) Carbon Dioxide Level 25 mmol/L (21-32) Anion Gap 7 (6-14) Blood Urea Nitrogen 28 mg/dL (7-20) Creatinine 3.0 mg/dL (0.6-1.0) Estimated GFR (Cockcroft-Gault) 15.8 Glucose Level 131 mg/dL (70-99) Calcium Level 8.4 mg/dL (8.5-10.1) Results All relevant outside records, renal labs, imaging studies, telemetry/EKG's were reviewed. Justicifation of Admission Dx: Justifications for Admission: Justification of Admission Dx: Yes MARISELA PRIETO MD Mar 16, 2020 10:51
[2020-03-16] MEDS: LORazepam 0.5 MG TABLET PO PRN ×2 (10:58→21:09)
[2020-03-16] MEDS: ENOXAPARIN 30 MG/0.3 ML SYRINGE. SQ SCH (10:59)
[2020-03-16] MEDS: IV NORMAL SALINE 1000ML BAG 1,000 ML IV SCH (11:16)
--- NOTE | 2020-03-16 11:53 | NUR ---
SS following up with discharge planning. SS reviewed pt chart and discussed with pt RN. Pt is currently on room air. Chest tube remains at this time. Pt on IV Levaquin. PT recommended home with home healthcare and pt agreeable to [facility], ; fax [phone]. Pt requesting to return to home. SS will continue to follow for discharge planning.
--- NOTE | 2020-03-16 14:48 | PDOC ---
PULMONARY PROGRESS NOTES DATE: 03/16/20 TIME: 14:46 Subjective Patient remains on room air with chest tube in place Afebrile overnight denies any shortness of breath, chest pain, increased cough, No overnight concerns from nursing Vitals Vital Signs Date Time Temp Pulse Resp B/P (MAP) Pulse Ox O2 Delivery O2 Flow Rate FiO2 03/16/20 14:37 98.6 86 18 141/70 (93) 96 Room Air 98.6 ROS: No Nausea, No Chest Pain, No Abdominal Pain, No Increase Cough General: Alert, Oriented X4 Lungs: Clear Cardiovascular: S1, S2 Abdomen: Soft Neuro Exam: Alert Extremities: No Edema Skin: Warm, Dry Labs Laboratory Tests Test 03/15/20 05:00 03/16/20 09:12 White Blood Count 6.3 x10^3/uL (4.0-11.0) 6.1 x10^3/uL (4.0-11.0) Red Blood Count 2.17 x10^6/uL (3.50-5.40) 3.36 x10^6/uL (3.50-5.40) Hemoglobin 6.7 g/dL (12.0-15.5) 9.9 g/dL (12.0-15.5) Hematocrit 19.4 % (36.0-47.0) 30.1 % (36.0-47.0) Mean Corpuscular Volume 90 fL (79-100) 90 fL (79-100) Mean Corpuscular Hemoglobin 31 pg (25-35) 30 pg (25-35) Mean Corpuscular Hemoglobin Concent 34 g/dL (31-37) 33 g/dL (31-37) Red Cell Distribution Width 13.3 % (11.5-14.5) 13.8 % (11.5-14.5) Platelet Count 197 x10^3/uL (140-400) 240 x10^3/uL (140-400) Neutrophils (%) (Auto) 58 % (31-73) 61 % (31-73) Lymphocytes (%) (Auto) 23 % (24-48) 17 % (24-48) Monocytes (%) (Auto) 9 % (0-9) 7 % (0-9) Eosinophils (%) (Auto) 10 % (0-3) 15 % (0-3) Basophils (%) (Auto) 1 % (0-3) 1 % (0-3) Neutrophils # (Auto) 3.6 x10^3/uL (1.8-7.7) 3.7 x10^3/uL (1.8-7.7) Lymphocytes # (Auto) 1.4 x10^3/uL (1.0-4.8) 1.0 x10^3/uL (1.0-4.8) Monocytes # (Auto) 0.5 x10^3/uL (0.0-1.1) 0.4 x10^3/uL (0.0-1.1) Eosinophils # (Auto) 0.6 x10^3/uL (0.0-0.7) 0.9 x10^3/uL (0.0-0.7) Basophils # (Auto) 0.0 x10^3/uL (0.0-0.2) 0.0 x10^3/uL (0.0-0.2) Sodium Level 140 mmol/L (136-145) 138 mmol/L (136-145) Potassium Level 4.1 mmol/L (3.5-5.1) 4.2 mmol/L (3.5-5.1) Chloride Level 109 mmol/L (98-107) 106 mmol/L (98-107) Carbon Dioxide Level 21 mmol/L (21-32) 25 mmol/L (21-32) Anion Gap 10 (6-14) 7 (6-14) Blood Urea Nitrogen 27 mg/dL (7-20) 28 mg/dL (7-20) Creatinine 2.8 mg/dL (0.6-1.0) 3.0 mg/dL (0.6-1.0) Estimated GFR (Cockcroft-Gault) 17.1 15.8 Glucose Level 81 mg/dL (70-99) 131 mg/dL (70-99) Calcium Level 7.7 mg/dL (8.5-10.1) 8.4 mg/dL (8.5-10.1) Laboratory Tests Test 03/16/20 09:12 White Blood Count 6.1 x10^3/uL (4.0-11.0) Red Blood Count 3.36 x10^6/uL (3.50-5.40) Hemoglobin 9.9 g/dL (12.0-15.5) Hematocrit 30.1 % (36.0-47.0) Mean Corpuscular Volume 90 fL (79-100) Mean Corpuscular Hemoglobin 30 pg (25-35) Mean Corpuscular Hemoglobin Concent 33 g/dL (31-37) Red Cell Distribution Width 13.8 % (11.5-14.5) Platelet Count 240 x10^3/uL (140-400) Neutrophils (%) (Auto) 61 % (31-73) Lymphocytes (%) (Auto) 17 % (24-48) Monocytes (%) (Auto) 7 % (0-9) Eosinophils (%) (Auto) 15 % (0-3) Basophils (%) (Auto) 1 % (0-3) Neutrophils # (Auto) 3.7 x10^3/uL (1.8-7.7) Lymphocytes # (Auto) 1.0 x10^3/uL (1.0-4.8) Monocytes # (Auto) 0.4 x10^3/uL (0.0-1.1) Eosinophils # (Auto) 0.9 x10^3/uL (0.0-0.7) Basophils # (Auto) 0.0 x10^3/uL (0.0-0.2) Sodium Level 138 mmol/L (136-145) Potassium Level 4.2 mmol/L (3.5-5.1) Chloride Level 106 mmol/L (98-107) Carbon Dioxide Level 25 mmol/L (21-32) Anion Gap 7 (6-14) Blood Urea Nitrogen 28 mg/dL (7-20) Creatinine 3.0 mg/dL (0.6-1.0) Estimated GFR (Cockcroft-Gault) 15.8 Glucose Level 131 mg/dL (70-99) Calcium Level 8.4 mg/dL (8.5-10.1) Medications Active Scripts Medications Dose Route/Sig Max Daily Dose Days Date Category Excedrin Migraine Caplet (Aspirin/Acetaminophen/Caffeine) 1 Each Tablet 1 Each PO PRN BID PRN 03/09/20 Reported Levothyroxine Sodium 88 Mcg Tablet 1 Tab PO DAILY 03/09/20 Reported Amitriptyline Hcl 50 Mg Tablet 1 Tab PO QHS 10/14/15 Reported Hydrocodone-Apap 5-325 (Hydrocodone Bit/Acetaminophen) 1 Each Tablet 1 Tab PO PRN Q12HRS PRN 10/14/15 Reported Lorazepam 0.5 Mg Tablet 0.5 Mg PO TID PRN 10/13/15 Reported Comments IMPRESSION: Persistent right apical pneumothorax with a millimeters pleural separation. There is a millimeter nodular opacity in the right midlung. Attention on follow-up exams is recommended to ensure resolution. COPD changes are present with coarse interstitial changes and pulmonary emphysema Impression . IMPRESSION: 1. Nontraumatic spontaneous right-sided pneumothorax. This is the first time she had the pneumothorax, likely related to chronic obstructive pulmonary disease. 2. Interstitial infiltrates, more on the right than on the left. Could be related to mild re-expansion interstitial edema. 3. Underlying chronic obstructive pulmonary disease. 4. SY--- ongoing CT chest reviewed, chest tube needs to be replaced Chest x-ray Right basilar thoracostomy tube is in similar position with interval increase in right basilar pneumothorax measuring 2.2 cm pleural separation, previously 1.0 cm pleural separation. Increase in trace right pleural effusion. Similar aeration of the left lung with small left pleural effusion and adjacent compressive atelectasis versus infiltrate. Pulmonary emphysematous changes appear similar with biapical pleural-parenchymal scarring. Plan . Chest tube placed was replaced yesterday on 03/15/2020, chest tube continues to have air leak on cough will continue chest tube to suction Follow chest x-rays Continue supplemental oxygen to keep sats above 92%--- now on room air Cont. levaquin for ABX Follow Renal recommendations PT/OT D/W RN DNR DEACON HINES MD Mar 16, 2020 14:48
[2020-03-16] MEDS: HYDROcodone/APAP 5/325MG 1 TAB TABLET PO PRN (15:42)
--- NOTE | 2020-03-16 16:16 | NUR ---
Have reviewed and agree with documentation completed by multicultural internship and have made changes as needed
[2020-03-16] MEDS: AMITRIPTYLINE HCL 25 MG TABLET. PO SCH (21:09)
[2020-03-17] VITALS (7 sets, daily range): BP systolic 121–153; BP diastolic 57–73
[2020-03-17] MEDS: IV NORMAL SALINE 1000ML BAG 1,000 ML IV SCH ×2 (02:09→13:21)
[2020-03-17] MEDS: HYDROcodone/APAP 5/325MG 1 TAB TABLET PO PRN ×2 (04:33→10:10)
[2020-03-17] MEDS: LEVOTHYROXINE 88 MCG TABLET PO SCH (05:44)
[2020-03-17] MEDS: dilTIAZem HCL 30 MG TABLET PO SCH ×3 (05:45→21:44)
[2020-03-17] MEDS: POTASSIUM CHLORIDE 20 MEQ TABLET.ER. PO SCH (08:00)
--- NOTE | 2020-03-17 08:09 | RAD ---
Exam performed: One view chest HISTORY: Pneumothorax. DATE OF SERVICE: 03/17/2020. COMPARISON: 03/16/2020 Single AP upright portable view chest findings: Heart size and mediastinal silhouette is within limits of normal. A pigtail catheter is seen projecting in the right lung base. There is a unchanged tiny left pleural effusion. Tiny persistent right apical pneumothorax redemonstrated. Coarse interstitial markings are seen in both lungs, possibly chronic with bilateral emphysematous changes. Previously seen nodular opacity in the right midlung is less distinctly visualized. Mild right chest wall serpiginous emphysema. IMPRESSION: Persistent however improved right apical pneumothorax with a right sided pigtail catheter. Previously seen nodular opacity in the right midlung is less distinctly visualized Tiny left pleural effusion or pleural thickening is unchanged Electronically signed by: Tari De Guzman MD (03/17/2020 8:05 AM) [id number]
[2020-03-17] MEDS: SERTRALINE 25 MG TABLET. PO SCH (08:30)
[2020-03-17] MEDS: LACTOBACILLUS RHAMNOSUS GG 1 CAPSULE. PO SCH ×2 (08:30→21:45)
[2020-03-17] MEDS: CYANOCOBALAMIN (VITAMIN B-12) 1,000 MCG/ML VIAL IM SCH (08:30)
[2020-03-17] MEDS: LORazepam 0.5 MG TABLET PO PRN ×3 (09:34→21:47)
--- NOTE | 2020-03-17 10:14 | PDOC ---
IM PROGRESS NOTES- Subjective Subjective c/o pain,constipation. Objective Vitals/I&O Vital Signs Date Time Temp Pulse Resp B/P (MAP) Pulse Ox O2 Delivery O2 Flow Rate FiO2 03/17/20 07:00 98.3 71 20 129/62 (84) 93 Room Air 98.3 I & O 03/16/20 03/16/20 03/17/20 15:00 23:00 07:00 Intake Total 350 ml 860 ml 1180 ml Output Total 3000 ml 1400 ml 400 ml Balance -2650 ml -540 ml 780 ml Physical Exam Physical Exam General appearance - alert,ill appearing, and in no distress and oriented to person, place, and time, thin Mental Status - alert, oriented Chest -decreased breath sounds at bases, chest tube right lung Heart - S1 and S2 normal Abdomen - soft, nontender Neurological - alert and oriented Extremities - no pedal edema Skin - warm and dry Meds Current Medications Medications (Trade) Dose Ordered Sig/Eliza Route PRN Reason Start Time Stop Time Status Last Admin Dose Admin Sodium Chloride 1,000 ml @ 75 mls/hr [id number] IV 03/16/20 11:00 03/17/20 02:09 Assessment Assessment Problems Medical Problems: (1) Acute renal failure Status: Acute (2) Adult failure to thrive Status: Acute (3) Anemia Status: Acute (4) Secondary spontaneous pneumothorax Status: Acute FINAL IMPRESSION: 1. Spontaneous right Pneumothorax.worsened. 2. Chronic obstructive pulmonary disease with emphysema. 3. Chronic kidney disease, creatinine of 3. 4. Hypothyroidism. 5. Anxiety with depression. PLAN: CT chest showed, hydro pneumothorax. chest tube repositioned by IR, repeat cxr shows improvement Hb 6.7 ,transfuse 1 unit t prbc 03/15, todays labs pending may need skilled next week ,pt reluctant to go to SNU cr 2.8, stabilized sono kidneys, shows ch kidney diasese. dvt prevention. xanax+lortab. rehab consult dr jimenez. Plan Patient has a chest tube in the right lung. Last creatinine is 3. Hemoglobin has improved to 9.9 yesterday recheck CBC BMP in a.m. Continue chest tube management. start Miralax. Plan Plan For more details regarding further plans, please refer to the orders. Justifications for Admission Other Justification Nutrition Consultation Dietary Evaluation: Recommendations by RD: Dietary education by RD, Increase Calorie Intake, Protein supplementation Comments: REC continuing renal diet with Nepro (vanilla) BID (B&D), honoring food preferences. Expected Outcomes/Goals: pt will meet >75% of needs PO- goal ongoing Malnutrition Findings: Food and Nutrition Intake (Sev: <50% est energy req 5days Body Fat Depletion (Non Severe: Mild Depletion Weight Status: Underweight ZAKIYA LEVY MD Mar 17, 2020 10:14
--- NOTE | 2020-03-17 11:48 | PDOC ---
PULMONARY PROGRESS NOTES DATE: 03/17/20 TIME: 11:44 Subjective Patient remains on room air with chest tube in place Chest tube continues to have persistent air leak Afebrile overnight denies any shortness of breath, chest pain, increased cough, No overnight concerns from nursing Vitals Vital Signs Date Time Temp Pulse Resp B/P (MAP) Pulse Ox O2 Delivery O2 Flow Rate FiO2 03/17/20 10:59 98.5 76 20 121/57 (78) 97 Room Air 98.5 03/17/20 10:10 2.0 ROS: No Nausea, No Chest Pain, No Abdominal Pain, No Increase Cough General: Alert, Oriented X4 Lungs: Clear Cardiovascular: S1, S2 Abdomen: Soft Neuro Exam: Alert Extremities: No Edema Skin: Warm, Dry Labs Laboratory Tests Test 03/16/20 09:12 White Blood Count 6.1 x10^3/uL (4.0-11.0) Red Blood Count 3.36 x10^6/uL (3.50-5.40) Hemoglobin 9.9 g/dL (12.0-15.5) Hematocrit 30.1 % (36.0-47.0) Mean Corpuscular Volume 90 fL (79-100) Mean Corpuscular Hemoglobin 30 pg (25-35) Mean Corpuscular Hemoglobin Concent 33 g/dL (31-37) Red Cell Distribution Width 13.8 % (11.5-14.5) Platelet Count 240 x10^3/uL (140-400) Neutrophils (%) (Auto) 61 % (31-73) Lymphocytes (%) (Auto) 17 % (24-48) Monocytes (%) (Auto) 7 % (0-9) Eosinophils (%) (Auto) 15 % (0-3) Basophils (%) (Auto) 1 % (0-3) Neutrophils # (Auto) 3.7 x10^3/uL (1.8-7.7) Lymphocytes # (Auto) 1.0 x10^3/uL (1.0-4.8) Monocytes # (Auto) 0.4 x10^3/uL (0.0-1.1) Eosinophils # (Auto) 0.9 x10^3/uL (0.0-0.7) Basophils # (Auto) 0.0 x10^3/uL (0.0-0.2) Sodium Level 138 mmol/L (136-145) Potassium Level 4.2 mmol/L (3.5-5.1) Chloride Level 106 mmol/L (98-107) Carbon Dioxide Level 25 mmol/L (21-32) Anion Gap 7 (6-14) Blood Urea Nitrogen 28 mg/dL (7-20) Creatinine 3.0 mg/dL (0.6-1.0) Estimated GFR (Cockcroft-Gault) 15.8 Glucose Level 131 mg/dL (70-99) Calcium Level 8.4 mg/dL (8.5-10.1) Medications Active Scripts Medications Dose Route/Sig Max Daily Dose Days Date Category Excedrin Migraine Caplet (Aspirin/Acetaminophen/Caffeine) 1 Each Tablet 1 Each PO PRN BID PRN 03/09/20 Reported Levothyroxine Sodium 88 Mcg Tablet 1 Tab PO DAILY 03/09/20 Reported Amitriptyline Hcl 50 Mg Tablet 1 Tab PO QHS 10/14/15 Reported Hydrocodone-Apap 5-325 (Hydrocodone Bit/Acetaminophen) 1 Each Tablet 1 Tab PO PRN Q12HRS PRN 10/14/15 Reported Lorazepam 0.5 Mg Tablet 0.5 Mg PO TID PRN 10/13/15 Reported Comments CXR 03/17/20 IMPRESSION: Persistent however improved right apical pneumothorax with a right sided pigtail catheter. Previously seen nodular opacity in the right midlung is less distinctly visualized Tiny left pleural effusion or pleural thickening is unchanged CT chest CT chest reviewed, chest tube needs to be replaced Chest x-ray Right basilar thoracostomy tube is in similar position with interval increase in right basilar pneumothorax measuring 2.2 cm pleural separation, previously 1.0 cm pleural separation. Increase in trace right pleural effusion. Similar aeration of the left lung with small left pleural effusion and adjacent compressive atelectasis versus infiltrate. Pulmonary emphysematous changes appear similar with biapical pleural-parenchymal scarring. Impression . IMPRESSION: 1. Nontraumatic spontaneous right-sided pneumothorax. This is the first time she had the pneumothorax, likely related to chronic obstructive pulmonary disease. 2. Interstitial infiltrates, more on the right than on the left. Could be related to mild re-expansion interstitial edema. 3. Underlying chronic obstructive pulmonary disease. 4. SY--- ongoing Plan . Chest tube placed was replaced on 03/15/2020, chest tube continues to have persistent air leak on cough will continue chest tube to suction Follow chest x-rays daily Continue supplemental oxygen to keep sats above 92%--- now on room air D/C levaquin Follow Renal recommendations PT/OT DVT/GI PPX D/W RN DNR DEACON HINES MD Mar 17, 2020 11:48
[2020-03-17] MEDS: ENOXAPARIN 30 MG/0.3 ML SYRINGE. SQ SCH (12:06)
[2020-03-17] MEDS: POLYETHYLENE GLYCOL 3350 17 GM PACKET. PO SCH (12:06)
[2020-03-17] MEDS: PANTOPRAZOLE 40 MG TABLET.DR. PO SCH (12:06)
--- NOTE | 2020-03-17 12:31 | PDOC ---
DATE OF SERVICE: DOS: DATE: 03/17/20 TIME: 12:30 SUBJECTIVE ROS Follow-up for acute kidney injury: Patient denies any new complaints. She is not aware of known kidney problems per se. She claims she is urinating well. Urine output not well documented. CVS: no Orthopnea, no CP RESP: no SOB, no BRUNER GI: no Nausea, no Vomiting : no Dysuria, no Urgency OBJECTIVE Vital Signs Vital Signs Date Time Temp Pulse Resp B/P (MAP) Pulse Ox O2 Delivery O2 Flow Rate FiO2 03/17/20 11:10 97 Room Air 2.0 03/17/20 10:59 98.5 76 20 121/57 (78) 98.5 I & 0 Intake and Output 03/17/20 07:00 Intake Total 2390 ml Output Total 4800 ml Balance -2410 ml Intake Oral 1410 ml IV Total 980 ml Output Urine Total 4650 ml Chest Tube Drainage Total 150 ml # Voids 1 PHYSICAL EXAM Physical Exam GENERAL APPEARANCE: NAD awake alert and oriented x3 HEENT: Eyes are sunken, appears somewhat pale NECK: No increased JVD. LUNGS: Clear, non labored right-sided chest tube in place CARDIAC: S1S2 ABDOMEN: Scaphoid, nontender. No CVA tenderness EXTREMITIES: Diffuse muscle wasting. No edema. NEUROLOGIC: Nonfocal, nonlocalized. DIAGNOSIS/ASSESSMENT Assessment & Plan SY -process etiology unclear. Urine was benign on most recent check. We will recheck the same. She is not aware of known chronic kidney disease however she does appear to have smallish kidneys on sonogram. Continue IV fluids as ordered HypoKalemia- replace as needed Possible underlying CKD with ultrasound showing .Echogenic and small appearing bilateral kidneys probably medical renal disease. Will need fu with Renal as OP(Non urgent ) Cystic structures identified in the bilateral kidneys probably cysts. Follow- up as outpatient Nontraumatic spontaneous right-sided pneumothorax. likely related to chronic obstructive pulmonary disease. Anemia - Fe def: IV iron as ordered COMMENT/RELEVANT DATA Meds Current Medications Medications (Trade) Dose Ordered Sig/Eliza Start Time Stop Time Status Last Admin Dose Admin Acetaminophen/ Aspirin/Caffeine (Excedrin Migraine) 1 tab PRN Q6HRS PRN 03/17/20 10:00 Acetaminophen/ Hydrocodone Bitart (Lortab 5/325) 1 tab PRN Q6HRS PRN 03/09/20 20:15 9/26/20 10:10 1 TAB Albuterol/ Ipratropium (Duoneb) 9 ml 1X ONCE 03/09/20 13:30 03/09/20 13:31 DC 03/09/20 13:52 9 ML Amitriptyline HCl (Elavil) 50 mg QHS 03/09/20 21:00 03/16/20 21:09 50 MG Aspirin (Aspirin Chewable) 324 mg 1X ONCE 03/09/20 13:30 03/09/20 13:31 DC 03/09/20 13:59 324 MG Cyanocobalamin (Vitamin B-12) 1,000 mcg DAILY 03/13/20 09:00 03/17/20 08:30 1,000 MCG Diltiazem HCl (Cardizem) 60 mg Q8HRS 03/14/20 17:00 03/17/20 05:45 60 MG Diphenhydramine HCl (Benadryl) 25 mg PRN Q6HRS PRN 03/15/20 13:15 Enoxaparin Sodium (Lovenox 30mg Syringe) 30 mg Q24H 03/11/20 12:00 03/17/20 12:06 30 MG Fentanyl Citrate (Fentanyl 2ml Vial) 50 mcg 1X ONCE 03/09/20 14:30 03/09/20 14:31 DC 03/09/20 14:41 50 MCG Influenza Virus Vaccine Quadrival (Fluzone Quad Syringe) 0.5 ml ONCE ONCE 03/10/20 09:00 03/10/20 09:01 DC 03/10/20 09:37 0.5 ML Lactobacillus Rhamnosus (Culturelle) 1 cap BID 03/12/20 21:00 03/17/20 08:30 1 CAP Levofloxacin/ Dextrose 100 ml @ 100 mls/hr Q48H 03/12/20 11:00 03/17/20 12:20 DC 03/16/20 10:53 100 MLS/HR Levofloxacin/ Dextrose (Levaquin Per Pharmacy) 1 each PRN DAILY PRN 03/12/20 10:15 03/17/20 12:20 DC Levothyroxine Sodium (Synthroid) 88 mcg DAILY06 03/10/20 09:00 03/17/20 05:44 88 MCG Lidocaine HCl (Buffered Lidocaine 1%) 6 ml 1X ONCE 03/14/20 15:00 03/14/20 15:01 DC 03/14/20 14:40 6 ML Lidocaine HCl (Lidocaine 1% 20ml Vial) 40 ml 1X ONCE 03/09/20 14:30 03/09/20 14:31 DC 03/09/20 14:48 40 ML Lorazepam (Ativan Inj) 1 mg 1X ONCE 03/09/20 14:30 03/09/20 14:31 DC 03/09/20 14:40 1 MG Lorazepam (Ativan) 0.5 mg PRN TID PRN 03/09/20 20:15 03/17/20 09:34 0.5 MG Ondansetron HCl (Zofran Odt) 4 mg PRN Q6HRS PRN 03/12/20 14:15 03/15/20 17:41 4 MG Ondansetron HCl (Zofran) 4 mg PRN Q8HRS PRN 03/09/20 15:45 03/10/20 15:44 DC Pantoprazole Sodium (Protonix) 40 mg DAILYAC 03/17/20 13:00 03/17/20 12:06 40 MG Polyethylene Glycol (miraLAX PACKET) 17 gm DAILY 03/17/20 12:00 03/17/20 12:06 17 GM Potassium Chloride (Klor-Con) 20 meq [id number] 03/15/20 08:00 03/16/20 09:05 20 MEQ Prednisone (Prednisone) 60 mg 1X ONCE 03/09/20 13:30 03/09/20 13:31 DC 03/09/20 14:00 60 MG Sertraline HCl (Zoloft) 25 mg DAILY 03/15/20 15:00 03/17/20 08:30 25 MG Sodium Chloride 1,000 ml @ 75 mls/hr [id number] 03/16/20 11:00 03/17/20 02:09 75 MLS/HR Results All relevant outside records, renal labs, imaging studies, telemetry/EKG's were reviewed. Other Most recent renal ultrasound: FINDINGS: The right kidney measures 8.0 x 4.5 x 4.2 cm. The left kidney measures 8.7 x 3.9 x 3.2 cm. Echogenic appearing bilateral kidneys. Small cysts identified in the bilateral kidneys. Urinary bladder is mildly distended. Partially visualized right pleural effusion. IMPRESSION: 1.Echogenic appearing bilateral kidneys probably medical renal disease. 2. Cystic structures identified in the bilateral kidneys probably cysts. Justicifation of Admission Dx: Justifications for Admission: Justification of Admission Dx: Yes ARELY BROWN MD Mar 17, 2020 12:31
[2020-03-17 14:13] LABS: BILIRUBIN,URINE NEGATIVE (NEG); CLARITY,URINE CLEAR; COLOR,URINE YELLOW; NITRITE,URINE NEGATIVE (NEG); PROTEIN,URINE NEGATIVE (NEG-TRACE); UROBILINOGEN,URINE 0.2 mg/dL (0.2 mg/dL)
[2020-03-17 14:32] LABS: BACTERIA,URINE 0 /HPF (0-FEW); RBC,URINE 0 /HPF (0-2); SQUAMOUS EPITHELIAL CELL,UR FEW /LPF; WBC,URINE 0 /HPF (0-4)
[2020-03-17] MEDS: AMITRIPTYLINE HCL 25 MG TABLET. PO SCH (21:45)
[2020-03-17] MEDS: ASA/APAP/CAFFEINE 250/250/65MG TABLET. PO PRN (21:46)
[2020-03-18] MEDS: HYDROcodone/APAP 5/325MG 1 TAB TABLET PO PRN ×3 (02:17→19:20)
[2020-03-18] MEDS: IV NORMAL SALINE 1000ML BAG 1,000 ML IV SCH ×2 (02:54→15:43)
[2020-03-18 03:43] VITALS: BP 152/73
[2020-03-18 05:04] LABS: BASO % 1 % (0-3); EOS # 0.7 x10^3/uL (0.0-0.7); EOS % 13 % (0-3); HEMATOCRIT 25.1 % (36.0-47.0); HEMOGLOBIN 8.5 g/dL (12.0-15.5); LYMPH # 1.1 x10^3/uL (1.0-4.8); LYMPH % 18 % (24-48); MEAN CORPUSCULAR HEMOGLOBIN 30 pg (25-35); MEAN CORPUSCULAR HGB CONC 34 g/dL (31-37); MEAN CORPUSCULAR VOLUME 89 fL (79-100); MONO # 0.7 x10^3/uL (0.0-1.1); MONO % 12 % (0-9); NEUT # 3.3 x10^3/uL (1.8-7.7); NEUT % 57 % (31-73); PLATELET COUNT 179 x10^3/uL (140-400); RED BLOOD COUNT 2.83 x10^6/uL (3.50-5.40); RED CELL DISTRIBUTION WIDTH 13.5 % (11.5-14.5); WHITE BLOOD COUNT 5.8 x10^3/uL (4.0-11.0)
[2020-03-18 05:32] LABS: CREATININE 2.7 mg/dL (0.6-1.0); GFR 17.8; POTASSIUM 4.3 mmol/L (3.5-5.1)
[2020-03-18] MEDS: dilTIAZem HCL 30 MG TABLET PO SCH ×3 (06:09→21:43)
[2020-03-18] MEDS: LEVOTHYROXINE 88 MCG TABLET PO SCH (06:09)
[2020-03-18 07:00] VITALS: BP 119/58
[2020-03-18] MEDS: POTASSIUM CHLORIDE 20 MEQ TABLET.ER. PO SCH (08:00)
[2020-03-18] MEDS: SERTRALINE 25 MG TABLET. PO SCH (08:11)
[2020-03-18] MEDS: POLYETHYLENE GLYCOL 3350 17 GM PACKET. PO SCH (08:11)
[2020-03-18] MEDS: PANTOPRAZOLE 40 MG TABLET.DR. PO SCH (08:11)
[2020-03-18] MEDS: CYANOCOBALAMIN (VITAMIN B-12) 1,000 MCG/ML VIAL IM SCH (08:12)
[2020-03-18] MEDS: LACTOBACILLUS RHAMNOSUS GG 1 CAPSULE. PO SCH ×2 (08:12→21:43)
--- NOTE | 2020-03-18 09:08 | PDOC ---
IM PROGRESS NOTES- Subjective Subjective As per staff she has headaches and she thinks it is due to Cardizem. However she had headaches even prior to this. Objective Vitals/I&O Vital Signs Date Time Temp Pulse Resp B/P (MAP) Pulse Ox O2 Delivery O2 Flow Rate FiO2 03/18/20 07:00 98.9 68 21 119/58 (78) 93 Room Air 98.9 03/17/20 11:10 2.0 I & O 03/17/20 03/17/20 03/18/20 15:00 23:00 07:00 Intake Total 390 ml 1600 ml 1240 ml Output Total 1500 ml 1640 ml 30 ml Balance -1110 ml -40 ml 1210 ml Physical Exam Physical Exam General appearance - alert,ill appearing, and in no distress and oriented to person, place, and time, thin Mental Status - alert, oriented Chest -decreased breath sounds at bases, chest tube right lung Heart - S1 and S2 normal Abdomen - soft, nontender Neurological - alert and oriented Extremities - no pedal edema Skin - warm and dry Labs Laboratory Tests Test 03/17/20 13:35 03/17/20 14:05 03/18/20 04:55 Urine Collection Type Unknown Urine Color Yellow Urine Clarity Clear Urine pH 6.0 (<5.0-8.0) Urine Specific [place] <=1.005 (1.000-1.030) Urine Protein Negative mg/dL (NEG-TRACE) Urine Glucose (UA) Negative mg/dL (NEG) Urine Ketones (Stick) Negative mg/dL (NEG) Urine Blood Negative (NEG) Urine Nitrite Negative (NEG) Urine Bilirubin Negative (NEG) Urine Urobilinogen Dipstick 0.2 mg/dL (0.2 mg/dL) Urine Leukocyte Esterase Negative (NEG) Urine RBC 0 /HPF (0-2) Urine WBC 0 /HPF (0-4) Urine Squamous Epithelial Cells Few /LPF Urine Bacteria 0 /HPF (0-FEW) Uric Acid 3.0 mg/dL (2.6-6.0) White Blood Count 5.8 x10^3/uL (4.0-11.0) Red Blood Count 2.83 x10^6/uL (3.50-5.40) L Hemoglobin 8.5 g/dL (12.0-15.5) L Hematocrit 25.1 % (36.0-47.0) L Mean Corpuscular Volume 89 fL (79-100) Mean Corpuscular Hemoglobin 30 pg (25-35) Mean Corpuscular Hemoglobin Concent 34 g/dL (31-37) Red Cell Distribution Width 13.5 % (11.5-14.5) Platelet Count 179 x10^3/uL (140-400) Neutrophils (%) (Auto) 57 % (31-73) Lymphocytes (%) (Auto) 18 % (24-48) L Monocytes (%) (Auto) 12 % (0-9) H Eosinophils (%) (Auto) 13 % (0-3) H Basophils (%) (Auto) 1 % (0-3) Neutrophils # (Auto) 3.3 x10^3/uL (1.8-7.7) Lymphocytes # (Auto) 1.1 x10^3/uL (1.0-4.8) Monocytes # (Auto) 0.7 x10^3/uL (0.0-1.1) Eosinophils # (Auto) 0.7 x10^3/uL (0.0-0.7) Basophils # (Auto) 0.0 x10^3/uL (0.0-0.2) Sodium Level 138 mmol/L (136-145) Potassium Level 4.3 mmol/L (3.5-5.1) Chloride Level 107 mmol/L (98-107) Carbon Dioxide Level 21 mmol/L (21-32) Anion Gap 10 (6-14) Blood Urea Nitrogen 36 mg/dL (7-20) H Creatinine 2.7 mg/dL (0.6-1.0) H Estimated GFR (Cockcroft-Gault) 17.8 Glucose Level 89 mg/dL (70-99) Calcium Level 8.0 mg/dL (8.5-10.1) L Laboratory Tests 03/18/20 04:55 Laboratory Tests 03/18/20 04:55 Meds Current Medications Medications (Trade) Dose Ordered Sig/Eliza Route PRN Reason Start Time Stop Time Status Last Admin Dose Admin Acetaminophen/ Aspirin/Caffeine (Excedrin Migraine) 1 tab PRN Q6HRS PRN PO MIGRAINE HEADACHE 03/17/20 10:00 03/17/20 21:46 Polyethylene Glycol (miraLAX PACKET) 17 gm DAILY PO 03/17/20 12:00 03/18/20 08:11 Pantoprazole Sodium (Protonix) 40 mg DAILYAC PO 03/17/20 13:00 03/18/20 08:11 Assessment Assessment Problems Medical Problems: (1) Acute renal failure Status: Acute (2) Adult failure to thrive Status: Acute (3) Anemia Status: Acute (4) Secondary spontaneous pneumothorax Status: Acute FINAL IMPRESSION: 1. Spontaneous right Pneumothorax.worsened. 2. Chronic obstructive pulmonary disease with emphysema. 3. Chronic kidney disease, creatinine of 3. 4. Hypothyroidism. 5. Anxiety with depression. Plan Patient has a chest tube in the right lung. Last creatinine is 2.7. Hemoglobin has improved to 9.9 yesterday recheck CBC BMP in a.m. Continue chest tube management. start Miralax. Right pneumothorax- Chest x-ray yesterday shows improvement Anemia-hemoglobin is 8.5. Plan Plan For more details regarding further plans, please refer to the orders. Justifications for Admission Other Justification Nutrition Consultation Dietary Evaluation: Recommendations by RD: Dietary education by RD, Increase Calorie Intake, Protein supplementation Comments: REC continuing renal diet with Nepro (vanilla) BID (B&D), honoring food preferences. Expected Outcomes/Goals: pt will meet >75% of needs PO- goal ongoing Malnutrition Findings: Food and Nutrition Intake (Sev: <50% est energy req 5days Body Fat Depletion (Non Severe: Mild Depletion Weight Status: Underweight ZAKIYA LEVY MD Mar 18, 2020 09:08
[2020-03-18] MEDS ORDERED: ACETAMINOPHEN 325 MG TABLET. PO PRN (10:15)
[2020-03-18] MEDS: ONDANSETRON ODT 4 MG TAB.RAPDIS. PO PRN (10:18)
[2020-03-18] MEDS: LORazepam 0.5 MG TABLET PO PRN ×2 (10:21→17:42)
--- NOTE | 2020-03-18 10:56 | RAD ---
Portable AP chest 03/18/2020. Reason for exam: Pneumothorax. Comparison is made with a study of the previous day. A small bore chest tube remains in place on the right. Right-sided pneumothorax has significantly increased in size, mostly laterally. There is up to 6 cm pleural separation. No new infiltrate is seen on the left. Heart size is normal. IMPRESSION: Significant enlargement of the right pneumothorax. FOR INTERNAL CODING PURPOSES Critical result: Findings discussed with the patient's nurse at 03/18/2020 10:52 AM. She stated she would inform the nurse practitioner of the findings. RESULT CODE: (C) Electronically signed by: Jesus Headley Jr., MD (03/18/2020 10:53 AM) [email or web address]
[2020-03-18 11:00] VITALS: BP 152/72
--- NOTE | 2020-03-18 13:01 | PDOC ---
PULMONARY PROGRESS NOTES DATE: 03/18/20 TIME: 12:59 Subjective Patient remains on room air with chest tube in place Chest tube has continuous air leak today, awaiting chest x-ray results Afebrile overnight denies any shortness of breath, chest pain, increased cough, No overnight concerns from nursing Vitals Vital Signs Date Time Temp Pulse Resp B/P (MAP) Pulse Ox O2 Delivery O2 Flow Rate FiO2 03/18/20 11:31 95 Room Air 03/18/20 11:00 98.0 83 22 152/72 (98) 98.0 03/17/20 11:10 2.0 ROS: No Nausea, No Chest Pain, No Abdominal Pain, No Increase Cough General: Alert, Oriented X4 Lungs: Clear Cardiovascular: S1, S2 Abdomen: Soft Neuro Exam: Alert Extremities: No Edema Skin: Warm, Dry Labs Laboratory Tests Test 03/17/20 13:35 03/17/20 14:05 03/18/20 04:55 Urine Collection Type Unknown Urine Color Yellow Urine Clarity Clear Urine pH 6.0 (<5.0-8.0) Urine Specific [place] <=1.005 (1.000-1.030) Urine Protein Negative mg/dL (NEG-TRACE) Urine Glucose (UA) Negative mg/dL (NEG) Urine Ketones (Stick) Negative mg/dL (NEG) Urine Blood Negative (NEG) Urine Nitrite Negative (NEG) Urine Bilirubin Negative (NEG) Urine Urobilinogen Dipstick 0.2 mg/dL (0.2 mg/dL) Urine Leukocyte Esterase Negative (NEG) Urine RBC 0 /HPF (0-2) Urine WBC 0 /HPF (0-4) Urine Squamous Epithelial Cells Few /LPF Urine Bacteria 0 /HPF (0-FEW) Uric Acid 3.0 mg/dL (2.6-6.0) White Blood Count 5.8 x10^3/uL (4.0-11.0) Red Blood Count 2.83 x10^6/uL (3.50-5.40) Hemoglobin 8.5 g/dL (12.0-15.5) Hematocrit 25.1 % (36.0-47.0) Mean Corpuscular Volume 89 fL (79-100) Mean Corpuscular Hemoglobin 30 pg (25-35) Mean Corpuscular Hemoglobin Concent 34 g/dL (31-37) Red Cell Distribution Width 13.5 % (11.5-14.5) Platelet Count 179 x10^3/uL (140-400) Neutrophils (%) (Auto) 57 % (31-73) Lymphocytes (%) (Auto) 18 % (24-48) Monocytes (%) (Auto) 12 % (0-9) Eosinophils (%) (Auto) 13 % (0-3) Basophils (%) (Auto) 1 % (0-3) Neutrophils # (Auto) 3.3 x10^3/uL (1.8-7.7) Lymphocytes # (Auto) 1.1 x10^3/uL (1.0-4.8) Monocytes # (Auto) 0.7 x10^3/uL (0.0-1.1) Eosinophils # (Auto) 0.7 x10^3/uL (0.0-0.7) Basophils # (Auto) 0.0 x10^3/uL (0.0-0.2) Sodium Level 138 mmol/L (136-145) Potassium Level 4.3 mmol/L (3.5-5.1) Chloride Level 107 mmol/L (98-107) Carbon Dioxide Level 21 mmol/L (21-32) Anion Gap 10 (6-14) Blood Urea Nitrogen 36 mg/dL (7-20) Creatinine 2.7 mg/dL (0.6-1.0) Estimated GFR (Cockcroft-Gault) 17.8 Glucose Level 89 mg/dL (70-99) Calcium Level 8.0 mg/dL (8.5-10.1) Laboratory Tests Test 03/17/20 13:35 03/17/20 14:05 03/18/20 04:55 Urine Collection Type Unknown Urine Color Yellow Urine Clarity Clear Urine pH 6.0 (<5.0-8.0) Urine Specific [place] <=1.005 (1.000-1.030) Urine Protein Negative mg/dL (NEG-TRACE) Urine Glucose (UA) Negative mg/dL (NEG) Urine Ketones (Stick) Negative mg/dL (NEG) Urine Blood Negative (NEG) Urine Nitrite Negative (NEG) Urine Bilirubin Negative (NEG) Urine Urobilinogen Dipstick 0.2 mg/dL (0.2 mg/dL) Urine Leukocyte Esterase Negative (NEG) Urine RBC 0 /HPF (0-2) Urine WBC 0 /HPF (0-4) Urine Squamous Epithelial Cells Few /LPF Urine Bacteria 0 /HPF (0-FEW) Uric Acid 3.0 mg/dL (2.6-6.0) White Blood Count 5.8 x10^3/uL (4.0-11.0) Red Blood Count 2.83 x10^6/uL (3.50-5.40) Hemoglobin 8.5 g/dL (12.0-15.5) Hematocrit 25.1 % (36.0-47.0) Mean Corpuscular Volume 89 fL (79-100) Mean Corpuscular Hemoglobin 30 pg (25-35) Mean Corpuscular Hemoglobin Concent 34 g/dL (31-37) Red Cell Distribution Width 13.5 % (11.5-14.5) Platelet Count 179 x10^3/uL (140-400) Neutrophils (%) (Auto) 57 % (31-73) Lymphocytes (%) (Auto) 18 % (24-48) Monocytes (%) (Auto) 12 % (0-9) Eosinophils (%) (Auto) 13 % (0-3) Basophils (%) (Auto) 1 % (0-3) Neutrophils # (Auto) 3.3 x10^3/uL (1.8-7.7) Lymphocytes # (Auto) 1.1 x10^3/uL (1.0-4.8) Monocytes # (Auto) 0.7 x10^3/uL (0.0-1.1) Eosinophils # (Auto) 0.7 x10^3/uL (0.0-0.7) Basophils # (Auto) 0.0 x10^3/uL (0.0-0.2) Sodium Level 138 mmol/L (136-145) Potassium Level 4.3 mmol/L (3.5-5.1) Chloride Level 107 mmol/L (98-107) Carbon Dioxide Level 21 mmol/L (21-32) Anion Gap 10 (6-14) Blood Urea Nitrogen 36 mg/dL (7-20) Creatinine 2.7 mg/dL (0.6-1.0) Estimated GFR (Cockcroft-Gault) 17.8 Glucose Level 89 mg/dL (70-99) Calcium Level 8.0 mg/dL (8.5-10.1) Medications Active Scripts Medications Dose Route/Sig Max Daily Dose Days Date Category Excedrin Migraine Caplet (Aspirin/Acetaminophen/Caffeine) 1 Each Tablet 1 Each PO PRN BID PRN 03/09/20 Reported Levothyroxine Sodium 88 Mcg Tablet 1 Tab PO DAILY 03/09/20 Reported Amitriptyline Hcl 50 Mg Tablet 1 Tab PO QHS 10/14/15 Reported Hydrocodone-Apap 5-325 (Hydrocodone Bit/Acetaminophen) 1 Each Tablet 1 Tab PO PRN Q12HRS PRN 10/14/15 Reported Lorazepam 0.5 Mg Tablet 0.5 Mg PO TID PRN 10/13/15 Reported Comments CXR 03/17/20 IMPRESSION: Persistent however improved right apical pneumothorax with a right sided pigtail catheter. Previously seen nodular opacity in the right midlung is less distinctly visualized Tiny left pleural effusion or pleural thickening is unchanged CT chest CT chest reviewed, chest tube needs to be replaced Chest x-ray Right basilar thoracostomy tube is in similar position with interval increase in right basilar pneumothorax measuring 2.2 cm pleural separation, previously 1.0 cm pleural separation. Increase in trace right pleural effusion. Similar aeration of the left lung with small left pleural effusion and adjacent compressive atelectasis versus infiltrate. Pulmonary emphysematous changes appear similar with biapical pleural-parenchymal scarring. Impression . IMPRESSION: 1. Nontraumatic spontaneous right-sided pneumothorax. This is the first time she had the pneumothorax, likely related to chronic obstructive pulmonary disease. 2. Interstitial infiltrates, more on the right than on the left. Could be related to mild re-expansion interstitial edema. 3. Underlying chronic obstructive pulmonary disease. 4. SY--- ongoing Plan . Chest tube placed was replaced on 03/15/2020, chest tube continues to have persistent air leak, now continuous air leak, awaiting chest x-ray results Chest x-ray shows recurrence of right-sided pneumothorax, chest tube advanced and subsequent chest x-ray obtained which shows reexpansion of the right bone Follow chest x-rays daily Continue supplemental oxygen to keep sats above 92%--- now on room air Patient could benefit from endobronchial valve will discuss with Dr. Beyer on Thursday Follow Renal recommendations PT/OT DVT/GI PPX D/W RN DNR DEACON HINES MD Mar 18, 2020 13:01
--- NOTE | 2020-03-18 14:13 | RAD ---
EXAM: CHEST AP ONLY 03/18/2020 11:50 AM CLINICAL INDICATION:Pneumothorax, chest tube placement advancement COMPARISON:Chest radiograph 03/18/2020 at 9:44 AM TECHNIQUE:AP upright view of the chest FINDINGS:The pigtail pleural catheter is in slightly different position at the right lung base. The large right pneumothorax on prior radiograph has significantly decreased in size. There is a small residual right inferior lateral pneumothorax. Coarse bilateral interstitial opacities are unchanged. Small left pleural effusion versus pleural thickening is unchanged. The cardiomediastinal silhouette is stable. There is calcified atherosclerosis in the thoracic aorta. Soft tissue gas is in the upper right chest wall. IMPRESSION:Significantly decreased, now small right pneumothorax. Electronically signed by: Nina Sexton MD (03/18/2020 2:11 PM) [id number]
[2020-03-18] MEDS: ASA/APAP/CAFFEINE 250/250/65MG TABLET. PO PRN (14:24)
[2020-03-18 15:00] VITALS: BP 159/78
[2020-03-18] MEDS: ENOXAPARIN 30 MG/0.3 ML SYRINGE. SQ SCH (15:07)
[2020-03-18 19:12] VITALS: BP 147/69
[2020-03-18] MEDS: AMITRIPTYLINE HCL 25 MG TABLET. PO SCH (21:43)
[2020-03-18 22:53] VITALS: BP 167/72
[2020-03-19 03:10] VITALS: BP 139/63
[2020-03-19] MEDS: IV NORMAL SALINE 1000ML BAG 1,000 ML IV SCH ×2 (03:19→20:58)
[2020-03-19] MEDS: HYDROcodone/APAP 5/325MG 1 TAB TABLET PO PRN ×3 (03:22→23:18)
[2020-03-19] MEDS: PANTOPRAZOLE 40 MG TABLET.DR. PO SCH (05:42)
[2020-03-19] MEDS: LEVOTHYROXINE 88 MCG TABLET PO SCH (05:42)
[2020-03-19] MEDS: dilTIAZem HCL 30 MG TABLET PO SCH ×3 (05:43→20:58)
[2020-03-19 07:30] VITALS: BP 88/55
[2020-03-19] MEDS: ASA/APAP/CAFFEINE 250/250/65MG TABLET. PO PRN (08:09)
[2020-03-19] MEDS: SERTRALINE 25 MG TABLET. PO SCH (08:09)
[2020-03-19] MEDS: CYANOCOBALAMIN (VITAMIN B-12) 1,000 MCG/ML VIAL IM SCH (08:09)
[2020-03-19] MEDS: POTASSIUM CHLORIDE 20 MEQ TABLET.ER. PO SCH (08:10)
[2020-03-19] MEDS: POLYETHYLENE GLYCOL 3350 17 GM PACKET. PO SCH (08:10)
[2020-03-19] MEDS: LACTOBACILLUS RHAMNOSUS GG 1 CAPSULE. PO SCH ×2 (08:10→20:56)
--- NOTE | 2020-03-19 08:32 | PDOC ---
PROGRESS NOTES Date of Service: DATE: 03/19/20 TIME: 08:30 Subjective Subjective no new problems Objective Objective Vital Signs Date Time Temp Pulse Resp B/P (MAP) Pulse Ox O2 Delivery O2 Flow Rate FiO2 03/19/20 05:43 71 130/60 03/19/20 04:23 18 91 Room Air 03/19/20 03:10 98.1 98.1 Intake and Output 03/19/20 07:00 Intake Total 850 ml Output Total 1440 ml Balance -590 ml Intake Oral 850 ml Output Urine Total 1300 ml Chest Tube Drainage Total 140 ml Physical Exam Abdomen: Normal bowel sounds, Soft Heart: Regular rate Extremities: No clubbing General: Alert, Oriented X3 HEENT: Atraumatic Lungs: Clear to auscultation MUSCULOSKELETAL: No joint tenderness Neck: Supple Neuro: Normal speech Psych/Mental Status: Mental status NL Skin: No rashes COMMENT Rt chest tube Diagnosis Problem List Problems Medical Problems: (1) Acute renal failure Status: Acute (2) Adult failure to thrive Status: Acute (3) Anemia Status: Acute (4) Secondary spontaneous pneumothorax Status: Acute Assessment Assessment Problems Medical Problems: (1) Acute renal failure Status: Acute (2) Adult failure to thrive Status: Acute (3) Anemia Status: Acute (4) Secondary spontaneous pneumothorax Status: Acute FINAL IMPRESSION: 1. Spontaneous right Pneumothorax.first episode 2. Chronic obstructive pulmonary disease with emphysema. 3. Chronic kidney disease, creatinine of 3. 4. Hypothyroidism. 5. Anxiety with depression. Plan: small pneumothorax on cxr Patient has a chest tube in the right lung. Last creatinine is 2.7. Continue chest tube management. start Miralax. Right pneumothorax- Chest x-ray yesterday shows improvement Anemia-hemoglobin is 8.5. ? plans for [place] transfer for CT procedure. Plan Plan of Care Problems Medical Problems: (1) Acute renal failure Status: Acute (2) Adult failure to thrive Status: Acute (3) Anemia Status: Acute (4) Secondary spontaneous pneumothorax Status: Acute Comment Review of Relevant I have reviewed the following items rené (where applicable) has been applied. Medications Current Medications Acetaminophen (Tylenol) 650 mg PRN Q6HRS PRN PO MILD PAIN / TEMP > 100.3'F; Start 03/18/20 at 10:15 Iron Sucrose 200 mg/Sodium Chloride 110 ml @ 55 mls/hr 3X/WEEK IV ; Start 03/19/20 at 09:00; Stop 03/28/20 at 10:59 Vitals/I & O Vital Sign - Last 24 Hours 03/18/20 03/18/20 03/18/20 03/18/20 11:00 11:31 12:30 14:23 Temp 98.0 98.0 Pulse 83 83 Resp 22 B/P (MAP) 152/72 (98) 152/72 Pulse Ox 95 95 95 O2 Delivery Room Air Room Air Room Air 03/18/20 03/18/20 03/18/20 03/18/20 15:00 19:12 19:15 19:20 Temp 98.7 98.0 98.7 98.0 Pulse 82 76 Resp 22 18 18 B/P (MAP) 159/78 (105) 147/69 (95) Pulse Ox 94 96 O2 Delivery Room Air Room Air Room Air Room Air 03/18/20 03/18/20 03/18/20 03/19/20 20:20 21:43 22:53 03:10 Temp 98.2 98.1 98.2 98.1 Pulse 81 85 85 Resp 18 16 18 B/P (MAP) 147/69 167/72 (103) 139/63 (88) Pulse Ox 96 91 O2 Delivery Room Air Room Air Room Air 03/19/20 03/19/20 03/19/20 03:22 04:23 05:43 Pulse 71 Resp 18 18 B/P (MAP) 130/60 Pulse Ox 91 91 O2 Delivery Room Air Room Air Intake and Output 03/18/20 03/18/20 03/19/20 15:00 23:00 07:00 Intake Total 300 ml 240 ml 310 ml Output Total 500 ml 430 ml 510 ml Balance -200 ml -190 ml -200 ml Justifications for Admission Other Justification Nutrition Consultation Dietary Evaluation: Recommendations by RD: Dietary education by RD, Increase Calorie Intake, Protein supplementation Comments: REC continuing renal diet with Nepro (vanilla) BID (B&D), honoring food preferences. Expected Outcomes/Goals: pt will meet >75% of needs PO- goal ongoing Malnutrition Findings: Food and Nutrition Intake (Sev: <50% est energy req 5days Body Fat Depletion (Non Severe: Mild Depletion Weight Status: Underweight SUZAN HEARD MD Mar 19, 2020 08:32
[2020-03-19] MEDS ORDERED: CYAN10002 IM (08:49)
[2020-03-19] MEDS ORDERED: ENOX30DI3 SQ (08:49)
[2020-03-19] MEDS ORDERED: SERT25TA4 PO (08:49)
[2020-03-19] MEDS ORDERED: DILT30TA26 PO (08:49)
--- NOTE | 2020-03-19 08:50 | SNU/HH DC ---
DISCHARGE ORDERS DISCHARGE INFORMATION: FINAL DIAGNOSIS Problems Medical Problems: (1) Acute renal failure Status: Acute (2) Adult failure to thrive Status: Acute (3) Anemia Status: Acute (4) Secondary spontaneous pneumothorax Status: Acute CONDITION ON DISCHARGE: Stable CODE STATUS: Code Status: Full PRISON: SNF STAY <30 DAYS: No POST DISCHARGE ORDERS: ACTIVITY ORDERS: Activity as tolerated WEIGHT BEARING STATUS: As tolerated DIET AFTER DISCHARGE: Renal TREATMENT/EQUIPMENT ORDERS: ADAPTIVE EQUIPMENT NEEDED: Walker RESPIRATORY EQUIPMENT NEEDED: Oxygen Physical Therapy For: Evalulation/Treatment DISCHARGE MEDICATIONS: Home Meds Active Scripts Diltiazem Hcl (CARDIZEM TABLET) 30 Mg Tablet, 60 MG PO Q8HRS for htn for 30 Days, #180 TAB Prov:SUZAN HEARD MD 03/19/20 Sertraline Hcl (SERTRALINE HCL) 25 Mg Tablet, 25 MG PO DAILY for depression for 30 Days, #30 TAB Prov:SUZAN HEARD MD 03/19/20 Cyanocobalamin (Vitamin B-12) (CYANOCOBALAMIN INJECTION) 1,000 Mcg/1 Ml Vial, 1000 MCG IM DAILY for b12 def for 7 Days, EACH Prov:SUZAN HEARD MD 03/19/20 Enoxaparin Sodium (ENOXAPARIN SODIUM) 30 Mg/0.3 Ml Disp.syrin, 30 MG SQ Q24H for dvt pevention for 14 Days, DIS.SYR Prov:SUZAN HEARD MD 03/19/20 Reported Medications Levothyroxine Sodium (LEVOTHYROXINE SODIUM) 88 Mcg Tablet, 1 TAB PO DAILY for Thyroid supplement 03/09/20 Amitriptyline Hcl (AMITRIPTYLINE HCL) 50 Mg Tablet, 1 TAB PO QHS, #30 TAB 2 Refills 10/14/15 Hydrocodone Bit/Acetaminophen (HYDROCODONE-APAP 5-325 ) 1 Each Tablet, 1 TAB PO PRN Q12HRS PRN for PAIN, TAB 0 Refills 10/14/15 Lorazepam (LORAZEPAM) 0.5 Mg Tablet, 0.5 MG PO TID PRN for ANXIETY / AGITATION, TAB 10/13/15 Discontinued Reported Medications Aspirin/Acetaminophen/Caffeine (EXCEDRIN MIGRAINE CAPLET) 1 Each Tablet, 1 EACH PO PRN BID PRN for HEADACHE, TAB 03/09/20 SUZAN HEARD MD Mar 19, 2020 08:50
[2020-03-19] MEDS ORDERED: IRON SUCROSE COMPLEX 200 MG in IV NORMAL SALINE 100ML 100 ML IV SCH (09:00)
--- NOTE | 2020-03-19 10:45 | PDOC ---
DATE OF SERVICE DATE: 03/19/20 TIME: 10:42 SUBJECTIVE ROS Stable OBJECTIVE Vital Signs Vital Signs Date Time Temp Pulse Resp B/P (MAP) Pulse Ox O2 Delivery O2 Flow Rate FiO2 03/19/20 08:00 Room Air 2.0 03/19/20 07:30 98.7 65 16 88/55 (66) 95 98.7 I & 0 Intake and Output 03/19/20 07:00 Intake Total 850 ml Output Total 1440 ml Balance -590 ml Intake Oral 850 ml Output Urine Total 1300 ml Chest Tube Drainage Total 140 ml PHYSICAL EXAM Physical Exam GENERAL APPEARANCE: NAD HEENT: Eyes are sunken, sallow complexion. NECK: No increased JVD. LUNGS: Clear, non labored CARDIAC: S1S2 ABDOMEN: Scaphoid, nontender. EXTREMITIES: Diffuse muscle wasting. No edema. NEUROLOGIC: Nonfocal, nonlocalized. DIAGNOSIS/ASSESSMENT Assessment & Plan SY - Improving , No labs this am, good uop Supportive care , I/O, avoid nephrotoxins HypoKalemia- replace as needed CKD Abnormal renal function since 2015, No interval labs in [facility] records .Echogenic and small appearing bilateral kidneys probably medical renal disease. No history of diabetes mellitus or hypertension per her report and records. Recommned fu with Renal as OP(Non urgent ) Cystic structures identified in the bilateral kidneys probably cysts. Nontraumatic spontaneous right-sided pneumothorax. likely related to chronic obstructive pulmonary disease. Plans for transfer to [facility] for CT procedure Anemia - Fe def , r/o causes for Fe def - per primary PRBC on 03/15 , per primary COMMENT/RELEVANT DATA Meds Current Medications Medications (Trade) Dose Ordered Sig/Eliza Start Time Stop Time Status Last Admin Dose Admin Acetaminophen (Tylenol) 650 mg PRN Q6HRS PRN 03/18/20 10:15 Acetaminophen/ Aspirin/Caffeine (Excedrin Migraine) 1 tab PRN Q6HRS PRN 03/17/20 10:00 03/19/20 08:09 1 TAB Acetaminophen/ Hydrocodone Bitart (Lortab 5/325) 1 tab PRN Q6HRS PRN 03/09/20 20:15 03/19/20 03:22 1 TAB Albuterol/ Ipratropium (Duoneb) 9 ml 1X ONCE 03/09/20 13:30 03/09/20 13:31 DC 03/09/20 13:52 9 ML Amitriptyline HCl (Elavil) 50 mg QHS 03/09/20 21:00 03/18/20 21:43 50 MG Aspirin (Aspirin Chewable) 324 mg 1X ONCE 03/09/20 13:30 03/09/20 13:31 DC 03/09/20 13:59 324 MG Cyanocobalamin (Vitamin B-12) 1,000 mcg DAILY 03/13/20 09:00 03/19/20 08:09 1,000 MCG Diltiazem HCl (Cardizem) 60 mg Q8HRS 03/14/20 17:00 03/19/20 05:43 60 MG Diphenhydramine HCl (Benadryl) 25 mg PRN Q6HRS PRN 03/15/20 13:15 Enoxaparin Sodium (Lovenox 30mg Syringe) 30 mg Q24H 03/11/20 12:00 03/18/20 15:07 30 MG Fentanyl Citrate (Fentanyl 2ml Vial) 50 mcg 1X ONCE 03/09/20 14:30 03/09/20 14:31 DC 03/09/20 14:41 50 MCG Influenza Virus Vaccine Quadrival (Fluzone Quad Syringe) 0.5 ml ONCE ONCE 03/10/20 09:00 03/10/20 09:01 DC 03/10/20 09:37 0.5 ML Iron Sucrose 200 mg/Sodium Chloride 110 ml @ 55 mls/hr 3X/WEEK 03/19/20 09:00 03/28/20 10:59 03/19/20 09:26 55 MLS/HR Lactobacillus Rhamnosus (Culturelle) 1 cap BID 03/12/20 21:00 03/19/20 08:10 1 CAP Levofloxacin/ Dextrose 100 ml @ 100 mls/hr Q48H 03/12/20 11:00 03/17/20 12:20 DC 03/16/20 10:53 100 MLS/HR Levofloxacin/ Dextrose (Levaquin Per Pharmacy) 1 each PRN DAILY PRN 03/12/20 10:15 03/17/20 12:20 DC Levothyroxine Sodium (Synthroid) 88 mcg DAILY06 03/10/20 09:00 03/19/20 05:42 88 MCG Lidocaine HCl (Buffered Lidocaine 1%) 6 ml 1X ONCE 03/14/20 15:00 03/14/20 15:01 DC 03/14/20 14:40 6 ML Lidocaine HCl (Lidocaine 1% 20ml Vial) 40 ml 1X ONCE 03/09/20 14:30 03/09/20 14:31 DC 03/09/20 14:48 40 ML Lorazepam (Ativan Inj) 1 mg 1X ONCE 03/09/20 14:30 03/09/20 14:31 DC 03/09/20 14:40 1 MG Lorazepam (Ativan) 0.5 mg PRN TID PRN 03/09/20 20:15 03/18/20 17:42 0.5 MG Ondansetron HCl (Zofran Odt) 4 mg PRN Q6HRS PRN 03/12/20 14:15 03/18/20 10:18 4 MG Ondansetron HCl (Zofran) 4 mg PRN Q8HRS PRN 03/09/20 15:45 03/10/20 15:44 DC Pantoprazole Sodium (Protonix) 40 mg DAILYAC 03/17/20 13:00 03/19/20 05:42 40 MG Polyethylene Glycol (miraLAX PACKET) 17 gm DAILY 03/17/20 12:00 03/19/20 08:10 17 GM Potassium Chloride (Klor-Con) 20 meq [id number] 03/15/20 08:00 03/19/20 08:10 20 MEQ Prednisone (Prednisone) 60 mg 1X ONCE 03/09/20 13:30 03/09/20 13:31 DC 03/09/20 14:00 60 MG Sertraline HCl (Zoloft) 25 mg DAILY 03/15/20 15:00 03/19/20 08:09 25 MG Sodium Chloride 1,000 ml @ 75 mls/hr [id number] 03/16/20 11:00 03/19/20 03:19 75 MLS/HR Results All relevant outside records, renal labs, imaging studies, telemetry/EKG's were reviewed. Justicifation of Admission Dx: Justifications for Admission: Justification of Admission Dx: Yes MARISELA PRIETO MD Mar 19, 2020 10:44
--- NOTE | 2020-03-19 11:20 | PDOC ---
PULMONARY PROGRESS NOTES DATE: 03/19/20 TIME: 11:18 Subjective Patient remains on room air with chest tube in place Chest tube has air leak with cough Patient remains on room air, currently working with physical therapy Denies any shortness of breath or cough No overnight concerns from nursing Vitals Vital Signs Date Time Temp Pulse Resp B/P (MAP) Pulse Ox O2 Delivery O2 Flow Rate FiO2 03/19/20 08:00 Room Air 2.0 03/19/20 07:30 98.7 65 16 88/55 (66) 95 98.7 ROS: No Nausea, No Chest Pain, No Abdominal Pain, No Increase Cough General: Alert, Oriented X4 Lungs: Clear Cardiovascular: S1, S2 Abdomen: Soft Neuro Exam: Alert Extremities: No Edema Skin: Warm, Dry Labs Laboratory Tests Test 03/17/20 13:35 03/17/20 14:05 03/18/20 04:55 Urine Collection Type Unknown Urine Color Yellow Urine Clarity Clear Urine pH 6.0 (<5.0-8.0) Urine Specific [place] <=1.005 (1.000-1.030) Urine Protein Negative mg/dL (NEG-TRACE) Urine Glucose (UA) Negative mg/dL (NEG) Urine Ketones (Stick) Negative mg/dL (NEG) Urine Blood Negative (NEG) Urine Nitrite Negative (NEG) Urine Bilirubin Negative (NEG) Urine Urobilinogen Dipstick 0.2 mg/dL (0.2 mg/dL) Urine Leukocyte Esterase Negative (NEG) Urine RBC 0 /HPF (0-2) Urine WBC 0 /HPF (0-4) Urine Squamous Epithelial Cells Few /LPF Urine Bacteria 0 /HPF (0-FEW) Urine Random Sodium 57 mmol/L (Not Estab.) Uric Acid 3.0 mg/dL (2.6-6.0) White Blood Count 5.8 x10^3/uL (4.0-11.0) Red Blood Count 2.83 x10^6/uL (3.50-5.40) Hemoglobin 8.5 g/dL (12.0-15.5) Hematocrit 25.1 % (36.0-47.0) Mean Corpuscular Volume 89 fL (79-100) Mean Corpuscular Hemoglobin 30 pg (25-35) Mean Corpuscular Hemoglobin Concent 34 g/dL (31-37) Red Cell Distribution Width 13.5 % (11.5-14.5) Platelet Count 179 x10^3/uL (140-400) Neutrophils (%) (Auto) 57 % (31-73) Lymphocytes (%) (Auto) 18 % (24-48) Monocytes (%) (Auto) 12 % (0-9) Eosinophils (%) (Auto) 13 % (0-3) Basophils (%) (Auto) 1 % (0-3) Neutrophils # (Auto) 3.3 x10^3/uL (1.8-7.7) Lymphocytes # (Auto) 1.1 x10^3/uL (1.0-4.8) Monocytes # (Auto) 0.7 x10^3/uL (0.0-1.1) Eosinophils # (Auto) 0.7 x10^3/uL (0.0-0.7) Basophils # (Auto) 0.0 x10^3/uL (0.0-0.2) Sodium Level 138 mmol/L (136-145) Potassium Level 4.3 mmol/L (3.5-5.1) Chloride Level 107 mmol/L (98-107) Carbon Dioxide Level 21 mmol/L (21-32) Anion Gap 10 (6-14) Blood Urea Nitrogen 36 mg/dL (7-20) Creatinine 2.7 mg/dL (0.6-1.0) Estimated GFR (Cockcroft-Gault) 17.8 Glucose Level 89 mg/dL (70-99) Calcium Level 8.0 mg/dL (8.5-10.1) Medications Active Scripts Medications Dose Route/Sig Max Daily Dose Days Date Category Excedrin Migraine Caplet (Aspirin/Acetaminophen/Caffeine) 1 Each Tablet 1 Each PO PRN BID PRN 03/09/20 Reported Levothyroxine Sodium 88 Mcg Tablet 1 Tab PO DAILY 03/09/20 Reported Amitriptyline Hcl 50 Mg Tablet 1 Tab PO QHS 10/14/15 Reported Hydrocodone-Apap 5-325 (Hydrocodone Bit/Acetaminophen) 1 Each Tablet 1 Tab PO PRN Q12HRS PRN 10/14/15 Reported Lorazepam 0.5 Mg Tablet 0.5 Mg PO TID PRN 10/13/15 Reported Comments CXR 03/17/20 IMPRESSION: Persistent however improved right apical pneumothorax with a right sided pigtail catheter. Previously seen nodular opacity in the right midlung is less distinctly visualized Tiny left pleural effusion or pleural thickening is unchanged CT chest CT chest reviewed, chest tube needs to be replaced Chest x-ray Right basilar thoracostomy tube is in similar position with interval increase in right basilar pneumothorax measuring 2.2 cm pleural separation, previously 1.0 cm pleural separation. Increase in trace right pleural effusion. Similar aeration of the left lung with small left pleural effusion and adjacent compressive atelectasis versus infiltrate. Pulmonary emphysematous changes appear similar with biapical pleural-parenchymal scarring. Impression . IMPRESSION: 1. Nontraumatic spontaneous right-sided pneumothorax. This is the first time she had the pneumothorax, likely related to chronic obstructive pulmonary disease. 2. Interstitial infiltrates, more on the right than on the left. Could be related to mild re-expansion interstitial edema. 3. Underlying chronic obstructive pulmonary disease. 4. SY--- ongoing Plan . I spoke with Dr. Reed regarding endobronchial valve placement, patient will transfer to later in the a.m. Chest tube placed was replaced on 03/15/2020, chest tube continues to have persis tent air leak, with cough Chest x-ray shows ongoing small right pneumothorax Follow chest x-rays daily Continue supplemental oxygen to keep sats above 92%--- now on room air Follow Renal recommendations PT/OT DVT/GI PPX D/W RN DNR DEACON HINES MD Mar 19, 2020 11:19
[2020-03-19 12:01] VITALS: BP 132/67
[2020-03-19] MEDS: ENOXAPARIN 30 MG/0.3 ML SYRINGE. SQ SCH (13:13)
--- NOTE | 2020-03-19 13:21 | NUR ---
SS following up with discharge planning. SS reviewed pt chart and discussed with pt RN. Pt is currently on room air. Chest tube remains at this time. SS received request for referral to [facility], ; fax [phone], for Endobronchial Valve. Dr. Cadena discussing with Dr. Reed. SS contacted [facility] and spoke with Grover in the transfer team. SS faxed demographic sheet as requested. Rapid COVID19 test requested by [facility]. COVID19 test pending at this time. Grover from [place] reported that she would contact SS with further information. Packet placed on chart. SS will continue to follow for discharge planning.
[2020-03-19] MEDS: LORazepam 0.5 MG TABLET PO PRN ×2 (13:46→20:56)
--- NOTE | 2020-03-19 13:50 | NUR ---
SS following up with discharge planning. Pt accepted at [facility]. SS received notification from Grover in the transfer team, , stating that Dr. Reed is accepting physician. She requested transport at 0915 tomorrow, 03/20/2020. She reported that she will contact SS at 0900 tomorrow morning with bed number and report number. Transfer form signed by pt and placed on chart with packet. SS will continue to follow for discharge planning.
--- NOTE | 2020-03-19 14:54 | RAD ---
Portable chest x-ray compared to similar exam dated March 182019 for pneumothorax. FINDINGS: Lungs are hyperinflated. There is redemonstration of right basilar chest tube. Small right basilar pneumothorax persists, perhaps subtly worse today. Left costophrenic pleural effusion versus infiltrate may be slightly worse as well. Heart size unchanged. IMPRESSION: 1. Persistent right basilar pneumothorax, slightly more conspicuous enhancement perhaps slightly larger today. 2. Left costophrenic opacity also subtly more conspicuous and hence possibly larger today. This is likely a pleural effusion and/or infiltrate. Electronically signed by: Morris Angela MD (03/19/2020 2:51 PM) [id number]
[2020-03-19 15:26] VITALS: BP 167/82
--- NOTE | 2020-03-19 17:35 | PDOC ---
F/U PHYSCH PROG NOTE Objective: Vital Signs: Vital Signs Date Time Temp Pulse Resp B/P (MAP) Pulse Ox O2 Delivery O2 Flow Rate FiO2 03/19/20 17:19 20 97 Room Air 2.0 03/19/20 15:26 97.8 76 167/82 (110) 97.8 Labs: Laboratory Tests Test 03/19/20 13:43 SARS-CoV-2 Antigen (Rapid) Negative (NEGATIVE) Medications: Current Medications Medications (Trade) Dose Ordered Sig/Eliza Start Time Stop Time Status Last Admin Dose Admin Acetaminophen (Tylenol) 650 mg PRN Q6HRS PRN 03/18/20 10:15 Acetaminophen/ Aspirin/Caffeine (Excedrin Migraine) 1 tab PRN Q6HRS PRN 03/17/20 10:00 03/19/20 08:09 1 TAB Acetaminophen/ Hydrocodone Bitart (Lortab 5/325) 1 tab PRN Q6HRS PRN 03/09/20 20:15 03/19/20 17:19 1 TAB Albuterol/ Ipratropium (Duoneb) 9 ml 1X ONCE 03/09/20 13:30 03/09/20 13:31 DC 03/09/20 13:52 9 ML Amitriptyline HCl (Elavil) 50 mg QHS 03/09/20 21:00 03/18/20 21:43 50 MG Aspirin (Aspirin Chewable) 324 mg 1X ONCE 03/09/20 13:30 03/09/20 13:31 DC 03/09/20 13:59 324 MG Cyanocobalamin (Vitamin B-12) 1,000 mcg DAILY 03/13/20 09:00 03/19/20 08:09 1,000 MCG Diltiazem HCl (Cardizem) 60 mg Q8HRS 03/14/20 17:00 03/19/20 13:04 60 MG Diphenhydramine HCl (Benadryl) 25 mg PRN Q6HRS PRN 03/15/20 13:15 Enoxaparin Sodium (Lovenox 30mg Syringe) 30 mg Q24H 03/11/20 12:00 03/19/20 13:13 30 MG Fentanyl Citrate (Fentanyl 2ml Vial) 50 mcg 1X ONCE 03/09/20 14:30 03/09/20 14:31 DC 03/09/20 14:41 50 MCG Influenza Virus Vaccine Quadrival (Fluzone Quad 9629-1212 Syringe) 0.5 ml ONCE ONCE 03/10/20 09:00 03/10/20 09:01 DC 03/10/20 09:37 0.5 ML Iron Sucrose 200 mg/Sodium Chloride 110 ml @ 55 mls/hr 3X/WEEK 03/19/20 09:00 03/28/20 10:59 03/19/20 09:26 55 MLS/HR Lactobacillus Rhamnosus (Culturelle) 1 cap BID 03/12/20 21:00 03/19/20 08:10 1 CAP Levofloxacin/ Dextrose 100 ml @ 100 mls/hr Q48H 03/12/20 11:00 03/17/20 12:20 DC 03/16/20 10:53 100 MLS/HR Levofloxacin/ Dextrose (Levaquin Per Pharmacy) 1 each PRN DAILY PRN 03/12/20 10:15 03/17/20 12:20 DC Levothyroxine Sodium (Synthroid) 88 mcg DAILY06 03/10/20 09:00 03/19/20 05:42 88 MCG Lidocaine HCl (Buffered Lidocaine 1%) 6 ml 1X ONCE 03/14/20 15:00 03/14/20 15:01 DC 03/14/20 14:40 6 ML Lidocaine HCl (Lidocaine 1% 20ml Vial) 40 ml 1X ONCE 03/09/20 14:30 03/09/20 14:31 DC 03/09/20 14:48 40 ML Lorazepam (Ativan Inj) 1 mg 1X ONCE 03/09/20 14:30 03/09/20 14:31 DC 03/09/20 14:40 1 MG Lorazepam (Ativan) 0.5 mg PRN TID PRN 03/09/20 20:15 03/19/20 13:46 0.5 MG Ondansetron HCl (Zofran Odt) 4 mg PRN Q6HRS PRN 03/12/20 14:15 03/18/20 10:18 4 MG Ondansetron HCl (Zofran) 4 mg PRN Q8HRS PRN 03/09/20 15:45 03/10/20 15:44 DC Pantoprazole Sodium (Protonix) 40 mg DAILYAC 03/17/20 13:00 03/19/20 05:42 40 MG Polyethylene Glycol (miraLAX PACKET) 17 gm DAILY 03/17/20 12:00 03/19/20 08:10 17 GM Potassium Chloride (Klor-Con) 20 meq [id number] 03/15/20 08:00 03/19/20 08:10 20 MEQ Prednisone (Prednisone) 60 mg 1X ONCE 03/09/20 13:30 03/09/20 13:31 DC 03/09/20 14:00 60 MG Sertraline HCl (Zoloft) 25 mg DAILY 03/15/20 15:00 03/19/20 08:09 25 MG Sodium Chloride 1,000 ml @ 75 mls/hr [id number] 03/16/20 11:00 03/19/20 03:19 75 MLS/HR Physical Exam: Mental Status Exam: Mental Status Exam: female appears older than her stated age. Cooperative and interactive Alert and oriented Thought processes linear and goal-directed Denies auditory or visual hallucinations. Denies suicidal or homicidal thoughts. No abnormal perception noted Mood is improving Affect is improving Insight is good Judgment is good Impulse control is good Attention span and concentration good Recent and remote memory intact. Physical Exam: Refer to Physician's note. SOCK FOLDER: No focal deficit MSK: No EPS, TDK, or abnormal involuntary movements Diagnosis: Major depressive disorder, recurrent, moderate Generalized anxiety disorder . Assessment: She is a 64-year-old female with prior history of depression and anxiety overwhelmed with her unavoidable circumstances. Previously she was on Prozac however it was discontinued due to some insurance issues. Recommended her that Zoloft will be lot better for her as she is on multiple medication and Prozac can increase the drug levels of many medications while Zoloft is safer in that respect. She is in agreement with the plan and voiced understanding. Plan: Continue Zoloft 25 mg once daily for depression and anxiety. Continue other medications as prescribed. Risks, benefits, alternatives of the treatment are discussed. She is cautioned about the use of benzodiazepines and educated. She expressed understanding but anxious to discontinue. Adverse drug reaction of the medications explained in detail with black box warnings ZAHIRA DIAZ MD Mar 19, 2020 17:35
[2020-03-19 19:15] VITALS: BP 144/69
--- NOTE | 2020-03-19 19:15 | NUR ---
Assessment completed vss poc explained pt denied pain at time of assessment will resume care and continue to monitor pt.
[2020-03-19] MEDS: AMITRIPTYLINE HCL 25 MG TABLET. PO SCH (20:56)
[2020-03-19 22:59] VITALS: BP 156/74
[2020-03-20 02:39] VITALS: BP 130/63
[2020-03-20] MEDS: ASA/APAP/CAFFEINE 250/250/65MG TABLET. PO PRN (02:45)
[2020-03-20] MEDS: LEVOTHYROXINE 88 MCG TABLET PO SCH (06:09)
[2020-03-20] MEDS: dilTIAZem HCL 30 MG TABLET PO SCH (06:09)
[2020-03-20] MEDS: PANTOPRAZOLE 40 MG TABLET.DR. PO SCH ×2 (06:09→07:41)
[2020-03-20 07:00] VITALS: BP 130/65
[2020-03-20] MEDS: POLYETHYLENE GLYCOL 3350 17 GM PACKET. PO SCH (07:40)
[2020-03-20] MEDS: LORazepam 0.5 MG TABLET PO PRN (07:41)
[2020-03-20] MEDS: CYANOCOBALAMIN (VITAMIN B-12) 1,000 MCG/ML VIAL IM SCH (07:41)
[2020-03-20] MEDS: LACTOBACILLUS RHAMNOSUS GG 1 CAPSULE. PO SCH (07:41)
[2020-03-20] MEDS: POTASSIUM CHLORIDE 20 MEQ TABLET.ER. PO SCH (07:41)
[2020-03-20] MEDS: SERTRALINE 25 MG TABLET. PO SCH (07:41)
--- NOTE | 2020-03-20 08:46 | PDOC ---
PROGRESS NOTES Date of Service: DATE: 03/20/20 TIME: 08:41 Subjective Subjective no new problems , transfer to [facility] today Objective Objective Vital Signs Date Time Temp Pulse Resp B/P (MAP) Pulse Ox O2 Delivery O2 Flow Rate FiO2 03/20/20 07:00 98.1 71 18 130/65 (86) 94 Room Air 98.1 03/19/20 17:19 2.0 Intake and Output 03/20/20 07:00 Intake Total 1720 ml Output Total 2950 ml Balance -1230 ml Intake Oral 1720 ml Output Urine Total 2950 ml Physical Exam Abdomen: Normal bowel sounds, Soft Heart: Regular rate Extremities: No clubbing General: Alert, Oriented X3 HEENT: Atraumatic Lungs: Clear to auscultation MUSCULOSKELETAL: No joint tenderness Neck: Supple Neuro: Normal speech Psych/Mental Status: Mental status NL Skin: No rashes COMMENT Rt chest tube Diagnosis Problem List Problems Medical Problems: (1) Acute renal failure Status: Acute (2) Adult failure to thrive Status: Acute (3) Anemia Status: Acute (4) Secondary spontaneous pneumothorax Status: Acute Assessment Assessment Problems Medical Problems: (1) Acute renal failure Status: Acute (2) Adult failure to thrive Status: Acute (3) Anemia Status: Acute (4) Secondary spontaneous pneumothorax Status: Acute FINAL IMPRESSION: 1. Spontaneous right Pneumothorax,first episode 2. Chronic obstructive pulmonary disease with emphysema. 3. Chronic kidney disease, creatinine of 3. 4. Hypothyroidism. 5. Anxiety with depression. Plan: spoke with RAUL diane screen -neg transfer to another hospital today. small pneumothorax on cxr Patient has a chest tube in the right lung , repositioned by Ir. Last creatinine is 2.7. stable chronic Continue chest tube management. spoke with hematology anemia due to CRF. appreciate psyche input Anemia-hemoglobin is 8.5.after 1 u prbc plans for [place] transfer for endo bronchial valve procedure. Plan Plan of Care Problems Medical Problems: (1) Acute renal failure Status: Acute (2) Adult failure to thrive Status: Acute (3) Anemia Status: Acute (4) Secondary spontaneous pneumothorax Status: Acute Comment Review of Relevant I have reviewed the following items rené (where applicable) has been applied. Labs Laboratory Tests Test 03/19/20 13:43 SARS-CoV-2 Antigen (Rapid) Negative (NEGATIVE) Medications Current Medications Iron Sucrose 200 mg/Sodium Chloride 110 ml @ 55 mls/hr 3X/WEEK IV Last administered on 03/19/20at 09:26; Start 03/19/20 at 09:00; Stop 03/28/20 at 10:59 Vitals/I & O Vital Sign - Last 24 Hours 03/19/20 03/19/20 03/19/20 03/19/20 12:01 13:04 15:26 17:19 Temp 97.7 97.8 97.7 97.8 Pulse 69 69 76 Resp 18 18 20 B/P (MAP) 132/67 (88) 132/67 167/82 (110) Pulse Ox 97 97 97 O2 Delivery Room Air Room Air Room Air O2 Flow Rate 2.0 03/19/20 03/19/20 03/19/20 03/19/20 18:15 19:15 19:15 20:58 Temp 98.1 98.1 Pulse 77 80 Resp 20 18 B/P (MAP) 144/69 (94) 144/69 Pulse Ox 97 98 O2 Delivery Room Air Room Air Room Air 03/19/20 03/19/20 03/20/20 03/20/20 22:59 23:18 00:18 02:39 Temp 98.1 98.7 98.1 98.7 Pulse 76 73 Resp 18 18 18 18 B/P (MAP) 156/74 (101) 130/63 (85) Pulse Ox 96 96 96 97 O2 Delivery Room Air Room Air Room Air Room Air 03/20/20 03/20/20 06:09 07:00 Temp 98.1 98.1 Pulse 74 71 Resp 18 B/P (MAP) 131/61 130/65 (86) Pulse Ox 94 O2 Delivery Room Air Intake and Output 03/19/20 03/19/20 03/20/20 15:00 23:00 07:00 Intake Total 1000 ml 300 ml 420 ml Output Total 750 ml 1400 ml 800 ml Balance 250 ml -1100 ml -380 ml Justifications for Admission Other Justification Nutrition Consultation Dietary Evaluation: Recommendations by RD: Dietary education by RD, Increase Calorie Intake, Protein supplementation Comments: REC continuing renal diet with Nepro (vanilla) BID (B&D), honoring food preferences. Expected Outcomes/Goals: pt will meet >75% of needs PO- goal ongoing Malnutrition Findings: Food and Nutrition Intake (Sev: <50% est energy req 5days Body Fat Depletion (Non Severe: Mild Depletion Weight Status: Underweight SUZAN HEARD MD Mar 20, 2020 08:46
--- NOTE | 2020-03-20 09:28 | NUR ---
Patient discharged to [facility] per EMS. Report given to RAUL Moore. New PIV inserted at left forearm per receiving nurse's request.
--- NOTE | 2020-03-22 10:38 | PDOC ---
Provider Note Date of Service: DATE: 03/22/20 TIME: 10:37 Provider Note Discharge summary dictated.#[id number]. Justifications for Admission Other Justification SUZAN HEARD MD Mar 22, 2020 10:38
--- NOTE | 2020-03-22 12:13 | DS ---
DATE OF DISCHARGE: 03/20/2020 REASON FOR ADMISSION TO THE HOSPITAL: Spontaneous pneumothorax. CONSULTATIONS: 1. Dr. Cadena. 2. Dr. Vargas, Nephrology. 3. Dr. Ellis, Hematology. 4. Dr. Avery, psychiatrist. PROCEDURES DONE: Ultrasound of the kidneys, chest tube placement, CT chest. HOSPITAL COURSE: The patient is a 64-year-old female with chronic COPD and chronic kidney disease, malnutrition and depression. She came with shortness of breath, worsening, was brought to the hospital, shows spontaneous right pneumothorax. The patient had a chest tube placed in the Emergency Room and was admitted to the hospital. The patient was seen by Pulmonology, continued chest tube with water seal, but the patient continues to have air leak. The patient had a CT chest which shows some malposition of the chest tube. Chest tube was repositioned by Interventional Radiology under CT guidance and in spite of that, the patient continues to have persistent air leak. It was felt that she needs to have endobronchial valve placed and we do not have this surgical procedure at [place]. The patient was transferred to [facility]. In the meantime, the patient also has developed chronic kidney disease, creatinine 3, came down to 2.5 with IV fluids that remain there. Ultrasound of the kidneys shows chronic kidney disease. The patient was seen by Hematology because of anemia as well as chronic kidney disease. It was thought anemia could be due to chronic kidney disease. The patient was given 1 unit of packed RBC, hemoglobin went up to 9. Anxiety and depression, was seen by psychiatrist, was started on antidepressants. On the whole, the patient's condition remained stable, but because of continued persistent air leak, the patient was to [place] for endobronchial valve placement. FINAL DIAGNOSES: 1. Spontaneous right pneumothorax. 2. Chronic smoker. 3. Chronic kidney disease, stage 4. 4. Chronic anxiety and depression. 5. CT scan shows lung nodule 1-1.5 cm, needs further evaluation down the road when she is stabilized. DISPOSITION: To [facility]. SUZAN HEARD MD DR: ANGELA/lei JOB#: [id number] / [id number]
== END 2020-03-20 09:27 | disposition short-term general hospital (02) | DRG 199 ==
LOC: ER 13:12 → ED HOLD 15:28 → 2 SOUTH 18:33
PROVIDERS: ADMIT Internal Medicine; ATTEND Internal Medicine
PROC: 0W9930Z Drainage of Right Pleural Cavity with Drainage Device, Percutaneous Approach (ICD-10-PCS; 2020-03-09)
PROC: 30233N1 Transfusion of Nonautologous Red Blood Cells into Peripheral Vein, Percutaneous Approach (ICD-10-PCS; principal; 2020-03-15)
DX: J93.83 Other pneumothorax (principal); N17.0 Acute kidney failure with tubular necrosis; F33.1 Major depressive disorder, recurrent, moderate; R45.851 Suicidal ideations; N17.9 Acute kidney failure, unspecified; N18.3 Chronic kidney disease, stage 3 (moderate); Z20.828 Contact with and (suspected) exposure to other viral communicable diseases; F03.90 Unspecified dementia, unspecified severity, without behavioral disturbance, psychotic disturbance, mood disturbance, and anxiety; G43.909 Migraine, unspecified, not intractable, without status migrainosus; I50.9 Heart failure, unspecified; E03.9 Hypothyroidism, unspecified; J43.9 Emphysema, unspecified; E53.8 Deficiency of other specified B group vitamins; J93.82 Other air leak; F41.1 Generalized anxiety disorder; E87.6 Hypokalemia; I73.9 Peripheral vascular disease, unspecified; D64.9 Anemia, unspecified; F20.9 Schizophrenia, unspecified; Z87.891 Personal history of nicotine dependence; Z99.81 Dependence on supplemental oxygen; Z88.0 Allergy status to penicillin; Z82.5 Family history of asthma and other chronic lower respiratory diseases; Z81.8 Family history of other mental and behavioral disorders; Z82.49 Family history of ischemic heart disease and other diseases of the circulatory system
CPT/HCPCS: 32551; 32557; 36415; 71045; 71250; 76770; 80048; 80053; 81001; 82550; 82607; 82668; 82728; 83520; 83540; 83550; 83605; 83690; 83735; 83880; 84145; 84156; 84165; 84300; 84484; 84550; 85007; 85025; 85045; 86850; 86900; 86901; 86920; 87426; 90471; 90686; 93005; 94640; 96361; 96374; 96375; 99285; A4215; C1729; C1894; J1650; J1756; J1956; J2060; J3010; J3420; J3490; J7030; J7512; P9016; 97530-GO; 97535-GO; G0378; U0003-CS

== ENCOUNTER → 2020-12-20 | Outpatient (CLI) | payer OTHER, MEDICAID ==
[2020-12-20] VITALS (7 sets, daily range): BP systolic 108–169; BP diastolic 56–83
[~2020-12-20] MED LIST changes: +ASPI1TAB31 PO; +CYAN10002 IM; +DILT30TA26 PO; +ENOX30DI3 SQ; +LEVO88TA4 PO; +SERT-266 PO
[2020-12-20 09:57] LABS: HEMATOCRIT 20.5 % (36.0-47.0); HEMOGLOBIN 6.8 g/dL (12.0-15.5)
== END | disposition home or self-care (01) ==
LOC: OPS 09:05
PROVIDERS: ATTEND Internal Medicine
DX: D50.8 Other iron deficiency anemias (principal); I70.0 Atherosclerosis of aorta; J44.9 Chronic obstructive pulmonary disease, unspecified
CPT/HCPCS: 36415; 36430; 85014; 85018; 86850; 86900; 86901; 86920; P9016

== ENCOUNTER → 2021-01-03 | Outpatient (CLI) | payer OTHER, MEDICAID ==
[2020-12-20 15:27] VITALS: BP 142/67
--- NOTE | 2021-01-03 16:11 | RAD ---
EXAMINATION: XR CHEST 2V CLINICAL HISTORY: RIGHT HIP PAIN STATUS/POST STENT TO RIGHT LUNG. COPD EXAM DATE/TIME: 01/03/2021 1:45 PM COMPARISON: 03/11/2020 FINDINGS: Lines, Tubes, and Devices: Postsurgical changes medial right mid to upper lung zone. Cardiomediastinal Silhouette: Normal heart size. Aortic atherosclerotic calcification. Lungs and Pleura: Pulmonary hyperexpansion likely related to history of COPD. No evidence of focal ai rspace consolidation, pleural effusion, or pneumothorax. Bones and Soft Tissues: Degenerative changes of the thoracic spine. IMPRESSION: No evidence of acute cardiopulmonary abnormality. Electronically signed by: Torsten Browne DO (01/03/2021 4:09 PM) [id number]
--- NOTE | 2021-01-03 16:13 | RAD ---
EXAMINATION: XR BILATERAL HIP (WITH OR WITHOUT PELVIS) 2 VIEWS_RIGHT CLINICAL HISTORY: Right hip pain following fall TECHNIQUE: XR BILATERAL HIP (WITH OR WITHOUT PELVIS) 2 VIEWS_RIGHT Number of Images/Views: 2 COMPARISON: None FINDINGS: Joint spaces and alignment are relatively well-maintained and the right hip. Left hip unremarkable on limited evaluation. Pubic symphysis and SI joints maintained. Partially visualized mild lumbar degen erative changes. No acute fracture. IMPRESSION: No acute osseous abnormality. Electronically signed by: Torsten Browne DO (01/03/2021 4:10 PM) [id number]
== END ==
LOC: LAB 12:43
PROVIDERS: ATTEND Internal Medicine
DX: J44.9 Chronic obstructive pulmonary disease, unspecified (principal); I70.0 Atherosclerosis of aorta; M47.815 Spondylosis without myelopathy or radiculopathy, thoracolumbar region; M25.551 Pain in right hip; Z98.890 Other specified postprocedural states
CPT/HCPCS: 71046; 73502

== ENCOUNTER → 2021-04-02 | Outpatient (CLI) | payer OTHER, MEDICAID ==
[~2021-04-02] VITALS: Ht 170.2 cm; Wt 31.8 kg
[2021-04-02 10:56] LABS: HEMATOCRIT 21.2 % (36.0-47.0)
[2021-04-02 11:45] VITALS: BP 119/57
[2021-04-02 12:30] VITALS: BP 128/59
[2021-04-02 13:30] VITALS: BP 121/69
[2021-04-02 14:21] VITALS: BP 149/72
== END | disposition home or self-care (01) ==
LOC: OPS 09:42
PROVIDERS: ATTEND Internal Medicine Nephrology
DX: D64.9 Anemia, unspecified (principal); I70.0 Atherosclerosis of aorta; J44.9 Chronic obstructive pulmonary disease, unspecified; Z98.890 Other specified postprocedural states
CPT/HCPCS: 36415; 36430; 85014; 85018; 86850; 86900; 86901; 86920; P9016